=== PATIENT | female | born 1955 | race Hispanic/Latino ===

== ENCOUNTER 2016-12-28 22:10 | Emergency (ER) | payer MEDICARE, MEDICAID ==
[2016-12-28 22:11] VITALS: BMI 28.7
[2016-12-28 22:37] VITALS: TEMP 98.2
[2016-12-28 23:23] VITALS: RESP 16
--- NOTE | 2016-12-29 00:17 | ED PDOC ---
Arrival/HPI <Daily Elijah - Last Filed: 12/29/16 01:34> - General Historian: Patient - History of Present Illness Time/Duration: 4-6 hours Symptom Onset: Sudden Symptom Course: Worsening Quality: Aching Severity Level: 7 Activities at Onset: Light Context: Walking <Dari Smith - Last Filed: 12/29/16 01:54> - General Chief Complaint: Trauma Time Seen by Provider: 12/28/16 23:16 - History of Present Illness Narrative History of Present Illness (Text): 12/28/16 23:56 This is a 61Y F with PMH HTN, SLE, scleroderma, PUD, CKD and CAD who came to ED for L leg swelling secondary to a fall. She reports that this evening she was out at a jainism outing. She was getting out of a van and stumbled and hit her L anterior gomes. She did not hit her head or lose consciousness. She noticed there was a bruise in the area. It started to get bigger in size and patient is on Effient. She is unable to bare weight from the pain. 12/29/16 01:21 (Dari Smith) Past Medical History - Provider Review Nursing Documentation Reviewed: Yes <NathalyElijah jansen DO - Last Filed: 12/29/16 01:34> - Provider Review Nursing Documentation Reviewed: Yes - Infectious Disease Hx of Infectious Diseases: None - Tetanus Immunization Tetanus Immunization: Unknown - Cardiac Hx Pacemaker: No - Pulmonary Hx Respiratory Disorders: Yes - Neurological Hx Paralysis: No - HEENT Hx HEENT Disorder: Yes (eyeglasses) - Renal Hx Kidney Stones: Yes - Endocrine/Metabolic Hx Hyperthyroidism: Yes Hx Hypothyroidism: Yes - Hematological/Oncological Hx Blood Transfusions: Yes (2013) Hx Blood Transfusion Reaction: No - Musculoskeletal/Rheumatological Hx Musculoskeletal Disorders: Yes (SCLERODERMA) - Gastrointestinal Hx Gastroesophageal Reflux: Yes - Psychiatric Hx Emotional Abuse: No Hx Physical Abuse: No Hx Substance Use: No - Past Surgical History Past Surgical History: No Previous - Surgical History Hx Cardiac Catheterization: Yes - Anesthesia Hx Anesthesia Reactions: No Hx Malignant Hyperthermia: No - Suicidal Assessment Feels Threatened In Home Enviroment: No <Dari Smith - Last Filed: 12/29/16 01:54> Family/Social History - Physician Review Nursing Documentation Reviewed: Yes Family/Social History: Hypertension Smoking Status: Never Smoked Hx Alcohol Use: Yes (ON OCCASION) Hx Substance Use: No Hx Substance Use Treatment: No <Dari Smith - Last Filed: 12/29/16 01:54> Allergies/Home Meds <Elijah Ambrosio DO - Last Filed: 12/29/16 01:34> <Dari Smith - Last Filed: 12/29/16 01:54> Allergies/Adverse Reactions: Allergies chicken derived Allergy (Severe, Verified 05/25/16 18:29) ANAPHYLAXIS Home Medications: Home Meds Medication Instructions Recorded Confirmed ALPRAZolam [Xanax] 0.25 mg PO PRN PRN 12/28/16 12/28/16 Aspirin [Ecotrin] 81 mg PO DAILY 12/28/16 12/28/16 Atorvastatin Calcium 40 mg PO DAILY 12/28/16 12/28/16 Dexlansoprazole [Dexilant] 60 mg PO DAILY 12/28/16 12/28/16 Doxepin HCl 10 mg PO HS 12/28/16 12/28/16 FLUoxetine [Prozac] 10 mg PO DAILY 12/28/16 12/28/16 Hydroxychloroquine Sulfate 200 mg PO BID 12/28/16 12/28/16 Levothyroxine [Synthroid] 137 mcg PO DAILY 12/28/16 12/28/16 Nitroglycerin [Nitroglycerin 0.2 mg TD DAILY 12/28/16 12/28/16 Transdermal System] Prasugrel [Effient] 10 mg PO DAILY 12/28/16 12/28/16 Tizanidine HCl [Zanaflex Capsule] 4 mg PO HS 12/28/16 12/28/16 Valsartan [Diovan] 80 mg PO DAILY 12/28/16 12/28/16 amLODIPine [Norvasc] 5 mg PO DAILY 12/28/16 12/28/16 hydroCHLOROthiazide [Hydrodiuril] 25 mg PO DAILY 12/28/16 12/28/16 traMADol [Ultram] 50 mg PO TID 12/28/16 12/28/16 Review of Systems - Physician Review All systems were reviewed & negative as marked: Yes <Elijah Ambrosio DO - Last Filed: 12/29/16 01:34> - Physician Review All systems were reviewed & negative as marked: Yes - Review of Systems Constitutional: Normal. absent: Fevers Respiratory: Normal. absent: SOB, Cough Cardiovascular: Normal. absent: Chest Pain, Palpitations, Edema Gastrointestinal: Normal. absent: Abdominal Pain, Diarrhea, Nausea, Vomiting Musculoskeletal: Other (pain in L leg ) Skin: Normal Neurological: Normal. absent: Dizziness, Focal Weakness <Dari Smith - Last Filed: 12/29/16 01:54> Physical Exam Blood Pressure: Hypertensive <Daily MEADElijah - Last Filed: 12/29/16 01:34> Vital Signs Reviewed: Yes Temperature: Afebrile Blood Pressure: Hypertensive Pulse: Regular Respiratory Rate: Normal Appearance: Positive for: Well-Appearing, Non-Toxic, Comfortable Pain Distress: None Mental Status: Positive for: Alert and Oriented X 3 - Systems Exam Head: Present: Atraumatic, Normocephalic Pupils: Present: PERRL Extroacular Muscles: Present: EOMI Mouth: Present: Moist Mucous Membranes Neck: Present: Normal Range of Motion Respiratory/Chest: Present: Clear to Auscultation, Good Air Exchange. No: Respiratory Distress, Accessory Muscle Use Cardiovascular: Present: Regular Rate and Rhythm, Normal S1, S2. No: Murmurs Abdomen: Present: Normal Bowel Sounds. No: Tenderness, Distention, Peritoneal Signs Back: Present: Normal Inspection Upper Extremity: Present: Normal Inspection. No: Cyanosis, Edema Lower Extremity: Present: Swelling (in L anterior tibia with bruising ). No: Edema Neurological: Present: GCS=15, CN II-XII Intact, Speech Normal Skin: Present: Warm, Dry, Normal Color. No: Rashes Psychiatric: Present: Alert, Oriented x 3, Normal Insight, Normal Concentration <Dari Smith - Last Filed: 12/29/16 01:54> Vital Signs Temp Pulse Resp BP Pulse Ox 12/29/16 01:51 76 16 172/80 H 99 12/29/16 00:30 73 16 162/80 H 100 12/29/16 00:05 66 185/90 H 12/28/16 23:20 68 16 191/90 H 100 12/28/16 22:32 98.2 F 74 19 192/90 H 98 Medical Decision Making <Daily MEADElijah - Last Filed: 12/29/16 01:34> Re-evaluation Time: 01:10 Reassessment Condition: Unchanged - RAD Interpretation Software Engineering Associate Manager: ED Physician <Dari Smith - Last Filed: 12/29/16 01:54> ED Course and Treatment: 12/29/16 01:35 Patient seen and evaluated with resident. Agree with HPI, clinical findings, plan and treatment. Patient is a 61 year old female who presents to the emergency department complaining of swelling to left leg s/p mechanical fall in the evening. X-ray Left tib/fib ordered, which is negative for any acute fracture. Patient is stable for discharge. Advised to present to emergency department for new/worsening symptoms and follow up with PMD within few days. (Elijah Ambrosio DO) 12/29/16 00:24 Impression: This is a 61Y F with PMH HTN, SLE, scleroderma, PUD, CKD and CAD who came to ED for L leg swelling secondary to mechanical fall. Patient noticed increased swelling and bruising in the area. She is also on Effient and is unable to bare weight on leg. Patient also noted to be hypertensive with SBP of 190. Differential Diagnosis: -- Hematoma versus fracture Plan: -- XR of L tibia/fibula -- Hydralazine IVP once -- Reassess and disposition Prior Visits: Notes and results from previous visits were reviewed. Progress Note: XR of L tibia/fibula showed soft tissue swelling. Negative for fracture. Patient able to bare weight. Pulses intact. Discharge Instructions: Re-evaluation. Patient feels better. Discussed results and plan with patient who expresses understanding. All questions answered and there is agreement with the plan to discharge home with instructions. Patient stable for discharge. Return if symptoms persist or worsen. ( Dari Smith) - RAD Interpretation Narrative RAD Interpretations (Text): 12/29/16 01:22 L knee XR showed soft tissue swelling. No fractures seen. (Dari Smith) Radiology Orders: 12/28/16 23:24 TIBIA FIBULA LEFT [RAD] Stat - Medication Orders Current Medication Orders: Discontinued Medications Hydralazine HCl (Apresoline) 10 mg IVP STAT STA Stop: 12/28/16 23:44 Last Admin: 12/29/16 00:05 Dose: 10 mg - Scribe Statement The provider has reviewed the documentation as recorded by the Scribe <Elijah Ambrosio DO - Last Filed: 12/29/16 01:34> <Dari Smith - Last Filed: 12/29/16 01:54> - Scribe Statement Jennifer Sahu Provider Scribe Attestation: All medical record entries made by the Scribe were at my direction and personally dictated by me. I have reviewed the chart and agree that the record accurately reflects my personal performance of the history, physical exam, medical decision making, and the department course for this patient. I have also personally directed, reviewed, and agree with the discharge instructions and disposition. (Elijah Ambrosio DO) Disposition/Present on Arrival <Elijah Ambrosio DO - Last Filed: 12/29/16 01:34> - Present on Arrival Any Indicators Present on Arrival: No History of DVT/PE: No History of Uncontrolled Diabetes: No Urinary Catheter: No History of Decub. Ulcer: No History Surgical Site Infection Following: None - Disposition Have Diagnosis and Disposition been Completed?: Yes Disposition Time: 01:15 Patient Plan: Discharge <Dari Smith - Last Filed: 12/29/16 01:54> - Disposition Diagnosis: Hematoma of leg Disposition: HOME/ ROUTINE Patient Problems: Current Active Problems Problem Status Onset Hematoma of leg Acute Condition: FAIR Discharge Instructions (ExitCare): Hematoma (ED) Print Language: HAITIAN Additional Instructions: Geovany Neto, thank you for letting us take care of you today. Your provider was Dr. Smith. You were treated for L tibia hematoma. The emergency medical care you received today was directed at your acute symptoms. If you were prescribed any medication, please fill it and take as directed. It may take several days for your symptoms to resolve. Return to the Emergency Department if your symptoms worsen, do not improve, or if you have any other problems. Please contact your doctor or call one of the physicians/clinics you have been referred to that are listed on the Patient Visit Information form that is included in your discharge packet. Bring any paperwork you were given at discharge with you along with any medications you are taking to your follow up visit. Our treatment cannot replace ongoing medical care by a primary care provider (PCP) outside of the emergency department. Thank you for allowing the [facility] hospital team to be part of your care today. If you had an X-Ray or CT scan: A Radiologist will review the ED reading if any change in treatment is needed we will contact you. Follow up with Dr. Hayward in AM. Prescriptions: Acetaminophen [Tylenol Extra Strength] 500 mg PO Q6H PRN #20 tablet PRN Reason: Pain, Moderate (4-7) Referrals: Donnell Hayward MD [Primary Care Provider] - Follow up with primary
[2016-12-29 01:51] VITALS: BP 172/80; PULSE 76; O2SAT 99
--- NOTE | 2016-12-29 09:20 | RAD ---
PROCEDURE: Radiographs of the left tibia and fibula. HISTORY: L hematoma s/p trip COMPARISON: None available. TECHNIQUE: Frontal and lateral views obtained. FINDINGS: BONES: No fracture or destructive lesion. JOINT SPACES: Unremarkable. OTHER FINDINGS: None. IMPRESSION: Unremarkable radiographs of the left tibia and fibula.
== END 2016-12-29 02:01 | disposition home or self-care (01) ==
LOC: ED 22:10
DX: S80.12XA Contusion of left lower leg, initial encounter (principal); W01.0XXA Fall on same level from slipping, tripping and stumbling without subsequent striking against object, initial encounter; Y92.89 Other specified places as the place of occurrence of the external cause
CPT/HCPCS: 73590; 96374; 99285; J0360

== ENCOUNTER 2017-01-05 10:41 | Day surgery (SDC) | payer MEDICARE, MEDICAID ==
[2017-01-02 13:28] VITALS: BMI 26.4
[2017-01-05] MEDS ORDERED: Etomidate 20 mg/10ml Inj IV ONE ×2 (12:59)
[2017-01-05] MEDS ORDERED: Lactated Ringer's 1,000 ML IV SCH (13:17)
[2017-01-05 13:48] VITALS: RESP 17
[2017-01-05 13:58] VITALS: TEMP 97.7
[2017-01-05 14:16] VITALS: BP 140/64; PULSE 60; O2SAT 99
== END 2017-01-05 14:53 | disposition home or self-care (01) ==
LOC: ENDO 10:41
PROVIDERS: ATTEND Internal Medicine Gastroenterology
DX: K22.70 Barrett's esophagus without dysplasia (principal); K44.9 Diaphragmatic hernia without obstruction or gangrene; R13.10 Dysphagia, unspecified; I25.10 Atherosclerotic heart disease of native coronary artery without angina pectoris; Z98.61 Coronary angioplasty status
CPT/HCPCS: 43235; J3010; J7040; J7120

== ENCOUNTER 2017-03-15 15:06 | Inpatient (IN) | payer MEDICARE, MEDICAID ==
[2017-03-15 15:38] VITALS: BMI 26.8
--- NOTE | 2017-03-15 15:42 | ED PDOC ---
Arrival/HPI - General Chief Complaint: Shortness Of Breath Time Seen by Provider: 03/15/17 15:24 Historian: Patient, Spouse - History of Present Illness Time/Duration: 1 week Symptom Onset: Gradual Symptom Course: Worsening Severity Level: Moderate Associated Symptoms (Text): 03/15/17 15:39 Patient complains of approximately one week history of shortness of breath, especially dyspnea on exertion. She had a syncopal episode several days ago. She denies any chest pain. No cough congestion or URI. No fever. No abdominal pain nausea or vomiting. She was seen by her PMD earlier today and directed to the emergency department. She has had several cardiac catheterizations last one was 05/25/2016 with an LAD stent. Past Medical History - Infectious Disease Hx of Infectious Diseases: None - Tetanus Immunization Tetanus Immunization: Unknown - Cardiac Hx Pacemaker: No - Pulmonary Hx Respiratory Disorders: Yes - Neurological Hx Paralysis: No - HEENT Hx HEENT Disorder: Yes (eyeglasses) - Renal Hx Kidney Stones: Yes - Endocrine/Metabolic Hx Hyperthyroidism: Yes Hx Hypothyroidism: Yes - Hematological/Oncological Hx Blood Transfusions: Yes (2013) Hx Blood Transfusion Reaction: No - Musculoskeletal/Rheumatological Hx Musculoskeletal Disorders: Yes (SCLERODERMA - LUPUS) - Gastrointestinal Hx Gastroesophageal Reflux: Yes - Psychiatric Hx Emotional Abuse: No Hx Physical Abuse: No Hx Substance Use: No - Past Surgical History Past Surgical History: No Previous - Surgical History Hx Cardiac Catheterization: Yes - Anesthesia Hx Anesthesia Reactions: No Hx Malignant Hyperthermia: No - Suicidal Assessment Feels Threatened In Home Enviroment: No Family/Social History - Physician Review Nursing Documentation Reviewed: Yes Family/Social History: Unknown Family HX Smoking Status: Never Smoked Hx Alcohol Use: Yes (ON OCCASION) Hx Substance Use: No Hx Substance Use Treatment: No Allergies/Home Meds Allergies/Adverse Reactions: Allergies chicken derived Allergy (Severe, Verified 01/02/17 13:28) ANAPHYLAXIS Home Medications: Home Meds Medication Instructions Recorded Confirmed Alprazolam [Xanax] 0.25 mg PO PRN PRN 03/15/17 03/15/17 Aspirin [Adult Low Dose Aspirin EC] 81 mg PO DAILY 03/15/17 03/15/17 Atorvastatin Calcium 40 mg PO DAILY 03/15/17 03/15/17 Dexlansoprazole [Dexilant] 60 mg PO DAILY 03/15/17 03/15/17 Doxepin HCl 10 mg PO HS 03/15/17 03/15/17 FLUoxetine [Fluoxetine HCl] 20 mg PO DAILY 03/15/17 03/15/17 Hydroxychloroquine Sulfate 400 mg PO DAILY 03/15/17 03/15/17 Levothyroxine [Synthroid] 137 mcg PO DAILY 03/15/17 03/15/17 Nitroglycerin [Nitroglycerin 0.2 mg TD DAILY 03/15/17 03/15/17 Transdermal System] Prasugrel [Effient] 10 mg PO DAILY 03/15/17 03/15/17 Tizanidine HCl 4 mg PO HS 03/15/17 03/15/17 Valsartan [Diovan] 80 mg PO DAILY 03/15/17 03/15/17 amLODIPine [Norvasc] 5 mg PO DAILY 03/15/17 03/15/17 hydroCHLOROthiazide [Hydrodiuril] 25 mg PO DAILY 03/15/17 03/15/17 traMADol [Ultram] 50 mg PO TID 03/15/17 03/15/17 Review of Systems - Physician Review All systems were reviewed & negative as marked: Yes - Review of Systems Constitutional: Fatigue. absent: Fevers Respiratory: SOB. absent: Cough, Sputum, Wheezing Cardiovascular: Syncope. absent: Chest Pain, Palpitations, Edema Gastrointestinal: Normal. absent: Abdominal Pain, Nausea, Vomiting Genitourinary Female: absent: Dysuria, Frequency Neurological: absent: Headache, Dizziness, Focal Weakness Physical Exam Vital Signs Temp Pulse Resp BP Pulse Ox 03/15/17 17:34 78 18 167/77 H 100 03/15/17 16:39 75 18 185/85 H 100 03/15/17 15:15 98.0 F 61 18 214/81 H 100 Temperature: Afebrile Blood Pressure: Hypertensive Pulse: Regular Respiratory Rate: Normal Appearance: Positive for: Well-Appearing, Non-Toxic, Comfortable Pain Distress: None Mental Status: Positive for: Alert and Oriented X 3 - Systems Exam Head: Present: Atraumatic, Normocephalic Pupils: Present: PERRL Extroacular Muscles: Present: EOMI Conjunctiva: Present: Normal Mouth: Present: Moist Mucous Membranes Pharnyx: No: ERYTHEMA, EXUDATE, TONSILS ENLARGED Neck: Present: Normal Range of Motion Respiratory/Chest: Present: Clear to Auscultation, Good Air Exchange, Decreased Breath Sounds. No: Respiratory Distress, Accessory Muscle Use, Tender to Palpation Cardiovascular: Present: Regular Rate and Rhythm, Normal S1, S2. No: Murmurs Abdomen: Present: Normal Bowel Sounds. No: Tenderness, Distention, Peritoneal Signs, Rebound, Guarding Rectal: Present: Occult Blood, Normal Rectal Tone. No: Rectal Tenderness, Gross Blood, Melena, Hemorrhoids, Fissures, Nodule/Mass/Lesions Upper Extremity: Present: Normal Inspection. No: Cyanosis, Edema Lower Extremity: Present: Normal Inspection. No: Edema Neurological: Present: GCS=15, CN II-XII Intact, Speech Normal, Motor Func Grossly Intact Skin: Present: Warm, Dry, Normal Color. No: Rashes Psychiatric: Present: Alert, Oriented x 3, Normal Insight, Normal Concentration Medical Decision Making ED Course and Treatment: 03/15/17 15:41 EKG shows normal sinus rhythm rate approximately [address] or T-wave changes 03/15/17 17:25 Rectal exam performed by me, chaperoned by EMT Becky, which showed brown stool, guaiac positive. Report Date : 03/15/2017 16:36:45 Procedure: Chest xray Dictator : Lawrence aBhena MD IMPRESSION: No active disease. - Lab Interpretations Lab Results: 03/15/17 16:00 03/15/17 16:00 Lab Results 03/15/17 16:00: Sodium 143, Potassium 3.4 L, Chloride 106, Carbon Dioxide 23, Anion Gap 17, BUN 18, Creatinine 1.2, Est GFR ( Amer) 55, Est GFR (Non- Af Amer) 46, Random Glucose 95, Calcium 9.1, Total Bilirubin 0.4, AST 21, ALT 20 , Alkaline Phosphatase 55, Lactate Dehydrogenase 488, Total Creatine Kinase 64, Troponin I < 0.01, NT-Pro-B Natriuret Pep 2500 H, Total Protein 7.3, Albumin 4.3 , Globulin 3.1, Albumin/Globulin Ratio 1.4 03/15/17 16:00: Urine Color Straw, Urine Appearance Clear, Urine pH 6.5, Ur Specific Morrill <= 1.005, Urine Protein Negative, Urine Glucose (UA) Negative, Urine Ketones Negative, Urine Blood Negative, Urine Nitrate Negative, Urine Bilirubin Negative, Urine Urobilinogen 0.2, Ur Leukocyte Esterase Negative 03/15/17 16:00: PT 11.1, INR 1.03, APTT 23.2 L, D-Dimer, Quantitative 0.59 H 03/15/17 16:00: WBC 4.5, RBC 2.82 L, Hgb 7.0 L D, Hct 23.7 L, MCV 84.0, MCH 24.8 L, MCHC 29.5 L, RDW 16.2 H, Plt Count 209, MPV 10.0, Gran % 56.3, Lymph % ( Auto) 29.2, Marshall % (Auto) 12.2 H, Eos % (Auto) 1.6, Baso % (Auto) 0.7, Gran # 2.53, Lymph # 1.3, Marshall # 0.6, Eos # 0.1, Baso # 0.03 - RAD Interpretation Radiology Orders: 03/15/17 15:38 CHEST PORTABLE [RAD] Stat - Medication Orders Current Medication Orders: Discontinued Medications Nitroglycerin (Nitro-Bid 2% Oint) 1 ea TOP STAT STA Stop: 03/15/17 15:52 Last Admin: 03/15/17 16:15 Dose: 1 ea Pantoprazole Sodium (Protonix Inj) 40 mg IVP ONCE STA Stop: 03/15/17 17:25 Last Admin: 03/15/17 17:43 Dose: 40 mg Disposition/Present on Arrival - Present on Arrival Any Indicators Present on Arrival: No History of DVT/PE: No History of Uncontrolled Diabetes: No Urinary Catheter: No History of Decub. Ulcer: No History Surgical Site Infection Following: None - Disposition Have Diagnosis and Disposition been Completed?: Yes Diagnosis: Dyspnea, Anemia, Gastrointestinal hemorrhage, CAD (coronary artery disease) Disposition: HOSPITALIZED Disposition Time: 17:45 Patient Plan: Observation, Telemetry Condition: FAIR Referrals: Donnell Hayward MD [Primary Care Provider] - Follow up with primary
[2017-03-15] MEDS ORDERED: Nitroglycerin 2% Ointment Foilpak UD TOP STA (15:51)
[2017-03-15 16:11] LABS: PH,URINE 6.5 (4.7-8.0); URINE APPEARANCE CLEAR (CLEAR); URINE BILIRUBIN NEGATIVE (NEGATIVE); URINE BLOOD NEGATIVE (NEGATIVE); URINE COLOR STRAW (YELLOW); URINE GLUCOSE (UA) NEGATIVE (NEGATIVE); URINE LEUKOCYTE ESTERASE NEGATIVE Leu/uL (NEGATIVE); URINE NITRATE NEGATIVE (NEGATIVE); URINE PROTEIN NEGATIVE mg/dL (<30 mg/dL); URINE UROBILINOGEN 0.2 E.U./dL (<1 E.U./dL)
[2017-03-15 16:30] LABS: ALB/GLOB RATIO 1.4 (1.1-1.8); ALBUMIN 4.3 g/dL (3.0-4.8); ALT/SGPT 20 U/L (7-56); AST/SGOT 21 U/L (15-39); BLOOD UREA NITROGEN 18 mg/dL (7-21); CALCIUM 9.1 mg/dL (8.4-10.5); GFR AFRICAN-AMERICAN 55; GFR NON-AFRICAN AMERICAN 46
[2017-03-15 16:32] LABS: BASO # 0.03 K/mm3 (0.0-2.0); BASO % 0.7 % (0.0-3.0); EOS # 0.1 (0.0-0.7); EOS % 1.6 % (1.5-5.0); GRAN # 2.53 (1.4-6.5); GRAN % 56.3 % (50.0-68.0); LYMPH # 1.3 (1.2-3.4); LYMPH % 29.2 % (22.0-35.0); MEAN CORPUSCULAR HEMOGLOBIN 24.8 pg (25.0-35.0); MEAN CORPUSCULAR HGB CONC 29.5 g/dl (31.0-37.0); MONO # 0.6 (0.1-0.6); MONO % 12.2 % (1.0-6.0); PLATELET COUNT 209 10^3/uL (120.0-450.0); RBC 2.82 10^6/uL (3.5-6.1); RED CELL DISTRIBUTION WIDTH 16.2 % (11.5-14.5); WHITE BLOOD COUNT 4.5 10^3/ul (4.5-11.0)
--- NOTE | 2017-03-15 16:38 | RAD ---
HISTORY: sob COMPARISON: 05/26/2015 FINDINGS: LUNGS: No active pulmonary disease. PLEURA: No significant pleural effusion identified, no pneumothorax apparent. CARDIOVASCULAR: Mild cardiomegaly OSSEOUS STRUCTURES: No significant abnormalities. VISUALIZED UPPER ABDOMEN: Normal. OTHER FINDINGS: None. IMPRESSION: No active disease.
[2017-03-15 16:41] LABS: B-TYPE NATRIURETIC PEPTIDE 2500 pg/mL (0-450); INR 1.03 (0.93-1.08); PARTIAL THROMBOPLASTIN TIME 23.2 Seconds (23.7-30.8); PROTHROMBIN TIME 11.1 Seconds (9.9-11.8)
[2017-03-15 16:42] LABS: D DIMER 0.59 mg/L FEU (0-0.50)
[2017-03-15 16:47] LABS: TROPONIN I < 0.01 ng/mL
[2017-03-15 21:31] LABS: IRON 19 ug/dL (45-180); TOTAL IRON BINDING CAPACITY 389 ug/dL (265-497)
--- NOTE | 2017-03-15 21:35 | CP.PCM.HP ---
History of Present Illness - History of Present Illness History of Present Illness: CC: Shortness of Breath on exertion/Malignant Hypertension HPI: Mrs. Duque is a 62 year old female with a past medical history of HTN, SLE , Scleroderma, Phan's Esophagus, CKD, CAD, and NSTEMI, who presented to the ED after being having had a blood pressure of 180/110 in the office of her PMD and being told she needed to be seen immediately. Patient reports that she has had intermittent elevated blood pressure for two weeks, headaches and also blurry vision for one week. She tried 0.1mg of clonidine at home both Sunday evening and with no drop in her pressures. Patient also reports that she has had increasing shortness of breath with exertion. She was walking to the bank and reported near syncope after walking two blocks. At this time, she decided to go to her PMD's office to be seen. She states that she has, at times, been short of breath on exertion before but never to this degree and never after walking that short of a distance. She reports that her blood pressure has been under control at home prior to the last few weeks. Patient denies fever, chills, syncope, hair loss, neck pain, joint pain chest pain, palpitations, pleurisy, cough, nausea, vomiting, hematemesis, hematochezia, dark tarry stools, bright red blood per rectum, constipation, diarrhea or any weakness. She does endorse dysphagia and numbness/ tingling of her fingers. PMH: HTN, SLE, Scleroderma, Phan's Esophagus, CKD, CAD, and NSTEMI PSH: 7 stents placed in her heart, most recently in May Family History: Father -CVA Social History: Denies tobacco, alcohol or illicit drug use Allergies: chicken derived Home Medications: As per OCT PMD: Dr. Hayward Present on Admission - Present on Admission Any Indicators Present on Admission: No Review of Systems - Review of Systems Review of Systems: As per HPI Past Patient History - Infectious Disease Hx of Infectious Diseases: None - Tetanus Immunizations Tetanus Immunization: Unknown - Past Social History Smoking Status: Never Smoked - CARDIAC Hx Pacemaker: No - PULMONARY Hx Respiratory Disorders: Yes - NEUROLOGICAL Hx Paralysis: No - HEENT Hx HEENT Problems: Yes (eyeglasses) - RENAL Hx Kidney Stones: Yes - ENDOCRINE/METABOLIC Hx Hyperthyroidism: Yes Hx Hypothyroidism: Yes - HEMATOLOGICAL/ONCOLOGICAL Hx Blood Transfusions: Yes (2013) Hx Blood Transfusion Reaction: No - MUSCULOSKELETAL/RHEUMATOLOGICAL Hx Musculoskeletal Disorders: Yes (SCLERODERMA - LUPUS) - GASTROINTESTINAL Hx Gastroesophageal Reflux: Yes - PSYCHIATRIC Hx Emotional Abuse: No Hx Physical Abuse: No Hx Substance Use: No - SURGICAL HISTORY Hx Cardiac Catheterization: Yes - ANESTHESIA Hx Anesthesia Reactions: No Hx Malignant Hyperthermia: No Meds Allergies/Adverse Reactions: Allergies Allergy/AdvReac Type Severity Reaction Status Date / Time chicken derived Allergy Severe ANAPHYLAXIS Verified 01/02/17 13:28 Physical Exam - Constitutional Appears: No Acute Distress - Head Exam Head Exam: NORMAL INSPECTION, NORMOCEPHALIC - Eye Exam Eye Exam: EOMI, Normal appearance. absent: Periorbital swelling, Scleral icterus Pupil Exam: NORMAL ACCOMODATION, PERRL. absent: Fixed, Irregular, Unequal - ENT Exam ENT Exam: Mucous Membranes Moist, Normal Exam - Neck Exam Neck exam: Positive for: Full Rom. Negative for: Thyromegaly Additional comments: tight skin/stricture on bilateral neck - Respiratory Exam Respiratory Exam: Clear to Auscultation Bilateral, NORMAL BREATHING PATTERN. absent: Rales, Rhonchi, Wheezes, Respiratory Distress - Cardiovascular Exam Cardiovascular Exam: REGULAR RHYTHM, RRR, +S1, +S2. absent: Tachycardia, Systolic Murmur - GI/Abdominal Exam GI & Abdominal Exam: Normal Bowel Sounds, Soft. absent: Distended, Firm, Guarding, Organomegaly, Rebound, Tenderness - Rectal Exam Rectal Exam: absent: Black Stool, Bloody Stool, Fecal Impaction Additional comments: wart-like growth at the 6oclock position - Exam Exam: absent: Bladder Distension - Extremities Exam Extremities exam: Positive for: normal capillary refill, pedal pulses present. Negative for: calf tenderness, pedal edema Additional comments: pitting ulcerations on bilateral fingertips; fingers cold with pallor - Back Exam Back exam: absent: rash noted - Neurological Exam Neurological exam: Alert, Oriented x3 - Psychiatric Exam Psychiatric exam: Normal Affect, Normal Mood - Skin Skin Exam: Dry, Intact, Normal Color, Warm Results - Vital Signs Recent Vital Signs: Last Vital Signs Temp 98.0 F 03/15/17 15:15 Pulse 64 03/15/17 20:28 Resp 100 H 03/15/17 20:28 BP 149/72 03/15/17 20:28 Pulse Ox 16 L 03/15/17 20:28 - Labs Result Diagrams: 03/15/17 16:00 03/15/17 16:00 Assessment & Plan - Assessment and Plan (Free Text) Assessment: 62 year old female with a past medical history of HTN, SLE, Scleroderma, Phan 's Esophagus, CKD, CAD, and NSTEMI, who presented to the ED after being having had a blood pressure of 180/110 in the office of her PMD and being told she needed to be seen immediately. Found later to have guauic positive stool. Plan: 1. Malignant Hypertension -patient given clonidine 0.2mg and nitro in ED -Blood pressures have been WNL since admission to floors -cont home norvasc and HCTZ -telemetry monitoring 2. Symptomatic Anemia -SOB on exertion -H/H found to be 7.0/23 -patient given 2un of pRBC's -iron studies, folate, B12 and peripheral smear pending 3. Acute GI bleed -found to have positive guauic stool -recent endoscopy showed barretts esophagus with no ulcers; reports most recent endoscopy 2-3 years ago and was normal -GI consulted, Jennifer; will follow recommendations -will consider stopping effient if H/H continues to decline 4. Elevated D-Dimer -bilateral LE duplex -V/Q scan -impaired renal function so CT angio not indicated 5. History of SLE -cont home hydroxychloroquine 6. GI/DVT Prophylaxis -Protonix/scd's Patient seen and case discussed with attending, Dr. Mckinnon. - Date & Time Date: 03/15/17 Time: 09:35 Decision To Admit - Pt Status Changed To: Hospital Disposition Of: Observation - . Bed Request Type: Telemetry
[2017-03-15] MEDS ORDERED: TIZANIDINE HCL 4 MG PO SCH (22:00)
--- NOTE | 2017-03-15 23:39 | CT ---
EXAM: CT Abdomen and Pelvis Without Intravenous Contrast CLINICAL HISTORY: 62 years old, female; Screening exam; Other: Stool guiac positive TECHNIQUE: Axial computed tomography images of the abdomen and pelvis without intravenous contrast. This CT exam was performed using one or more of the following dose reduction techniques: automated exposure control, adjustment of the mA and/or kV according to patient size, and/or use of iterative reconstruction technique. Coronal and sagittal reformatted images were created and reviewed. COMPARISON: CT - ABD PELVIS W/O PO OR IV CONT 12/07/2016 9:46:55 AM FINDINGS: Partial visualization of minimal pericardial effusion. Mosaic attenuation/evidence of air trapping at the lung bases. The unenhanced liver, spleen, pancreas and adrenal glands demonstrate no acute abnormalities. Status post cholecystectomy. No obstructing renal calculus or hydronephrosis. Please note evaluation for underlying visceral lesions/abnormalities limited without intravenous contrast. Atherosclerosis. Small fat containing umbilical hernia. Evaluation of the bowel limited without enteric contrast. Small hiatal hernia. The small and large bowel as visualized demonstrate no evidence of obstruction or clear focus of inflammation. Limited evaluation of the unenhanced pelvic viscera. No ascites. No free air. Age-appropriate osseous structures. Sclerotic focus right sacrum, likely bone island. IMPRESSION: No definitive acute CT finding to correspond to reported history. Please see additional details/findings as above. Some of the above findings may warrant followup evaluation. Correlate clinically. Followup as warranted.
[2017-03-16] MEDS: DOXEPIN HCL 10 MG PO SCH ×2 (00:22→22:52)
[2017-03-16 07:07] LABS: BASO # 0.02 K/mm3 (0.0-2.0); BASO % 0.5 % (0.0-3.0); EOS # 0.1 (0.0-0.7); EOS % 2.4 % (1.5-5.0); GRAN # 2.31 (1.4-6.5); GRAN % 55.9 % (50.0-68.0); LYMPH # 1.1 (1.2-3.4); LYMPH % 25.7 % (22.0-35.0); MEAN CELL VOLUME 84.2 fL (80.0-105.0); MEAN CORPUSCULAR HEMOGLOBIN 26.3 pg (25.0-35.0); MEAN CORPUSCULAR HGB CONC 31.3 g/dl (31.0-37.0); MEAN PLATELET VOLUME 9.8 fl (7.0-11.0); MONO # 0.6 (0.1-0.6); MONO % 15.5 % (1.0-6.0); PLATELET COUNT 175 10^3/uL (120.0-450.0); RBC 3.42 10^6/uL (3.5-6.1); RED CELL DISTRIBUTION WIDTH 15.2 % (11.5-14.5); WHITE BLOOD COUNT 4.1 10^3/ul (4.5-11.0)
[2017-03-16 07:23] LABS: ALB/GLOB RATIO 1.5 (1.1-1.8); CALCIUM 9.2 mg/dL (8.4-10.5)
[2017-03-16] MEDS: Pantoprazole 40 mg EC Tab PO SCH (07:56)
[2017-03-16] MEDS: Levothyroxine 112 MCG TAB PO SCH (07:56)
[2017-03-16] MEDS: Levothyroxine 25 MCG TAB PO SCH (07:56)
--- NOTE | 2017-03-16 09:05 | CARD ---
APPROVED REPORT EKG Measurement Heart [id number] <Conclusion> Normal sinus rhythm Q in 3 Prolonged QT
[2017-03-16] MEDS ORDERED: Non Formulary Medication (Dexlansoprazole [Dexilant] 60 MG) PO SCH (10:00)
[2017-03-16] MEDS ORDERED: Non Formulary Medication (Valsartan [Diovan] 80 MG) PO SCH (10:00)
--- NOTE | 2017-03-16 12:44 | NM ---
COMPARISON: March 15, 2017. TECHNIQUE: 33.0 mCi technetium 99-m DTPA aerosol. 3.0 mCI technetium 99-m MAA administered intravenously. FINDINGS: VENTILATION COMPONENT: Heterogeneous ventilation, moderate in degree PERFUSION COMPONENT: Matched defects in the right upper lobe. Otherwise unremarkable perfusion. IMPRESSION: Low probability ventilation perfusion scan for pulmonary embolism.
[2017-03-16 12:48] LABS: FERRITIN 6.5 ng/mL
[2017-03-16 13:18] LABS: FOLATE 11.9 ng/mL
--- NOTE | 2017-03-16 13:35 | CP.PCM.CON ---
<Opal Juan - Last Filed: 03/16/17 13:33> History of Present Illness - History of Present Illness History of Present Illness: seen and examined at the bedside earlier today. The chart was reviewed. Request for consultation is for anemia and GI bleed. HPI: This is a 62-year-old female with a past medical history of scleroderma, SLE, hypertension, Phan's esophagus, CAD status post multiple stents and on Effient was sent to the emergency room by her PCP for elevated blood pressure complaints of headache and blurry vision for 1 week. She also was complaining of increasing shortness of breath on exertion. Patient states that she try taking her clonidine Adderall on Sunday evening on morning but with no improvement. She also reported that she was recently at her [id number] in [place] helping out cleaning mite infestation and exposed to rodent feces , patient thought that may have contributed to her shortness of breath. She denies any nausea, vomiting, any change in bowel habits. Does not notice any melena or bright red blood per rectum. No fever or chills. On evaluation she was found to have a hemoglobin of 7.0, she she is status post 2 units of packed RBC but was also found to have positive guaiac. Her last dose of FEN was yesterday in the morning. On admission she had a CT scan of abdomen and pelvis with no contrast, patient states that she is not a candidate for IV oral contrast secondary to her renal failure and scleroderma. On the CAT scan it showed a small fat-containing hernia, and evaluation of the bowel is limited without enteric contrast. There is also sclerotic focus on the right sacrum. This morning she does report improvement of her respiratory status. Her last noted endoscopy wasDecember 2016 found to have long segment Phan's esophagus, hiatal hernia and dilated the esophagus. Past medical history: SLE, hypertension, scleroderma, Phan's esophagus, chronic kidney disease, CAD, and an AST SD Surgical history: 7 cardiac stents, most recentOctober, esophageal stent in 2006 , neck surgery in 2002, and lap cholecystectomy. Last colonoscopy was at least 3-5 years ago per patient. Social history: Denies tobacco, EtOH, or substance abuse Allergies: Chicken Meds: Reviewed as per MAR Family history: Father: CVA Review of systems systems reviewed with positive finding see HPI Past Patient History - Infectious Disease Hx of Infectious Diseases: None - Tetanus Immunizations Tetanus Immunization: Unknown - Past Social History Smoking Status: Never Smoked - CARDIAC Hx Pacemaker: No - PULMONARY Hx Respiratory Disorders: Yes - NEUROLOGICAL Hx Paralysis: No - HEENT Hx HEENT Problems: Yes (eyeglasses) - RENAL Hx Kidney Stones: Yes - ENDOCRINE/METABOLIC Hx Hyperthyroidism: Yes Hx Hypothyroidism: Yes - HEMATOLOGICAL/ONCOLOGICAL Hx Blood Transfusions: Yes (2013) Hx Blood Transfusion Reaction: No - INTEGUMENTARY Hx Dermatological Problems: No - MUSCULOSKELETAL/RHEUMATOLOGICAL Hx Musculoskeletal Disorders: Yes (SCLERODERMA - LUPUS) - GASTROINTESTINAL Hx Gastroesophageal Reflux: Yes - GENITOURINARY/GYNECOLOGICAL Other/Comment: c-sections, breast self examination - PSYCHIATRIC Hx Emotional Abuse: No Hx Physical Abuse: No Hx Substance Use: No - SURGICAL HISTORY Hx Cardiac Catheterization: Yes - ANESTHESIA Hx Anesthesia Reactions: No Hx Malignant Hyperthermia: No Meds Allergies/Adverse Reactions: Allergies Allergy/AdvReac Type Severity Reaction Status Date / Time chicken derived Allergy Severe ANAPHYLAXIS Verified 01/02/17 13:28 - Medications Medications: Current Medications Amlodipine Besylate (Norvasc) 5 mg PO DAILY [facility] Last Admin: 03/16/17 10:07 Dose: 5 mg Atorvastatin Calcium (Lipitor) 40 mg PO DAILY [facility] Last Admin: 03/16/17 10:07 Dose: 40 mg Fluoxetine HCl (Prozac) 20 mg PO DAILY [facility] Last Admin: 03/16/17 10:07 Dose: 20 mg Hydrochlorothiazide (Hydrodiuril) 25 mg PO DAILY [facility] Last Admin: 03/16/17 10:07 Dose: 25 mg Hydroxychloroquine Sulfate (Plaquenil) 400 mg PO DAILY [facility] Last Admin: 03/16/17 10:08 Dose: 400 mg Levothyroxine Sodium (Synthroid) 112 mcg PO ACB [facility] Last Admin: 03/16/17 07:56 Dose: 112 mcg Levothyroxine Sodium (Synthroid) 25 mcg PO ACB [facility] Last Admin: 03/16/17 07:56 Dose: 25 mcg Losartan Potassium (Cozaar) 50 mg PO DAILY [facility] Last Admin: 03/16/17 10:08 Dose: 50 mg Non-Formulary Medication (Doxepin Hcl [Doxepin Hcl]) 10 mg PO HS [facility] Last Admin: 03/16/17 00:22 Dose: Not Given Pantoprazole Sodium (Protonix Ec Tab) 40 mg PO ACB [facility] Last Admin: 03/16/17 07:56 Dose: 40 mg Prasugrel (Effient) 10 mg PO DAILY [facility] Last Admin: 03/16/17 10:07 Dose: 10 mg Tizanidine HCl (Zanaflex) 4 mg PO HS [facility] Last Admin: 03/16/17 00:13 Dose: Not Given Tramadol HCl (Ultram) 50 mg PO TID [facility] Last Admin: 03/16/17 10:48 Dose: Not Given Physical Exam - Constitutional Appears: No Acute Distress - Head Exam Head Exam: NORMAL INSPECTION - Eye Exam Eye Exam: Normal appearance. absent: Scleral icterus - ENT Exam ENT Exam: Mucous Membranes Moist - Neck Exam Neck exam: Positive for: Normal Inspection - Respiratory Exam Respiratory Exam: NORMAL BREATHING PATTERN. absent: Respiratory Distress - Cardiovascular Exam Cardiovascular Exam: +S1, +S2 - GI/Abdominal Exam GI & Abdominal Exam: Normal Bowel Sounds, Soft. absent: Distended, Guarding, Rebound, Tenderness - Extremities Exam Extremities exam: Positive for: pedal edema, pedal pulses present. Negative for : calf tenderness - Neurological Exam Neurological exam: Alert, Oriented x3 - Skin Skin Exam: Dry, Warm Results - Vital Signs Recent Vital Signs: Last Vital Signs Temp 97.5 F L 03/16/17 06:49 Pulse 68 03/16/17 10:08 Resp 20 03/16/17 06:49 BP 160/76 H 03/16/17 10:08 Pulse Ox 96 03/16/17 06:25 - Labs Result Diagrams: 03/16/17 06:15 03/16/17 06:15 Assessment & Plan - Assessment and Plan (Free Text) Assessment: Assessment: Anemia, status post blood transfusion Positive guaiac Phan's esophagus Coronary artery disease status post multiple stents on Effient Scleroderma SLE Hypertension Chronic kidney disease plan: Plan: Monitor H&H and for overt GI bleed Continue GI prophylaxis On Effient On Plaquenil diet as tolerated May benefit from a push enteroscopy and colonoscopy when optimal, will continue to follow closely. Thank you for this consult for allowing us to participate in your patient's care , we'll make further recommendations based on clinical course. Seen and discussed with Dr. Rodriguez. <Michael Rodriguez V - Last Filed: 03/16/17 23:40> Meds - Medications Medications: Current Medications Amlodipine Besylate (Norvasc) 5 mg PO DAILY [facility] Last Admin: 03/16/17 10:07 Dose: 5 mg Atorvastatin Calcium (Lipitor) 40 mg PO DAILY [facility] Last Admin: 03/16/17 10:07 Dose: 40 mg Fluoxetine HCl (Prozac) 20 mg PO DAILY [facility] Last Admin: 03/16/17 10:07 Dose: 20 mg Hydrochlorothiazide (Hydrodiuril) 25 mg PO DAILY [facility] Last Admin: 03/16/17 10:07 Dose: 25 mg Hydroxychloroquine Sulfate (Plaquenil) 400 mg PO DAILY [facility] Last Admin: 03/16/17 10:08 Dose: 400 mg Levothyroxine Sodium (Synthroid) 112 mcg PO ACB [facility] Last Admin: 03/16/17 07:56 Dose: 112 mcg Levothyroxine Sodium (Synthroid) 25 mcg PO ACB [facility] Last Admin: 03/16/17 07:56 Dose: 25 mcg Losartan Potassium (Cozaar) 50 mg PO DAILY [facility] Last Admin: 03/16/17 10:08 Dose: 50 mg Non-Formulary Medication (Doxepin Hcl [Doxepin Hcl]) [address] [facility] Last Admin: 03/16/17 22:52 Dose: Not Given Pantoprazole Sodium (Protonix Ec Tab) 40 mg PO ACB [facility] Last Admin: 03/16/17 07:56 Dose: 40 mg Prasugrel (Effient) 10 mg PO DAILY [facility] Last Admin: 03/16/17 10:07 Dose: 10 mg Tizanidine HCl (Zanaflex) 4 mg PO HS [facility] Last Admin: 03/16/17 22:52 Dose: Not Given Tramadol HCl (Ultram) 50 mg PO TID [facility] Last Admin: 03/16/17 17:21 Dose: Not Given Results - Vital Signs Recent Vital Signs: Last Vital Signs Temp 98.6 F 03/16/17 17:07 Pulse 64 03/16/17 22:00 Resp 20 03/16/17 17:07 BP 119/82 03/16/17 17:07 Pulse Ox 96 03/16/17 06:25 - Labs Result Diagrams: 03/16/17 06:15 03/16/17 06:15 Attending/Attestation - Attestation I have personally seen and examined this patient.: Yes I have fully participated in the care of the patient.: Yes I have reviewed all pertinent clinical information: Yes Notes (Text): p
--- NOTE | 2017-03-16 14:03 | US ---
HISTORY: Leg pain and swelling. Evaluate for DVT PHYSICIAN(S): Reese King MD. TECHNIQUE: Duplex sonography and color-flow Doppler with graded compression were used to evaluate the deep venous systems of both lower extremities. FINDINGS: The visualized deep venous systems of both lower extremities are sonographically normal and compressible. Normal wave forms and augmentation are seen. There is no sonographic evidence for deep venous thrombosis in the visualized segments of both lower extremities. IMPRESSION: No sonographic evidence for deep venous thrombosis in the visualized segments of both lower extremities.
--- NOTE | 2017-03-16 20:30 | CP.PCM.PN ---
Subjective - Date & Time of Evaluation Date of Evaluation: 03/16/17 Time of Evaluation: 08:35 - Subjective Subjective: Pt s/e bedside. Pt states she feels much better than she did in the office. Pt was given two units of blood. No longer fatigued. 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 Raises concern for possible infectious etiologies. Of note, all three cell lines on labs are either low or low-normal - further workup has been done. Objective - Vital Signs/Intake and Output Vital Signs (last 24 hours): Temp Pulse Resp BP Pulse Ox 98.6 F 81 20 119/82 96 03/16/17 17:07 03/16/17 17:49 03/16/17 17:07 03/16/17 17:07 03/16/17 06:25 - Medications Medications: Current Medications Amlodipine Besylate (Norvasc) 5 mg PO DAILY [facility] Last Admin: 03/16/17 10:07 Dose: 5 mg Atorvastatin Calcium (Lipitor) 40 mg PO DAILY [facility] Last Admin: 03/16/17 10:07 Dose: 40 mg Fluoxetine HCl (Prozac) 20 mg PO DAILY [facility] Last Admin: 03/16/17 10:07 Dose: 20 mg Hydrochlorothiazide (Hydrodiuril) 25 mg PO DAILY [facility] Last Admin: 03/16/17 10:07 Dose: 25 mg Hydroxychloroquine Sulfate (Plaquenil) 400 mg PO DAILY [facility] Last Admin: 03/16/17 10:08 Dose: 400 mg Levothyroxine Sodium (Synthroid) 112 mcg PO ACB [facility] Last Admin: 03/16/17 07:56 Dose: 112 mcg Levothyroxine Sodium (Synthroid) 25 mcg PO ACB [facility] Last Admin: 03/16/17 07:56 Dose: 25 mcg Losartan Potassium (Cozaar) 50 mg PO DAILY [facility] Last Admin: 03/16/17 10:08 Dose: 50 mg Non-Formulary Medication (Doxepin Hcl [Doxepin Hcl]) 10 mg PO HS [facility] Last Admin: 03/16/17 00:22 Dose: Not Given Pantoprazole Sodium (Protonix Ec Tab) 40 mg PO ACB [facility] Last Admin: 03/16/17 07:56 Dose: 40 mg Prasugrel (Effient) 10 mg PO DAILY [facility] Last Admin: 03/16/17 10:07 Dose: 10 mg Tizanidine HCl (Zanaflex) 4 mg PO HS [facility] Last Admin: 03/16/17 00:13 Dose: Not Given Tramadol HCl (Ultram) 50 mg PO TID [facility] Last Admin: 03/16/17 17:21 Dose: Not Given - Labs Labs: PT 11.1 Seconds (9.9-11.8) 03/15/17 16:00 INR 1.03 (0.93-1.08) 03/15/17 16:00 APTT 23.2 Seconds (23.7-30.8) L 03/15/17 16:00 - Additional Findings Additional findings: Phys Exam: VS as below Constitutional: a&o x 4, nad Head and Neck: neck supple, no jvd, trachea midline, carotid midline, no cervical/head mass Eyes: herrera, nonicteric sclera, eom intact ENT: auditory acuity grossly intact, throat not congested, no nasal deformity Cardio: +pansystolic murmur; rrr, no r/g, no carotid bruit, nml s1, s2 Pulm: no accessory muscle use, equal nml breath sounds bilaterally, ctab Abd: s/nt/nd, nbs x 4 q, no palpable masses Derm: no rashes, no ulcers, no lesions Extr: +Slight edema b/l; White lesions at finger tips. no cyanosis, no calf tenderness, no varicosities Neuro: cn II-XII grossly intact, ue and le 5/5 muscle strength bilaterally, no los ue, le bilaterally and core Assessment and Plan - Assessment and Plan (Free Text) Assessment: Assessment: 62 year old female with a past medical history of HTN, SLE, Scleroderma, Phan 's Esophagus, CKD, CAD, and NSTEMI, who presented to the ED after being having had a blood pressure of 180/110 in the office of her PMD and being told she needed to be seen immediately. Found later to have guauic positive stool. Plan: Plan: 1. Malignant Hypertension -patient given clonidine 0.2mg and nitro in ED -Blood pressures have been WNL since admission to floors -cont home norvasc and HCTZ -telemetry monitoring 2. Symptomatic Anemia History: -SOB on exertion -H/H found to be 7.0/23 -patient given 2un of pRBC's Current: -iron studies, folate, B12 and peripheral smear pending 3. Acute GI bleed History: -found to have positive guauic stool -recent endoscopy showed barretts esophagus with no ulcers; reports most recent endoscopy 2-3 years ago and was normal Current: -GI consulted, Jennifer: Push enteroscopy and colonoscopy when tolerated -will consider stopping effient if H/H continues to decline 4. Elevated D-Dimer History: -impaired renal function so CT angio not indicated Current: -bilateral LE duplex: negative for DVT -V/Q scan: low p(x) V/Q for PE 5. History of SLE -cont home hydroxychloroquine 6. GI/DVT Prophylaxis -Protonix/scd's Raymond Amanda D.O., PGY-1 Patient seen and case discussed with attending, Dr. Mckinnon.
[2017-03-17 07:35] LABS: BASO # 0.01 K/mm3 (0.0-2.0); BASO % 0.2 % (0.0-3.0); EOS # 0.1 (0.0-0.7); EOS % 1.8 % (1.5-5.0); GRAN # 3.22 (1.4-6.5); GRAN % 62.8 % (50.0-68.0); LYMPH # 1.1 (1.2-3.4); LYMPH % 21.2 % (22.0-35.0); MEAN CELL VOLUME 82.6 fL (80.0-105.0); MEAN CORPUSCULAR HGB CONC 31.4 g/dl (31.0-37.0); MEAN PLATELET VOLUME 9.9 fl (7.0-11.0); MONO # 0.7 (0.1-0.6); PLATELET COUNT 183 10^3/uL (120.0-450.0); RBC 3.85 10^6/uL (3.5-6.1); RED CELL DISTRIBUTION WIDTH 15.5 % (11.5-14.5); WHITE BLOOD COUNT 5.1 10^3/ul (4.5-11.0)
[2017-03-17 07:51] LABS: ALB/GLOB RATIO 1.3 (1.1-1.8); ALBUMIN 4.1 g/dL (3.0-4.8)
[2017-03-17] MEDS: Pantoprazole 40 mg EC Tab PO SCH (08:22)
[2017-03-17] MEDS: Levothyroxine 25 MCG TAB PO SCH (08:22)
[2017-03-17] MEDS: Levothyroxine 112 MCG TAB PO SCH (08:23)
[2017-03-17] MEDS ORDERED: Potassium Chloride 20 mEq ER Tab PO STA (08:57)
--- NOTE | 2017-03-17 09:50 | CP.PCM.PN ---
Subjective - Date & Time of Evaluation Date of Evaluation: 03/17/17 Time of Evaluation: 09:41 - Subjective Subjective: Medicine Progress Note Patient seen and examined at bedside. There were no acute overnight events. Today she reports having a headache that is mild. She denies CP, SOB, n/v/d, numbness, tingling, fever, chills, dysuria or hematuria. Objective - Vital Signs/Intake and Output Vital Signs (last 24 hours): Temp Pulse Resp BP Pulse Ox 99 F 58 L 20 139/79 96 03/17/17 06:00 03/17/17 06:00 03/17/17 06:00 03/17/17 06:00 03/17/17 06:00 Intake and Output: 03/17/17 03/17/17 06:59 18:59 Intake Total 420 Output Total 72307 Balance -[id number] - Medications Medications: Current Medications Acetaminophen (Tylenol 325mg Tab) 650 mg PO Q6H PRN PRN Reason: Headache Amlodipine Besylate (Norvasc) 5 mg PO DAILY [facility] Last Admin: 03/16/17 10:07 Dose: 5 mg Atorvastatin Calcium (Lipitor) 40 mg PO DAILY [facility] Last Admin: 03/16/17 10:07 Dose: 40 mg Fluoxetine HCl (Prozac) 20 mg PO DAILY [facility] Last Admin: 03/16/17 10:07 Dose: 20 mg Hydrochlorothiazide (Hydrodiuril) 25 mg PO DAILY [facility] Last Admin: 03/16/17 10:07 Dose: 25 mg Hydroxychloroquine Sulfate (Plaquenil) 400 mg PO DAILY [facility] Last Admin: 03/16/17 10:08 Dose: 400 mg Levothyroxine Sodium (Synthroid) 112 mcg PO ACB [facility] Last Admin: 03/17/17 08:23 Dose: 112 mcg Levothyroxine Sodium (Synthroid) 25 mcg PO ACB [facility] Last Admin: 03/17/17 08:22 Dose: 25 mcg Losartan Potassium (Cozaar) 50 mg PO DAILY [facility] Last Admin: 03/16/17 10:08 Dose: 50 mg Non-Formulary Medication (Doxepin Hcl [Doxepin Hcl]) 10 mg PO HS [facility] Last Admin: 03/16/17 22:52 Dose: Not Given Pantoprazole Sodium (Protonix Ec Tab) 40 mg PO ACB [facility] Last Admin: 03/17/17 08:22 Dose: 40 mg Prasugrel (Effient) 10 mg PO DAILY [facility] Last Admin: 03/16/17 10:07 Dose: 10 mg Tizanidine HCl (Zanaflex) 4 mg PO HS [facility] Last Admin: 03/16/17 22:52 Dose: Not Given Tramadol HCl (Ultram) 50 mg PO TID [facility] Last Admin: 03/16/17 17:21 Dose: Not Given - Labs Labs: 03/17/17 07:18 03/17/17 07:18 PT 11.1 Seconds (9.9-11.8) 03/15/17 16:00 INR 1.03 (0.93-1.08) 03/15/17 16:00 APTT 23.2 Seconds (23.7-30.8) L 03/15/17 16:00 - Constitutional Appears: No Acute Distress - Head Exam Head Exam: ATRAUMATIC, NORMAL INSPECTION, NORMOCEPHALIC - Eye Exam Eye Exam: EOMI, Normal appearance, PERRL Pupil Exam: NORMAL ACCOMODATION, PERRL - ENT Exam ENT Exam: Mucous Membranes Moist - Neck Exam Neck Exam: Full ROM - Respiratory Exam Respiratory Exam: Clear to Ausculation Bilateral, NORMAL BREATHING PATTERN. absent: Rales, Rhonchi, Wheezes - Cardiovascular Exam Cardiovascular Exam: REGULAR RHYTHM, +S1, +S2. absent: Gallop, Rubs, Murmur - GI/Abdominal Exam GI & Abdominal Exam: Soft, Normal Bowel Sounds. absent: Rigid, Tenderness, Mass , Rebound - Extremities Exam Extremities Exam: Full ROM, Normal Inspection. absent: Calf Tenderness, Pedal Edema - Neurological Exam Neurological Exam: Alert, Awake, CN II-XII Intact, Oriented x3 - Psychiatric Exam Psychiatric exam: Normal Affect, Normal Mood - Skin Skin Exam: Dry, Intact, Normal Color, Warm Assessment and Plan - Assessment and Plan (Free Text) Assessment: This is a 62Y F with PMH HTN, SLE, Scleroderma, CKD, CAD, NSTEMI, and Phan' s esophagus who was admitted for hypertensive emergency and anemia with positive guaic in stool. She was transfused 2U PRBC yesterday. Today she is found to have DEANA. Plan: 1. Anemia - secondary to GI bleed - Stool Guaic + - s/p 2U PRBC- Hgb stable at this time - GI consulted- recs appreciated - EGD on December 2016 showed barretts esophagus without ulcerations - As per GI, pt will need outpatient colonoscopy and EGD in a few weeks - Iron studies showed: Iron: Low, TIBC: Normal, Ferritin: Low - Vitamin B12 normal, Folate: Normal - Will view peripheral smear - Continue Effient and ASA - Heme consulted 2. DEANA - possibly secondary to fluid overload s/p transfusion - Will obtain FeNa and urine studies 3. Hypertensive urgency - resolved - BP stable at this time - Continue Cozaar, Norvasc and HCTZ 4. Elevated D-Dimer - V/Q scan negative for PE - Venous doppler negative for DVT - Continue to monitor for SOB 5. HLD - Continue Lipitor 6. Hypothyroidism - Continue Synthroid 7. Hx of SLE - Continue Plaquenil - Continue Tramadol and Zanaflex for pain 8. Hx of depression - Continue Prozac and Doxepin GI ppx: Protonix DVT ppx: SCDs- patient also ambulating Dispo: Patient will be discharged home once medically cleared and follow up with Dr. Mckinnon (PMD), Dr. Johnson (Nephro) Case seen, discussed and reviewed with attending Makenzie Smith PGY2
[2017-03-17 12:41] LABS: CREATININE,RANDOM URINE 72 mg/dL
--- NOTE | 2017-03-17 12:53 | CP.PCM.CON ---
History of Present Illness - History of Present Illness History of Present Illness: 62 year old female with PMH of HTN, Systemic Lupus Erythematosus, Scleroderma, Phan's esophagus, chronic renal failure, CAD was brought in to initially for hypertensive urgency and is being treated for this medically. She was also found to have anemia with positive stool for guaiac. The patient is concerned that recently she was cleaning a relative's home and encountered rat feces during the clean-up. The patient states that she was wearing doubles gloves and a mask while cleaning. She denies headache or dizziness, no fever or chills, no nausea or vomiting, no chest pain , no SOB, no blurring of vision, no hematuria, no dysuria, no vaginal bleeding, no yellowing of skin or eyes. She also denies melena or hematochezia. Infectious diseases consult is requested to further evaluate and manage. Review of Systems - Review of Systems All systems: reviewed and no additional remarkable complaints except (as per HPI ) Past Patient History - Infectious Disease Hx of Infectious Diseases: None - Tetanus Immunizations Tetanus Immunization: Unknown - Past Social History Smoking Status: Never Smoked - CARDIAC Hx Pacemaker: No - PULMONARY Hx Respiratory Disorders: Yes - NEUROLOGICAL Hx Paralysis: No - HEENT Hx HEENT Problems: Yes (eyeglasses) - RENAL Hx Kidney Stones: Yes - ENDOCRINE/METABOLIC Hx Hyperthyroidism: Yes Hx Hypothyroidism: Yes - HEMATOLOGICAL/ONCOLOGICAL Hx Blood Transfusions: Yes (2013) Hx Blood Transfusion Reaction: No - INTEGUMENTARY Hx Dermatological Problems: No - MUSCULOSKELETAL/RHEUMATOLOGICAL Hx Musculoskeletal Disorders: Yes (SCLERODERMA - LUPUS) - GASTROINTESTINAL Hx Gastroesophageal Reflux: Yes - GENITOURINARY/GYNECOLOGICAL Other/Comment: c-sections, breast self examination - PSYCHIATRIC Hx Emotional Abuse: No Hx Physical Abuse: No Hx Substance Use: No - SURGICAL HISTORY Hx Cardiac Catheterization: Yes - ANESTHESIA Hx Anesthesia Reactions: No Hx Malignant Hyperthermia: No Meds Allergies/Adverse Reactions: Allergies Allergy/AdvReac Type Severity Reaction Status Date / Time chicken derived Allergy Severe ANAPHYLAXIS Verified 01/02/17 13:28 - Medications Medications: Current Medications Amlodipine Besylate (Norvasc) 5 mg PO DAILY [facility] Last Admin: 03/16/17 10:07 Dose: 5 mg Atorvastatin Calcium (Lipitor) 40 mg PO DAILY [facility] Last Admin: 03/16/17 10:07 Dose: 40 mg Fluoxetine HCl (Prozac) 20 mg PO DAILY [facility] Last Admin: 03/16/17 10:07 Dose: 20 mg Hydrochlorothiazide (Hydrodiuril) 25 mg PO DAILY [facility] Last Admin: 03/16/17 10:07 Dose: 25 mg Hydroxychloroquine Sulfate (Plaquenil) 400 mg PO DAILY [facility] Last Admin: 03/16/17 10:08 Dose: 400 mg Levothyroxine Sodium (Synthroid) 112 mcg PO ACB [facility] Last Admin: 03/16/17 07:56 Dose: 112 mcg Levothyroxine Sodium (Synthroid) 25 mcg PO ACB [facility] Last Admin: 03/16/17 07:56 Dose: 25 mcg Losartan Potassium (Cozaar) 50 mg PO DAILY [facility] Last Admin: 03/16/17 10:08 Dose: 50 mg Non-Formulary Medication (Doxepin Hcl [Doxepin Hcl]) 10 mg PO [facility] Last Admin: 03/16/17 00:22 Dose: Not Given Pantoprazole Sodium (Protonix Ec Tab) 40 mg PO ACB [facility] Last Admin: 03/16/17 07:56 Dose: 40 mg Prasugrel (Effient) 10 mg PO DAILY [facility] Last Admin: 03/16/17 10:07 Dose: 10 mg Tizanidine HCl (Zanaflex) 4 mg PO [facility] Last Admin: 03/16/17 00:13 Dose: Not Given Tramadol HCl (Ultram) 50 mg PO TID [facility] Last Admin: 03/16/17 13:07 Dose: Not Given Physical Exam - Constitutional Appears: Non-toxic, No Acute Distress - Head Exam Head Exam: NORMAL INSPECTION - ENT Exam ENT Exam: Mucous Membranes Moist - Neck Exam Neck exam: Negative for: Meningismus - Respiratory Exam Respiratory Exam: Decreased Breath Sounds. absent: Rales - Cardiovascular Exam Cardiovascular Exam: +S1, +S2 - GI/Abdominal Exam GI & Abdominal Exam: Soft. absent: Tenderness Results - Vital Signs Recent Vital Signs: Last Vital Signs Temp 97.5 F L 03/16/17 06:49 Pulse 68 03/16/17 10:08 Resp 20 03/16/17 06:49 BP 160/76 H 03/16/17 10:08 Pulse Ox 96 03/16/17 06:25 - Labs Result Diagrams: 03/17/17 07:18 03/17/17 07:18 Assessment & Plan - Assessment and Plan (Free Text) Plan: Assessment Anemia with positive stool guaiac, consider GI bleeding as cause of anemia - no evidence of hemolytic anemia as cause and no evidence of sepsis currently (LDH normal, bilirubin normal, retic count normal, transaminases normal); also no evidence of infection related to exposure to rats or rat feces (no signs of hemoyltic anemia, no signs of hepatitis, no hyperbilirubinemia) HTN Systemic Lupus Erythematosus Scleroderma Phan's esophagus chronic renal failure CAD Plan Will monitor off antibiotics since she is at risk for nosocomial infections follow up GI recommendations, and may need Hematology evaluation for anemia if GI work up is negative
[2017-03-17] MEDS: DOXEPIN HCL 10 MG PO SCH (21:22)
[2017-03-18 07:51] LABS: ALB/GLOB RATIO 1.2 (1.1-1.8); ALBUMIN 3.8 g/dL (3.0-4.8); CALCIUM 9.1 mg/dL (8.4-10.5)
[2017-03-18 07:55] LABS: BASO # 0.01 K/mm3 (0.0-2.0); BASO % 0.2 % (0.0-3.0); EOS # 0.1 (0.0-0.7); EOS % 2.5 % (1.5-5.0); GRAN # 2.53 (1.4-6.5); GRAN % 49.7 % (50.0-68.0); LYMPH # 1.7 (1.2-3.4); LYMPH % 32.7 % (22.0-35.0); MEAN CELL VOLUME 83.1 fL (80.0-105.0); MEAN CORPUSCULAR HEMOGLOBIN 26.8 pg (25.0-35.0); MEAN CORPUSCULAR HGB CONC 32.3 g/dl (31.0-37.0); MEAN PLATELET VOLUME 9.8 fl (7.0-11.0); MONO # 0.8 (0.1-0.6); MONO % 14.9 % (1.0-6.0); PLATELET COUNT 162 10^3/uL (120.0-450.0); RBC 3.73 10^6/uL (3.5-6.1); RED CELL DISTRIBUTION WIDTH 15.4 % (11.5-14.5); WHITE BLOOD COUNT 5.1 10^3/ul (4.5-11.0)
--- NOTE | 2017-03-18 08:53 | CP.PCM.PN ---
Subjective - Date & Time of Evaluation Date of Evaluation: 03/18/17 Time of Evaluation: 08:43 - Subjective Subjective: Medicine Progress Note Patient seen and examined at bedside. As per nursing, there were no acute overnight events. Ms. Duque says she feels well today. She denies CP, SOB, n/v/ d, numbness/tingling, fever or chills, dysuria or hematuria. Objective - Vital Signs/Intake and Output Vital Signs (last 24 hours): Temp Pulse Resp BP Pulse Ox 97.9 F 60 18 123/70 96 03/18/17 05:53 03/18/17 05:53 03/18/17 05:53 03/18/17 05:53 03/18/17 05:53 Intake and Output: 03/18/17 03/18/17 06:59 18:59 Intake Total 0 Output Total 0 Balance 0 - Medications Medications: Current Medications Acetaminophen (Tylenol 325mg Tab) 650 mg PO Q6H PRN PRN Reason: Headache Last Admin: 03/17/17 14:48 Dose: 650 mg Amlodipine Besylate (Norvasc) 5 mg PO DAILY [facility] Last Admin: 03/17/17 10:11 Dose: 5 mg Aspirin (Aspirin Chewable) 81 mg PO DAILY [facility] Atorvastatin Calcium (Lipitor) 40 mg PO DAILY [facility] Last Admin: 03/17/17 10:11 Dose: 40 mg Fluoxetine HCl (Prozac) 20 mg PO DAILY [facility] Last Admin: 03/17/17 10:11 Dose: 20 mg Hydrochlorothiazide (Hydrodiuril) 25 mg PO DAILY [facility] Last Admin: 03/17/17 10:11 Dose: 25 mg Hydroxychloroquine Sulfate (Plaquenil) 400 mg PO DAILY [facility] Last Admin: 03/17/17 10:19 Dose: 400 mg Levothyroxine Sodium (Synthroid) 112 mcg PO ACB [facility] Last Admin: 03/17/17 08:23 Dose: 112 mcg Levothyroxine Sodium (Synthroid) 25 mcg PO ACB [facility] Last Admin: 03/17/17 08:22 Dose: 25 mcg Losartan Potassium (Cozaar) 50 mg PO DAILY [facility] Last Admin: 03/17/17 10:11 Dose: 50 mg Non-Formulary Medication (Doxepin Hcl [Doxepin Hcl]) 10 mg PO HS [facility] Last Admin: 03/17/17 21:22 Dose: Not Given Pantoprazole Sodium (Protonix Ec Tab) 40 mg PO ACB [facility] Last Admin: 03/17/17 08:22 Dose: 40 mg Prasugrel (Effient) 10 mg PO DAILY [facility] Last Admin: 03/17/17 10:11 Dose: 10 mg Tizanidine HCl (Zanaflex) 4 mg PO HS [facility] Last Admin: 03/17/17 21:22 Dose: 4 mg Tramadol HCl (Ultram) 50 mg PO TID [facility] Last Admin: 03/17/17 17:41 Dose: 50 mg - Labs Labs: 03/18/17 07:34 03/18/17 07:34 PT 11.1 Seconds (9.9-11.8) 03/15/17 16:00 INR 1.03 (0.93-1.08) 03/15/17 16:00 APTT 23.2 Seconds (23.7-30.8) L 03/15/17 16:00 - Constitutional Appears: No Acute Distress - Head Exam Head Exam: ATRAUMATIC, NORMAL INSPECTION, NORMOCEPHALIC - Eye Exam Eye Exam: Normal appearance Pupil Exam: NORMAL ACCOMODATION - ENT Exam ENT Exam: Mucous Membranes Moist - Respiratory Exam Respiratory Exam: Clear to Ausculation Bilateral, NORMAL BREATHING PATTERN. absent: Rales, Wheezes, Stridor - Cardiovascular Exam Cardiovascular Exam: REGULAR RHYTHM, +S1, +S2. absent: Gallop, Rubs, Murmur - GI/Abdominal Exam GI & Abdominal Exam: Soft, Normal Bowel Sounds. absent: Rigid, Tenderness, Mass , Rebound - Extremities Exam Extremities Exam: Normal Inspection. absent: Calf Tenderness, Pedal Edema - Neurological Exam Neurological Exam: Alert, Awake, CN II-XII Intact, Oriented x3 - Psychiatric Exam Psychiatric exam: Normal Affect, Normal Mood - Skin Skin Exam: Dry, Normal Color, Warm Assessment and Plan - Assessment and Plan (Free Text) Assessment: This is a 62Y F with PMH HTN, SLE, Scleroderma, CKD, CAD, NSTEMI, and Phan' s esophagus who was admitted for hypertensive emergency and anemia with positive guaic in stool. Anemia is now stable, but patient now has DEANA. Plan: 1. Anemia- stable - secondary to GI bleed - s/p 2U PRBC - EGD on December 2016 showed barretts esophagus without ulcerations - As per GI, pt will need outpatient colonoscopy and EGD in a few weeks - Pt receives iron infusion as outpatient with Dr. Catalan - Continue Effient and ASA - Heme consulted 2. DEANA - possibly secondary to fluid overload s/p transfusion - Cr: 1.7 (increased from 1.6) - FeNa: 0.5%- Pre-renal etiology - Nephro consulted - Will start NS@75 3. Hypertensive urgency - resolved - BP stable at this time - Continue Cozaar, Norvasc and HCTZ 4. HLD - Continue Lipitor 5. Hypothyroidism - Continue Synthroid 6. Hx of SLE - Continue Plaquenil, Tramadol and Zanaflex for pain 7. Hx of depression - Prozac and Doxepin GI ppx: Protonix DVT ppx: SCDs Dispo: D/C home once medically cleared and follow up with Dr. Mckinnon (PMD), Dr. Johnson (Nephro) Case seen, discussed and reviewed with attending Makenzie Smith PGY2
[2017-03-18] MEDS: Pantoprazole 40 mg EC Tab PO SCH (08:57)
[2017-03-18] MEDS: Levothyroxine 112 MCG TAB PO SCH (08:57)
[2017-03-18] MEDS: Levothyroxine 25 MCG TAB PO SCH (08:57)
[2017-03-18] MEDS ORDERED: Apap-Butalbital-Caffeine 325-50-40mg Tab PO PRN (10:31)
--- NOTE | 2017-03-18 12:21 | CP.PCM.CON ---
Past Patient History - Infectious Disease Hx of Infectious Diseases: None - Tetanus Immunizations Tetanus Immunization: Unknown - Past Social History Smoking Status: Never Smoked - CARDIAC Hx Pacemaker: No - PULMONARY Hx Respiratory Disorders: Yes - NEUROLOGICAL Hx Paralysis: No - HEENT Hx HEENT Problems: Yes (eyeglasses) - RENAL Hx Kidney Stones: Yes - ENDOCRINE/METABOLIC Hx Hyperthyroidism: Yes Hx Hypothyroidism: Yes - HEMATOLOGICAL/ONCOLOGICAL Hx Blood Transfusions: Yes (2013) Hx Blood Transfusion Reaction: No - INTEGUMENTARY Hx Dermatological Problems: No - MUSCULOSKELETAL/RHEUMATOLOGICAL Hx Musculoskeletal Disorders: Yes (SCLERODERMA - LUPUS) - GASTROINTESTINAL Hx Gastroesophageal Reflux: Yes - GENITOURINARY/GYNECOLOGICAL Other/Comment: c-sections, breast self examination - PSYCHIATRIC Hx Emotional Abuse: No Hx Physical Abuse: No Hx Substance Use: No - SURGICAL HISTORY Hx Cardiac Catheterization: Yes - ANESTHESIA Hx Anesthesia Reactions: No Hx Malignant Hyperthermia: No Meds Allergies/Adverse Reactions: Allergies Allergy/AdvReac Type Severity Reaction Status Date / Time chicken derived Allergy Severe ANAPHYLAXIS Verified 01/02/17 13:28 - Medications Medications: Current Medications Acetaminophen (Tylenol 325mg Tab) 650 mg PO Q6H PRN PRN Reason: Headache Last Admin: 03/18/17 08:57 Dose: 650 mg Acetaminophen/Butalbital/Caffeine (Fioricet) 1 tab PO Q4H PRN PRN Reason: Headache Amlodipine Besylate (Norvasc) 5 mg PO DAILY [facility] Last Admin: 03/18/17 10:21 Dose: 5 mg Aspirin (Aspirin Chewable) 81 mg PO DAILY [facility] Last Admin: 03/18/17 10:22 Dose: 81 mg Atorvastatin Calcium (Lipitor) 40 mg PO DAILY [facility] Last Admin: 03/18/17 10:21 Dose: 40 mg Fluoxetine HCl (Prozac) 20 mg PO DAILY [facility] Last Admin: 03/18/17 10:21 Dose: 20 mg Hydrochlorothiazide (Hydrodiuril) 25 mg PO DAILY [facility] Last Admin: 03/18/17 10:22 Dose: 25 mg Hydroxychloroquine Sulfate (Plaquenil) 400 mg PO DAILY [facility] Last Admin: 03/18/17 10:22 Dose: 400 mg Sodium Chloride (Sodium Chloride 0.9%) 1,000 mls @ 75 mls/hr IV .[id number] [facility] Levothyroxine Sodium (Synthroid) 112 mcg PO ACB [facility] Last Admin: 03/18/17 08:57 Dose: 112 mcg Levothyroxine Sodium (Synthroid) 25 mcg PO ACB [facility] Last Admin: 03/18/17 08:57 Dose: 25 mcg Losartan Potassium (Cozaar) 50 mg PO DAILY [facility] Last Admin: 03/18/17 10:22 Dose: 50 mg Non-Formulary Medication (Doxepin Hcl [Doxepin Hcl]) 10 mg PO HS [facility] Last Admin: 03/17/17 21:22 Dose: Not Given Pantoprazole Sodium (Protonix Ec Tab) 40 mg PO ACB [facility] Last Admin: 03/18/17 08:57 Dose: 40 mg Prasugrel (Effient) 10 mg PO DAILY [facility] Last Admin: 03/18/17 10:21 Dose: 10 mg Tizanidine HCl (Zanaflex) 4 mg PO HS [facility] Last Admin: 03/17/17 21:22 Dose: 4 mg Tramadol HCl (Ultram) 50 mg PO TID [facility] Last Admin: 03/18/17 11:50 Dose: 50 mg Results - Vital Signs Recent Vital Signs: Last Vital Signs Temp 98.1 F 03/18/17 11:42 Pulse 61 03/18/17 11:42 Resp 20 03/18/17 11:42 BP 150/84 03/18/17 11:42 Pulse Ox 96 03/18/17 05:53 - Labs Result Diagrams: 03/18/17 07:34 03/18/17 07:34 Labs: Laboratory Results - last 24 hr 03/17/17 03/17/17 03/18/17 11:59 11:59 07:34 WBC 5.1 RBC 3.73 Hgb 10.0 L Hct 31.0 L MCV 83.1 MCH 26.8 MCHC 32.3 RDW 15.4 H Plt Count 162 MPV 9.8 Gran % 49.7 L Lymph % (Auto) 32.7 [place] % (Auto) 14.9 H Eos % (Auto) 2.5 Baso % (Auto) 0.2 Gran # 2.53 Lymph # 1.7 [place] # 0.8 H Eos # 0.1 Baso # 0.01 Sodium Potassium Chloride Carbon Dioxide Anion Gap BUN Creatinine Est GFR ( Amer) Est GFR (Non-Af Amer) Random Glucose Calcium Total Bilirubin AST ALT Alkaline Phosphatase Total Protein Albumin Globulin Albumin/Globulin Ratio Ur Random Creatinine 72 Ur Random Sodium 31 Ur Random Urea Nitrogn 355 03/18/17 07:34 WBC RBC Hgb Hct MCV MCH MCHC RDW Plt Count MPV Gran % Lymph % (Auto) [place] % (Auto) Eos % (Auto) Baso % (Auto) Gran # Lymph # [place] # Eos # Baso # Sodium 133 Potassium 3.8 Chloride 93 L Carbon Dioxide 29 Anion Gap 15 BUN 27 H Creatinine 1.7 H Est GFR ( Amer) 37 Est GFR (Non-Af Amer) 31 Random Glucose 83 Calcium 9.1 Total Bilirubin 0.5 AST 22 ALT 23 Alkaline Phosphatase 60 Total Protein 6.9 Albumin 3.8 Globulin 3.1 Albumin/Globulin Ratio 1.2 Ur Random Creatinine Ur Random Sodium Ur Random Urea Nitrogn Assessment & Plan - Assessment and Plan (Free Text) Plan: htn/guillaume/ckd/scleroderma guillaume sec to rapid bp reduction leading to relative hypotension recommend maintaining higher bp around 140-150 SBP and slowly bring it down check renal usg, urinalysis, random urine protein/creatinine
[2017-03-18] MEDS: Sodium Chloride 0.9% 1,000 ML IV SCH (13:39)
--- NOTE | 2017-03-18 17:13 | CP.PCM.CON ---
History of Present Illness - History of Present Illness History of Present Illness: Hematology Consult Referred by Dr. Hayward for anemia HPI- Ms Duque is known to Dr. Catalan from outpatient. She is 62 y/o F with h/o HTN, SLE, Scleroderma, Phan's Esophagus, CKD, CAD, and NSTEMI, who presented to the ED with uncontrolled hypertension. She follows Dr. Catalan for iron def anemia, possible monoclonal gammopathy which is being monitored and is stable without any treatment. She also gets treatment with Reclast for osteoporosis, last dose was on 01/31/16. Her Hb was 7 on admission and she received 2 units PRBC after which Hb went up to 10. Stool guaiac was reported positive and she is planned for outpatient endoscopic work up. She otherwise feels better now, denies chest pain or shortness of breath. Denies bleeding. PMH: HTN, SLE, Scleroderma, Phan's Esophagus, CKD, CAD, and NSTEMI PSH: 7 stents placed in her heart, most recently in May Family History: Father -CVA Social History: Denies tobacco, alcohol or illicit drug use Allergies: chicken derived Review of Systems - Review of Systems All systems: reviewed and no additional remarkable complaints except Review of Systems: as in HPI Past Patient History - Infectious Disease Hx of Infectious Diseases: None - Tetanus Immunizations Tetanus Immunization: Unknown - Past Social History Smoking Status: Never Smoked - CARDIAC Hx Pacemaker: No - PULMONARY Hx Respiratory Disorders: Yes - NEUROLOGICAL Hx Paralysis: No - HEENT Hx HEENT Problems: Yes (eyeglasses) - RENAL Hx Kidney Stones: Yes - ENDOCRINE/METABOLIC Hx Hyperthyroidism: Yes Hx Hypothyroidism: Yes - HEMATOLOGICAL/ONCOLOGICAL Hx Blood Transfusions: Yes (2013) Hx Blood Transfusion Reaction: No - INTEGUMENTARY Hx Dermatological Problems: No - MUSCULOSKELETAL/RHEUMATOLOGICAL Hx Musculoskeletal Disorders: Yes (SCLERODERMA - LUPUS) - GASTROINTESTINAL Hx Gastroesophageal Reflux: Yes - GENITOURINARY/GYNECOLOGICAL Other/Comment: c-sections, breast self examination - PSYCHIATRIC Hx Emotional Abuse: No Hx Physical Abuse: No Hx Substance Use: No - SURGICAL HISTORY Hx Cardiac Catheterization: Yes - ANESTHESIA Hx Anesthesia Reactions: No Hx Malignant Hyperthermia: No Meds Allergies/Adverse Reactions: Allergies Allergy/AdvReac Type Severity Reaction Status Date / Time chicken derived Allergy Severe ANAPHYLAXIS Verified 01/02/17 13:28 - Medications Medications: Current Medications Acetaminophen (Tylenol 325mg Tab) 650 mg PO Q6H PRN PRN Reason: Headache Last Admin: 03/18/17 08:57 Dose: 650 mg Acetaminophen/Butalbital/Caffeine (Fioricet) 1 tab PO Q4H PRN PRN Reason: Headache Amlodipine Besylate (Norvasc) 5 mg PO DAILY [facility] Last Admin: 03/18/17 10:21 Dose: 5 mg Aspirin (Aspirin Chewable) 81 mg PO DAILY [facility] Last Admin: 03/18/17 10:22 Dose: 81 mg Atorvastatin Calcium (Lipitor) 40 mg PO DAILY [facility] Last Admin: 03/18/17 10:21 Dose: 40 mg Fluoxetine HCl (Prozac) 20 mg PO DAILY [facility] Last Admin: 03/18/17 10:21 Dose: 20 mg Hydrochlorothiazide (Hydrodiuril) 25 mg PO DAILY [facility] Last Admin: 03/18/17 10:22 Dose: 25 mg Hydroxychloroquine Sulfate (Plaquenil) 400 mg PO DAILY [facility] Last Admin: 03/18/17 10:22 Dose: 400 mg Sodium Chloride (Sodium Chloride 0.9%) 1,000 mls @ 75 mls/hr IV .[id number] [facility] Last Admin: 03/18/17 13:39 Dose: 75 mls/hr Iron Sucrose 100 mg/ Sodium (Chloride) 105 mls @ 210 mls/hr IVPB DAILY [facility] Stop: 03/22/17 14:46 Last Admin: 03/18/17 15:49 Dose: 210 mls/hr Levothyroxine Sodium (Synthroid) 112 mcg PO ACB [facility] Last Admin: 03/18/17 08:57 Dose: 112 mcg Levothyroxine Sodium (Synthroid) 25 mcg PO ACB [facility] Last Admin: 03/18/17 08:57 Dose: 25 mcg Losartan Potassium (Cozaar) 50 mg PO DAILY [facility] Last Admin: 03/18/17 10:22 Dose: 50 mg Non-Formulary Medication (Doxepin Hcl [Doxepin Hcl]) 10 mg PO HS [facility] Last Admin: 03/17/17 21:22 Dose: Not Given Pantoprazole Sodium (Protonix Ec Tab) 40 mg PO ACB [facility] Last Admin: 03/18/17 08:57 Dose: 40 mg Prasugrel (Effient) 10 mg PO DAILY [facility] Last Admin: 08/06/17 10:21 Dose: 10 mg Tizanidine HCl (Zanaflex) 4 mg PO HS [facility] Last Admin: 03/17/17 21:22 Dose: 4 mg Tramadol HCl (Ultram) 50 mg PO TID [facility] Last Admin: 03/18/17 17:03 Dose: 50 mg Physical Exam - Head Exam Head Exam: ATRAUMATIC, NORMAL INSPECTION - Eye Exam Eye Exam: EOMI, PERRL - ENT Exam ENT Exam: Mucous Membranes Moist - Neck Exam Neck exam: Negative for: Lymphadenopathy - Respiratory Exam Respiratory Exam: Clear to Auscultation Bilateral - Cardiovascular Exam Cardiovascular Exam: REGULAR RHYTHM - GI/Abdominal Exam GI & Abdominal Exam: Normal Bowel Sounds, Soft. absent: Tenderness - Extremities Exam Extremities exam: Negative for: pedal edema - Neurological Exam Neurological exam: Alert, Oriented x3 Results - Vital Signs Recent Vital Signs: Last Vital Signs Temp 98.3 F 03/18/17 16:55 Pulse 61 03/18/17 16:55 Resp 20 03/18/17 16:55 BP 142/78 03/18/17 16:55 Pulse Ox 98 03/18/17 16:55 - Labs Result Diagrams: 03/18/17 07:34 03/18/17 07:34 Labs: Laboratory Results - last 24 hr 03/18/17 03/18/17 07:34 07:34 WBC 5.1 RBC 3.73 Hgb 10.0 L Hct 31.0 L MCV 83.1 MCH 26.8 MCHC 32.3 RDW 15.4 H Plt Count 162 MPV 9.8 Gran % 49.7 L Lymph % (Auto) 32.7 Dickey % (Auto) 14.9 H Eos % (Auto) 2.5 Baso % (Auto) 0.2 Gran # 2.53 Lymph # 1.7 Dickey # 0.8 H Eos # 0.1 Baso # 0.01 Sodium 133 Potassium 3.8 Chloride 93 L Carbon Dioxide 29 Anion Gap 15 BUN 27 H Creatinine 1.7 H Est GFR ( Amer) 37 Est GFR (Non-Af Amer) 31 Random Glucose 83 Calcium 9.1 Total Bilirubin 0.5 AST 22 ALT 23 Alkaline Phosphatase 60 Total Protein 6.9 Albumin 3.8 Globulin 3.1 Albumin/Globulin Ratio 1.2 Assessment & Plan - Assessment and Plan (Free Text) Assessment: Iron def anemia due to GI bleed ?Monoclonal Gammopathy Anemia of chronic renal disease Will start her on IV Venofer while in hospital and she can continue that as outpatient. F/U with GI for endoscopic work up.Monitor for persistent bleeding. Review of last blood work from office did now show any evidence of monoclonal protein. Will continue to monitor. Other blood counts stable. F/U with Dr. Catalan after discharge Thank you for the consult Sergey Bass MD - Date & Time Date: 03/18/17 Time: 15:13
[2017-03-18] MEDS: DOXEPIN HCL 10 MG PO SCH (21:41)
[2017-03-19] MEDS: Sodium Chloride 0.9% 1,000 ML IV SCH ×2 (00:43→13:57)
[2017-03-19 04:59] LABS: ALB/GLOB RATIO 1.3 (1.1-1.8); ALBUMIN 3.5 g/dL (3.0-4.8); CALCIUM 8.8 mg/dL (8.4-10.5)
[2017-03-19 05:07] LABS: BASO # 0.02 K/mm3 (0.0-2.0); BASO % 0.6 % (0.0-3.0); EOS # 0.1 (0.0-0.7); EOS % 2.7 % (1.5-5.0); GRAN % 50.9 % (50.0-68.0); HEMOGLOBIN 9.2 gm/dL (12.0-16.0); LYMPH # 1.1 (1.2-3.4); LYMPH % 32.9 % (22.0-35.0); MEAN CELL VOLUME 83.8 fL (80.0-105.0); MEAN CORPUSCULAR HEMOGLOBIN 26.6 pg (25.0-35.0); MEAN CORPUSCULAR HGB CONC 31.7 g/dl (31.0-37.0); MEAN PLATELET VOLUME 9.7 fl (7.0-11.0); MONO # 0.4 (0.1-0.6); MONO % 12.9 % (1.0-6.0); PLATELET COUNT 157 10^3/uL (120.0-450.0); RBC 3.46 10^6/uL (3.5-6.1); RED CELL DISTRIBUTION WIDTH 15.7 % (11.5-14.5); WHITE BLOOD COUNT 3.3 10^3/ul (4.5-11.0)
[2017-03-19] MEDS: Levothyroxine 25 MCG TAB PO SCH (08:00)
[2017-03-19] MEDS: Levothyroxine 112 MCG TAB PO SCH (08:00)
[2017-03-19] MEDS: Pantoprazole 40 mg EC Tab PO SCH (08:00)
--- NOTE | 2017-03-19 13:22 | CP.PCM.CON ---
History of Present Illness - History of Present Illness History of Present Illness: Initial Nephrology Consultation: Assessment: Stable Acute Kidney Injury (N17.9) likely due to hemodyanmic changes as evident by BP high initially and now well controlled Hypertensive Chronic Kidney Disease (I12.9) Chronic Kidney Disease (N18.9) Stage 3 without proteinuria (R80.9) likely due to Hx of IgA nephropathy Iron def Anemia (D64.9), HTN (I12.9) hx of CAD, scleroderma, SLE Plan No acute need for renal replacement therapy at this time. normal UA hence doubt lupus nephritic as the cause. with relatively stable renal function and well controlled BP at this time, less likely sclerodermal renal crisis as the cause of her DEANA. hence favors hemodyanmic injury as the primary physiology Hypertension control with meds as ordered. Patient on ARB. will d/c diuretics at this time due to DEANA. continue with IVF while being planned for endoscopic eval of her iron def anemia. agree with IV iron by georgie. Monitor Input/Output, daily weights and renal function with basic metabolic panel Repeat urine analysis, spot protein/creatinine and albumin/creatinine ratio Dose meds/antibiotics for reduced GFR. Avoid fleets enema/magnesium based laxatives. Avoid nephrotoxins/NSAIDs/ iodinated contrast (unless needed emergently) Glycemic control Further work up/management as per primary team Thanks for allowing me to participate in care of your patient. Will follow patient with you. Please call if any Qs Dr Tyler Moreira Office: [phone] Chief Complaint; high BP Reason for consult: DEANA and HTN HPI: Pt is a 62 y/o F with hx of SLE, scleroderma, CAD, chronic dysphagia, greene esophagus, hypertension and biopsy proven IgA nephropathy in 2012 and CKD stage 3 with baseline cr 1.3-1.4 mg/dL, also Anemia, MGUS (f/up by heme) presented with complaints of uncontrolled severe HTN and also anemia. seen by GI and heme. getting IV iron and planned for endoscopic eval in view of FOB + renal consult for DEANA. cr 1.6-1.7 now. Denies chest pain, palpitation, shortness of breath, leg swelling Denies blood or bubbles in urine Denies OTC/herbal meds or NSAIDs No recent iodinated contrast exposure. ROS: Constitutional Symptoms: Denies fever. No chills. No Recent Weight Changes Eyes: denies change in vision, denies watery eyes, denies double vision Ears/Nose/Mouth/Throat: Denies Abnormal Taste. No Bad breath no Bad Taste. has chronic difficulty in swallowing. Cardiovascular: No chest pain. There is no shortness of breath. No palpitations. Pulmonary: No shortness of breath no cough. Gastrointestinal: denies abdominal pain No nausea. No vomiting. Denies change in bowel habits. Denies Bleeding Genitourinary: No Change in force of strain when urinating. No increase in urinary frequency. No pain while urinating. Denies blood in urine. Neurological: Denies headaches. No dizziness. Denies loss of balance. Denies weakness, denies tingling/numbness Dermatological: No Rash or Bruising or ulcers. Psychiatric: Denies Anxiety. No depression. Denies hallucinations. Rheumatological: No joint pain. Denies Joint swelling Endocrine: Denies tiredness/Fatigue denies Heat/Cold Intolerance. All other negative Physical Examination: General Appearance: Comfortable, in no acute respiratory distress, co-operative . Vitals reviewed and noted as below Head; Atraumatic, normocephalic ENT: no ulcers no thrush. Tongue is midline. Oropharynx: no rash or ulcers. EYES: Pupils are equal, round and reactive to light accommodation. Eye muscles and extraocular movement intact. Sclera is anicteric. Neck; supple no lymphadenopathy, no thyromegaly or bruit Lungs: Normal respiratory rate/effort. Breath sounds bilateral equal and clear Heart: Normal rate. s1s2 normal. No rub or gallop. Extremities: no edema. No varicose veins. minimal puffiness around ankle but no pitting edema. Neurological: Patient is alert, awake and oriented to person, place and time. No focal deficit. Strength bilateral appropriate and equal Skin: Warm and dry. Normal turgor. No rash. Palpitation: Normal elasticity for age Abdomen: Abdomen is soft. Bowel sounds +. There is no abdominal tenderness, no guarding/rigidity no organomegaly Psych: normal insight and normal affect/mood MSK: no joint tenderness or swelling. Digits and nails normal, no deformity : kidney or bladder not palpable Labs/imaging/EKG reviewed. Past medical history, past surgical history, family history, social history, allergy reviewed and noted as below Family hx: no hx of CKD. Rest non-contributory Work up: kidney BX 2013: IgA nephropathy [id number] UA: no blood or protein TSAT 4% Ferritin 6 Imaging: unremarkable for kidneys Past Patient History - Infectious Disease Hx of Infectious Diseases: None - Tetanus Immunizations Tetanus Immunization: Unknown - Past Social History Smoking Status: Never Smoked - CARDIAC Hx Pacemaker: No - PULMONARY Hx Respiratory Disorders: Yes - NEUROLOGICAL Hx Paralysis: No - HEENT Hx HEENT Problems: Yes (eyeglasses) - RENAL Hx Kidney Stones: Yes - ENDOCRINE/METABOLIC Hx Hyperthyroidism: Yes Hx Hypothyroidism: Yes - HEMATOLOGICAL/ONCOLOGICAL Hx Blood Transfusions: Yes (2013) Hx Blood Transfusion Reaction: No - INTEGUMENTARY Hx Dermatological Problems: No - MUSCULOSKELETAL/RHEUMATOLOGICAL Hx Musculoskeletal Disorders: Yes (SCLERODERMA - LUPUS) - GASTROINTESTINAL Hx Gastroesophageal Reflux: Yes - GENITOURINARY/GYNECOLOGICAL Other/Comment: c-sections, breast self examination - PSYCHIATRIC Hx Emotional Abuse: No Hx Physical Abuse: No Hx Substance Use: No - SURGICAL HISTORY Hx Cardiac Catheterization: Yes - ANESTHESIA Hx Anesthesia Reactions: No Hx Malignant Hyperthermia: No Meds Allergies/Adverse Reactions: Allergies Allergy/AdvReac Type Severity Reaction Status Date / Time chicken derived Allergy Severe ANAPHYLAXIS Verified 01/02/17 13:28 - Medications Medications: Current Medications Acetaminophen (Tylenol 325mg Tab) 650 mg PO Q6H PRN PRN Reason: Headache Last Admin: 03/18/17 08:57 Dose: 650 mg Acetaminophen/Butalbital/Caffeine (Fioricet) 1 tab PO Q4H PRN PRN Reason: Headache Amlodipine Besylate (Norvasc) 5 mg PO DAILY [facility] Last Admin: 03/19/17 09:09 Dose: 5 mg Aspirin (Aspirin Chewable) 81 mg PO DAILY [facility] Last Admin: 03/19/17 09:09 Dose: 81 mg Atorvastatin Calcium (Lipitor) 40 mg PO DAILY [facility] Last Admin: 03/19/17 09:06 Dose: 40 mg Fluoxetine HCl (Prozac) 20 mg PO DAILY [facility] Last Admin: 03/19/17 09:09 Dose: 20 mg Hydroxychloroquine Sulfate (Plaquenil) 400 mg PO DAILY [facility] Last Admin: 03/19/17 09:07 Dose: 400 mg Sodium Chloride (Sodium Chloride 0.9%) 1,000 mls @ 75 mls/hr IV .[id number] [facility] Last Admin: 03/19/17 00:43 Dose: 75 mls/hr Iron Sucrose 100 mg/ Sodium (Chloride) 105 mls @ 210 mls/hr IVPB DAILY [facility] Stop: 03/22/17 14:46 Last Admin: 03/19/17 09:09 Dose: 210 mls/hr Levothyroxine Sodium (Synthroid) 112 mcg PO ACB [facility] Last Admin: 03/19/17 08:00 Dose: 112 mcg Levothyroxine Sodium (Synthroid) 25 mcg PO ACB [facility] Last Admin: 03/19/17 08:00 Dose: 25 mcg Losartan Potassium (Cozaar) 50 mg PO DAILY [facility] Last Admin: 03/19/17 09:10 Dose: 50 mg Non-Formulary Medication (Doxepin Hcl [Doxepin Hcl]) 10 mg PO HS [facility] Last Admin: 03/18/17 21:41 Dose: Not Given Pantoprazole Sodium (Protonix Ec Tab) 40 mg PO ACB [facility] Last Admin: 03/19/17 08:00 Dose: 40 mg Prasugrel (Effient) 10 mg PO DAILY [facility] Last Admin: 03/19/17 09:07 Dose: 10 mg Tizanidine HCl (Zanaflex) 4 mg PO HS [facility] Last Admin: 03/18/17 21:42 Dose: 4 mg Tramadol HCl (Ultram) 50 mg PO TID [facility] Last Admin: 03/19/17 09:09 Dose: 50 mg Results - Vital Signs Recent Vital Signs: Last Vital Signs Temp 98 F 03/19/17 12:00 Pulse 67 03/19/17 12:00 Resp 20 03/19/17 12:00 BP 128/80 03/19/17 12:00 Pulse Ox 97 03/19/17 12:00 - Labs Result Diagrams: 03/19/17 04:15 03/19/17 04:15 Labs: Laboratory Results - last 24 hr 03/19/17 03/19/17 03/19/17 04:15 04:15 11:55 WBC 3.3 L D RBC 3.46 L Hgb 9.2 L Hct 29.0 L MCV 83.8 MCH 26.6 MCHC 31.7 RDW 15.7 H Plt Count 157 MPV 9.7 Gran % 50.9 Lymph % (Auto) 32.9 Hemphill % (Auto) 12.9 H Eos % (Auto) 2.7 Baso % (Auto) 0.6 Gran # 1.70 Lymph # 1.1 L Hemphill # 0.4 Eos # 0.1 Baso # 0.02 Sodium 135 Potassium 4.4 Chloride 99 Carbon Dioxide 28 Anion Gap 12 BUN 28 H Creatinine 1.6 H Est GFR ( Amer) 40 Est GFR (Non-Af Amer) 33 Random Glucose 84 Calcium 8.8 Total Bilirubin 0.4 AST 32 ALT 26 Alkaline Phosphatase 55 Total Protein 6.3 Albumin 3.5 Globulin 2.7 Albumin/Globulin Ratio 1.3 Ur Random Sodium 46
--- NOTE | 2017-03-19 18:01 | CP.PCM.PN ---
Subjective - Date & Time of Evaluation Date of Evaluation: 03/19/17 Time of Evaluation: 07:40 - Subjective Subjective: Pt s/e bedside. NO new complaints. Pt states that she will be getting her colonoscopy tomorrow. She feels much better than she did on admission. No further complaints. Objective - Vital Signs/Intake and Output Vital Signs (last 24 hours): Temp Pulse Resp BP Pulse Ox 98 F 68 20 128/80 97 03/19/17 12:00 03/19/17 14:00 03/19/17 12:00 03/19/17 12:00 03/19/17 12:00 Intake and Output: 03/19/17 03/19/17 06:59 18:59 Intake Total 2660 840 Output Total 2 Balance 2658 840 - Medications Medications: Current Medications Acetaminophen (Tylenol 325mg Tab) 650 mg PO Q6H PRN PRN Reason: Headache Last Admin: 03/18/17 08:57 Dose: 650 mg Acetaminophen/Butalbital/Caffeine (Fioricet) 1 tab PO Q4H PRN PRN Reason: Headache Amlodipine Besylate (Norvasc) 5 mg PO DAILY [facility] Last Admin: 03/19/17 09:09 Dose: 5 mg Aspirin (Aspirin Chewable) 81 mg PO DAILY [facility] Last Admin: 03/19/17 09:09 Dose: 81 mg Atorvastatin Calcium (Lipitor) 40 mg PO DAILY [facility] Last Admin: 03/19/17 09:06 Dose: 40 mg Fluoxetine HCl (Prozac) 20 mg PO DAILY [facility] Last Admin: 03/19/17 09:09 Dose: 20 mg Hydroxychloroquine Sulfate (Plaquenil) 400 mg PO DAILY [facility] Last Admin: 03/19/17 09:07 Dose: 400 mg Sodium Chloride (Sodium Chloride 0.9%) 1,000 mls @ 75 mls/hr IV .[id number] [facility] Last Admin: 03/19/17 13:57 Dose: 75 mls/hr Iron Sucrose 100 mg/ Sodium (Chloride) 105 mls @ 210 mls/hr IVPB DAILY [facility] Stop: 03/22/17 14:46 Last Admin: 03/19/17 09:09 Dose: 210 mls/hr Levothyroxine Sodium (Synthroid) 112 mcg PO ACB [facility] Last Admin: 03/19/17 08:00 Dose: 112 mcg Levothyroxine Sodium (Synthroid) 25 mcg PO ACB [facility] Last Admin: 03/19/17 08:00 Dose: 25 mcg Losartan Potassium (Cozaar) 50 mg PO DAILY [facility] Last Admin: 03/19/17 09:10 Dose: 50 mg Non-Formulary Medication (Doxepin Hcl [Doxepin Hcl]) 10 mg PO HS [facility] Last Admin: 03/18/17 21:41 Dose: Not Given Pantoprazole Sodium (Protonix Ec Tab) 40 mg PO ACB [facility] Last Admin: 03/19/17 08:00 Dose: 40 mg Prasugrel (Effient) 10 mg PO DAILY [facility] Last Admin: 03/19/17 09:07 Dose: 10 mg Tizanidine HCl (Zanaflex) 4 mg PO HS [facility] Last Admin: 03/18/17 21:42 Dose: 4 mg Tramadol HCl (Ultram) 50 mg PO TID [facility] Last Admin: 03/19/17 17:34 Dose: Not Given - Labs Labs: 03/19/17 04:15 03/19/17 04:15 PT 11.1 Seconds (9.9-11.8) 03/15/17 16:00 INR 1.03 (0.93-1.08) 03/15/17 16:00 APTT 23.2 Seconds (23.7-30.8) L 03/15/17 16:00 - Head Exam Head Exam: ATRAUMATIC, NORMAL INSPECTION, NORMOCEPHALIC - Eye Exam Eye Exam: EOMI, Normal appearance, PERRL Pupil Exam: NORMAL ACCOMODATION, PERRL - ENT Exam ENT Exam: Mucous Membranes Moist, Normal Exam - Neck Exam Neck Exam: Normal Inspection - Respiratory Exam Respiratory Exam: Clear to Ausculation Bilateral, NORMAL BREATHING PATTERN - Cardiovascular Exam Cardiovascular Exam: REGULAR RHYTHM, +S1, +S2 - GI/Abdominal Exam GI & Abdominal Exam: Soft, Normal Bowel Sounds - Extremities Exam Extremities Exam: Full ROM, Normal Capillary Refill, Normal Inspection - Back Exam Back Exam: NORMAL INSPECTION - Neurological Exam Neurological Exam: Alert, Awake, CN II-XII Intact, Normal Gait, Oriented x3 - Psychiatric Exam Psychiatric exam: Normal Affect, Normal Mood - Skin Skin Exam: Normal Color Assessment and Plan - Assessment and Plan (Free Text) Assessment: 1. Anemia- stable - likely 2/2 GI Bleed - s/p 2U PRBC - EGD on December 2016 showed barretts esophagus without ulcerations - Pt receives iron infusion as outpatient with Dr. Catalan - Continue Effient and ASA - Heme consulted - As per GI, pt scheduled for inpatient colonoscopy tomorrow 2. DEANA likely 2/2 hemodynamic changes per Nephro - Cr: 1.7 (increased from 1.6) - FeNa: 0.5%- Pre-renal etiology - Nephro consulted: repeat UA, spot protein/cr and albumin/cr ratio obtain good glycemic control - NS@75 3. Hypertensive urgency - resolved - BP stable at this time - Continue Cozaar, Norvasc and HCTZ 4. HLD - Continue Lipitor 5. Hypothyroidism - Continue Synthroid 6. Hx of SLE - Continue Plaquenil, Tramadol and Zanaflex for pain 7. Hx of depression - Prozac and Doxepin GI ppx: Protonix DVT ppx: SCDs Dispo: D/C home once medically cleared and follow up with Dr. Mckinnon (PMD), Dr. Johnson (Nephro) Case seen, discussed and reviewed with attending
--- NOTE | 2017-03-19 19:18 | CON ---
DATE: 03/19/2017 HISTORY OF PRESENT ILLNESS: The patient is a 62-year-old woman who presents with progressive shortness of breath. No chest pain noted. She was found to have a hemoglobin of seven. The patient is not aware of dark stools; however, she was found to have dark stools in the emergency room. PAST MEDICAL HISTORY: Includes PTCA and stent of an LAD with a drug-eluting stent in 05/2016. She has a chronically occluded RCA. In addition, the patient suffers from hypercholesterolemia as well as hypertension. Her past medical history is also notable for lupus erythematosus. SOCIAL HISTORY: Denies smoking. REVIEW OF SYSTEMS: 14-point review of systems was reviewed in detail. After her transfusions, the patient is asymptomatic. PHYSICAL EXAMINATION: VITAL SIGNS: Blood pressure is 128/80, the heart rate is in the 60s, normal sinus rhythm. NECK: Negative JVD. LUNGS: Without rales. HEART: S1, S2. EXTREMITIES: Without edema. LABORATORY: Creatinine is 1.60, the hemoglobin has gone from 7 up to 9.2 today. IMPRESSION: 1. Marked anemia. 2. Need to rule out gastrointestinal bleed. 3. Stable angina. 4. History of percutaneous transluminal coronary angioplasty and stent of a left anterior descending. 5. Chronically occluded right coronary artery. 6. Lupus erythematosus. 7. Mild renal insufficiency. 8. Hypercholesterolemia. PLAN: Given these findings, the patient's cardiac status is stable. She needs to undergo GI workup to rule out source of blood loss from the GI tract as soon as possible so that we can place her back on her Effient for her drug-eluting stent. Reese Morgan MD
[2017-03-20] MEDS: DOXEPIN HCL 10 MG PO SCH ×2 (05:12→22:00)
[2017-03-20] MEDS: Levothyroxine 112 MCG TAB PO SCH ×2 (07:38→14:28)
[2017-03-20] MEDS: Levothyroxine 25 MCG TAB PO SCH ×2 (07:38→14:30)
[2017-03-20 08:28] LABS: BASO # 0.02 K/mm3 (0.0-2.0); BASO % 0.6 % (0.0-3.0); EOS # 0.1 (0.0-0.7); EOS % 3.1 % (1.5-5.0); GRAN # 2.14 (1.4-6.5); GRAN % 60.9 % (50.0-68.0); HEMOGLOBIN 9.5 g/dL (12.0-16.0); LYMPH # 0.8 (1.2-3.4); LYMPH % 23.4 % (22.0-35.0); MEAN CELL VOLUME 85.4 fl (80.0-105.0); MEAN CORPUSCULAR HEMOGLOBIN 26.2 pg (25.0-35.0); MEAN CORPUSCULAR HGB CONC 30.6 g/dl (31.0-37.0); MEAN PLATELET VOLUME 10.2 fl (7.0-11.0); MONO # 0.4 (0.1-0.6); PLATELET COUNT 154 10^3/uL (120.0-450.0); RBC 3.63 10^6/uL (3.5-6.1); RED CELL DISTRIBUTION WIDTH 15.9 % (11.5-14.5); WHITE BLOOD COUNT 3.5 10^3/ul (4.5-11.0)
[2017-03-20 08:47] LABS: ALB/GLOB RATIO 1.4 (1.1-1.8); ALBUMIN 3.9 g/dL (3.0-4.8); CALCIUM 9.2 mg/dL (8.4-10.5); MAGNESIUM 2.1 mg/dL (1.7-2.2)
[2017-03-20] MEDS: Pantoprazole 40 mg EC Tab PO SCH ×2 (09:18→14:31)
--- NOTE | 2017-03-20 11:35 | CP.PCM.PN ---
Subjective - Date & Time of Evaluation Date of Evaluation: 03/20/17 Time of Evaluation: 11:33 - Subjective Subjective: Follow up Nephrology Consultation: Assessment: Stable Acute Kidney Injury (N17.9) likely due to hemodyanmic changes as evident by BP high initially and now well controlled: resolved Hypertensive Chronic Kidney Disease (I12.9) Chronic Kidney Disease (N18.9) Stage 3 without proteinuria (R80.9) likely due to Hx of IgA nephropathy Iron def Anemia (D64.9), HTN (I12.9) hx of CAD, scleroderma, SLE Plan normal UA hence doubt lupus nephritic as the cause. with relatively stable renal function and well controlled BP at this time, less likely sclerodermal renal crisis as the cause of her DEANA. hence favors hemodyanmic injury as the primary physiology Hypertension control with meds as ordered. Patient on ARB. will d/c diuretics at this time due to DEANA. continue with IVF while being planned for endoscopic eval of her iron def anemia. agree with IV iron by georgie. Monitor Input/Output, daily weights and renal function with basic metabolic panel Repeat urine analysis, spot protein/creatinine and albumin/creatinine ratio Dose meds/antibiotics for reduced GFR. Avoid fleets enema/magnesium based laxatives. Avoid nephrotoxins/NSAIDs/ iodinated contrast (unless needed emergently) Glycemic control Further work up/management as per primary team Thanks for allowing me to participate in care of your patient. Will follow patient with you. Please call if any Qs Dr Tyler Moreira Office: [phone] Chief Complaint; high BP Reason for consult: DEANA and HTN HPI: Pt is a 62 y/o F with hx of SLE, scleroderma, CAD, chronic dysphagia, greene esophagus, hypertension and biopsy proven IgA nephropathy in 2012 and CKD stage 3 with baseline cr 1.3-1.4 mg/dL, also Anemia, MGUS (f/up by heme) presented with complaints of uncontrolled severe HTN and also anemia. seen by GI and heme. getting IV iron and planned for endoscopic eval in view of FOB + renal consult for DEANA. cr 1.6-1.7 now. Subjective: Denies chest pain, palpitation, shortness of breath, leg swelling ROS: Constitutional Symptoms: Denies fever. No chills. No Recent Weight Changes Eyes: denies change in vision, denies watery eyes, denies double vision Ears/Nose/Mouth/Throat: Denies Abnormal Taste. No Bad breath no Bad Taste. has chronic difficulty in swallowing. Cardiovascular: No chest pain. There is no shortness of breath. No palpitations. Pulmonary: No shortness of breath no cough. Gastrointestinal: denies abdominal pain No nausea. No vomiting. Denies change in bowel habits. Denies Bleeding Genitourinary: No Change in force of strain when urinating. No increase in urinary frequency. No pain while urinating. Denies blood in urine. Neurological: Denies headaches. No dizziness. Denies loss of balance. Denies weakness, denies tingling/numbness Dermatological: No Rash or Bruising or ulcers. Psychiatric: Denies Anxiety. No depression. Denies hallucinations. Rheumatological: No joint pain. Denies Joint swelling Endocrine: Denies tiredness/Fatigue denies Heat/Cold Intolerance. All other negative Physical Examination: General Appearance: Comfortable, in no acute respiratory distress, co-operative . Vitals reviewed and noted as below Head; Atraumatic, normocephalic ENT: no ulcers no thrush. Tongue is midline. Oropharynx: no rash or ulcers. EYES: Pupils are equal, round and reactive to light accommodation. Eye muscles and extraocular movement intact. Sclera is anicteric. Neck; supple no lymphadenopathy, no thyromegaly or bruit Lungs: Normal respiratory rate/effort. Breath sounds bilateral equal and clear Heart: Normal rate. s1s2 normal. No rub or gallop. Extremities: no edema. No varicose veins. minimal puffiness around ankle but no pitting edema. Neurological: Patient is alert, awake and oriented to person, place and time. No focal deficit. Strength bilateral appropriate and equal Skin: Warm and dry. Normal turgor. No rash. Palpitation: Normal elasticity for age Abdomen: Abdomen is soft. Bowel sounds +. There is no abdominal tenderness, no guarding/rigidity no organomegaly Psych: normal insight and normal affect/mood MSK: no joint tenderness or swelling. Digits and nails normal, no deformity : kidney or bladder not palpable Labs/imaging/EKG reviewed. Past medical history, past surgical history, family history, social history, allergy reviewed and noted as below Family hx: no hx of CKD. Rest non-contributory Work up: kidney BX 2013: IgA nephropathy [id number] UA: no blood or protein TSAT 4% Ferritin 6 Imaging: unremarkable for kidneys Objective - Vital Signs/Intake and Output Vital Signs (last 24 hours): Temp Pulse Resp BP Pulse Ox 97.9 F 90 18 148/82 98 03/20/17 00:01 03/20/17 09:00 03/20/17 09:00 03/20/17 09:00 03/20/17 09:00 Intake and Output: 03/20/17 03/20/17 06:59 18:59 Intake Total 700 900 Balance 700 900 - Medications Medications: Current Medications Acetaminophen (Tylenol 325mg Tab) 650 mg PO Q6H PRN PRN Reason: Headache Last Admin: 03/18/17 08:57 Dose: 650 mg Acetaminophen/Butalbital/Caffeine (Fioricet) 1 tab PO Q4H PRN PRN Reason: Headache Amlodipine Besylate (Norvasc) 5 mg PO DAILY [facility] Last Admin: 03/19/17 09:09 Dose: 5 mg Aspirin (Aspirin Chewable) 81 mg PO DAILY [facility] Last Admin: 03/19/17 09:09 Dose: 81 mg Atorvastatin Calcium (Lipitor) 40 mg PO DAILY [facility] Last Admin: 03/19/17 09:06 Dose: 40 mg Fluoxetine HCl (Prozac) 20 mg PO DAILY [facility] Last Admin: 03/19/17 09:09 Dose: 20 mg Hydroxychloroquine Sulfate (Plaquenil) 400 mg PO DAILY [facility] Last Admin: 03/19/17 09:07 Dose: 400 mg Sodium Chloride (Sodium Chloride 0.9%) 1,000 mls @ 75 mls/hr IV .[id number] [facility] Last Admin: 03/19/17 13:57 Dose: 75 mls/hr Iron Sucrose 100 mg/ Sodium (Chloride) 105 mls @ 210 mls/hr IVPB DAILY [facility] Stop: 03/22/17 14:46 Last Admin: 03/20/17 10:29 Dose: 210 mls/hr Levothyroxine Sodium (Synthroid) 112 mcg PO ACB [facility] Last Admin: 03/20/17 07:38 Dose: Not Given Levothyroxine Sodium (Synthroid) 25 mcg PO ACB [facility] Last Admin: 03/20/17 07:38 Dose: Not Given Losartan Potassium (Cozaar) 50 mg PO DAILY [facility] Last Admin: 03/19/17 09:10 Dose: 50 mg Non-Formulary Medication (Doxepin Hcl [Doxepin Hcl]) 10 mg PO HS [facility] Last Admin: 03/20/17 05:12 Dose: Not Given Pantoprazole Sodium (Protonix Ec Tab) 40 mg PO ACB [facility] Last Admin: 03/20/17 09:18 Dose: Not Given Prasugrel (Effient) 10 mg PO DAILY [facility] Last Admin: 03/19/17 09:07 Dose: 10 mg Tizanidine HCl (Zanaflex) 4 mg PO HS [facility] Last Admin: 03/19/17 21:51 Dose: 4 mg Tramadol HCl (Ultram) 50 mg PO TID [facility] Last Admin: 03/19/17 17:34 Dose: Not Given - Labs Labs: 03/20/17 06:30 03/20/17 06:30 PT 11.1 Seconds (9.9-11.8) 03/15/17 16:00 INR 1.03 (0.93-1.08) 03/15/17 16:00 APTT 23.2 Seconds (23.7-30.8) L 03/15/17 16:00
--- NOTE | 2017-03-20 13:43 | CP.PCM.PN ---
Subjective - Date & Time of Evaluation Date of Evaluation: 03/20/17 Time of Evaluation: 07:15 - Subjective Subjective: Pt s/e bedside. No new complaints. Spoke to GI and Cardio - Plavix will not be held, so GI will be doing a DIAGNOSTIC colonoscopy tomorrow. She feels much better than she did on admission. Objective - Vital Signs/Intake and Output Vital Signs (last 24 hours): Temp Pulse Resp BP Pulse Ox 97.9 F 90 18 148/82 98 03/20/17 00:01 03/20/17 09:00 03/20/17 09:00 03/20/17 09:00 03/20/17 09:00 Intake and Output: 03/20/17 03/20/17 06:59 18:59 Intake Total 700 900 Balance 700 900 - Medications Medications: Current Medications Acetaminophen (Tylenol 325mg Tab) 650 mg PO Q6H PRN PRN Reason: Headache Last Admin: 03/18/17 08:57 Dose: 650 mg Acetaminophen/Butalbital/Caffeine (Fioricet) 1 tab PO Q4H PRN PRN Reason: Headache Amlodipine Besylate (Norvasc) 5 mg PO DAILY [facility] Last Admin: 03/19/17 09:09 Dose: 5 mg Aspirin (Aspirin Chewable) 81 mg PO DAILY [facility] Last Admin: 03/19/17 09:09 Dose: 81 mg Atorvastatin Calcium (Lipitor) 40 mg PO DAILY [facility] Last Admin: 03/19/17 09:06 Dose: 40 mg Fluoxetine HCl (Prozac) 20 mg PO DAILY [facility] Last Admin: 03/19/17 09:09 Dose: 20 mg Hydroxychloroquine Sulfate (Plaquenil) 400 mg PO DAILY [facility] Last Admin: 03/19/17 09:07 Dose: 400 mg Sodium Chloride (Sodium Chloride 0.9%) 1,000 mls @ 75 mls/hr IV .[id number] [facility] Last Admin: 03/19/17 13:57 Dose: 75 mls/hr Iron Sucrose 100 mg/ Sodium (Chloride) 105 mls @ 210 mls/hr IVPB DAILY [facility] Stop: 03/22/17 14:46 Last Admin: 03/20/17 10:29 Dose: 210 mls/hr Levothyroxine Sodium (Synthroid) 112 mcg PO ACB [facility] Last Admin: 03/20/17 07:38 Dose: Not Given Levothyroxine Sodium (Synthroid) 25 mcg PO ACB [facility] Last Admin: 03/20/17 07:38 Dose: Not Given Losartan Potassium (Cozaar) 50 mg PO DAILY [facility] Last Admin: 03/19/17 09:10 Dose: 50 mg Non-Formulary Medication (Doxepin Hcl [Doxepin Hcl]) 10 mg PO HS [facility] Last Admin: 03/20/17 05:12 Dose: Not Given Pantoprazole Sodium (Protonix Ec Tab) 40 mg PO ACB [facility] Last Admin: 03/20/17 09:18 Dose: Not Given Polyethylene Glycol/Electrolytes (Golytely) 4,000 ml PO ONCE ONE Stop: 03/20/17 15:01 Prasugrel (Effient) 10 mg PO DAILY [facility] Last Admin: 03/19/17 09:07 Dose: 10 mg Tizanidine HCl (Zanaflex) 4 mg PO HS [facility] Last Admin: 03/19/17 21:51 Dose: 4 mg Tramadol HCl (Ultram) 50 mg PO TID [facility] Last Admin: 03/19/17 17:34 Dose: Not Given - Labs Labs: 03/20/17 06:30 03/20/17 06:30 PT 11.1 Seconds (9.9-11.8) 03/15/17 16:00 INR 1.03 (0.93-1.08) 03/15/17 16:00 APTT 23.2 Seconds (23.7-30.8) L 03/15/17 16:00 - Additional Findings Additional findings: Phys Exam: VS as above Constitutional: a&o x 4, nad Head and Neck: neck supple, no jvd, trachea midline, carotid midline, no cervical/head mass Eyes: herrera, nonicteric sclera, eom intact ENT: auditory acuity grossly intact, throat not congested, no nasal deformity Cardio: rrr, no m/r/g, no carotid bruit, nml s1, s2 Pulm: +decreased breath sounds on right; on oxygen; no accessory muscle use, ctab Abd: s/nt/nd, nbs x 4 q, no palpable masses Derm: no rashes, no ulcers, no lesions Extr: no edema, no cyanosis, no calf tenderness, no lesions, no varicosities Neuro: cn II-XII grossly intact, ue and le 5/5 muscle strength bilaterally, no los ue, le bilaterally and core Assessment and Plan - Assessment and Plan (Free Text) Plan: 1. Anemia- stable - likely 2/2 GI Bleed - s/p 2U PRBC - EGD on December 2016 showed barretts esophagus without ulcerations - Pt receives iron infusion as outpatient with Dr. Catalan - Continue Effient and ASA - Heme consulted - As per GI, pt scheduled for inpatient colonoscopy tomorrow. - Liquid diet today - Golytely at 3 PM today - NPO after breakfast except medications tomorrow 2. DEANA likely 2/2 hemodynamic changes per Nephro - resolved - Cr: 1.3 - FeNa: 0.5%- Pre-renal etiology - Nephro consulted: repeat UA, spot protein/cr and albumin/cr ratio - pending obtain good glycemic control - NS@75 3. Hypertensive urgency - resolved - BP stable at this time - Continue Cozaar, Norvasc and HCTZ 4. HLD - Continue Lipitor 5. Hypothyroidism - Continue Synthroid 6. Hx of SLE - Continue Plaquenil, Tramadol and Zanaflex for pain 7. Hx of depression - Prozac and Doxepin GI ppx: Protonix DVT ppx: SCDs Dispo: D/C home once medically cleared and follow up with Dr. Mckinnon (PMD), Dr. Johnson (Nephro) Case seen, discussed and reviewed with attending
--- NOTE | 2017-03-20 13:49 | PN ---
DATE: 03/20/2017 SUBJECTIVE: The patient is asymptomatic. PHYSICAL EXAMINATION: VITAL SIGNS: Blood pressure is 148/82, heart rates in the 80s, normal sinus rhythm. NECK: Negative JVD. LUNGS: Without rales. HEART: With S1 and S2. EXTREMITIES: Without edema. LABORATORY DATA: Hemoglobin in stable at 9.5. Chemistries unremarkable. IMPRESSION: 1. Marked anemia. 2. History of drug-eluting stents for critical coronary artery disease. 3. Critical coronary artery disease. 4. Probable gastrointestinal bleed in the past. PLAN: Given the findings, the patient's cardiac status is stable. She should have colonoscopy and an invasive GI workup while on Effient. If biopsy is necessary, may need to be done at a separate sitting once we stop the Effient. We will not stop the Effient now because of the risk of stent thrombosis. Reese Morgan MD
[2017-03-20] MEDS ORDERED: Peg-Electrolyte Oral Soln 4L (Golytely) PO ONE (15:00)
[2017-03-20] MEDS: Sodium Chloride 0.9% 1,000 ML IV SCH ×2 (18:18→18:20)
[2017-03-21 05:22] LABS: BASO # 0.02 K/mm3 (0.0-2.0); BASO % 0.5 % (0.0-3.0); EOS # 0.1 (0.0-0.7); EOS % 1.7 % (1.5-5.0); GRAN # 2.61 (1.4-6.5); GRAN % 63.7 % (50.0-68.0); HEMOGLOBIN 9.2 g/dL (12.0-16.0); LYMPH % 23.4 % (22.0-35.0); MEAN CELL VOLUME 85.6 fl (80.0-105.0); MEAN CORPUSCULAR HEMOGLOBIN 26.1 pg (25.0-35.0); MEAN CORPUSCULAR HGB CONC 30.5 g/dl (31.0-37.0); MEAN PLATELET VOLUME 10.3 fl (7.0-11.0); MONO # 0.4 (0.1-0.6); MONO % 10.7 % (1.0-6.0); PLATELET COUNT 158 10^3/uL (120.0-450.0); RBC 3.53 10^6/uL (3.5-6.1); RED CELL DISTRIBUTION WIDTH 16.2 % (11.5-14.5); WHITE BLOOD COUNT 4.1 10^3/ul (4.5-11.0)
[2017-03-21 05:52] LABS: ALB/GLOB RATIO 1.4 (1.1-1.8); ALBUMIN 3.6 g/dL (3.0-4.8); ALT/SGPT 22 U/L (7-56); AST/SGOT 25 U/L (15-39); BLOOD UREA NITROGEN 12 mg/dL (7-21); CALCIUM 9.1 mg/dL (8.4-10.5); GFR AFRICAN-AMERICAN > 60; GFR NON-AFRICAN AMERICAN 51
[2017-03-21] MEDS: Sodium Chloride 0.9% 1,000 ML IV SCH (06:50)
[2017-03-21] MEDS: Levothyroxine 112 MCG TAB PO SCH (08:14)
[2017-03-21] MEDS: Pantoprazole 40 mg EC Tab PO SCH (08:14)
[2017-03-21] MEDS: Levothyroxine 25 MCG TAB PO SCH (08:15)
[2017-03-21 08:23] LABS: MAGNESIUM 1.9 mg/dL (1.7-2.2)
--- NOTE | 2017-03-21 08:50 | PN ---
CARDIOLOGY FOLLOWUP DATE: 03/21/2017 SUBJECTIVE: The patient is comfortable. No shortness of breath. OBJECTIVE: VITAL SIGNS: Blood pressure 114/64, heart rate in the 70s. NECK: Negative JVD. LUNGS: Without rales. HEART: S1, S2. EXTREMITIES: Without edema. LABORATORY DATA: Hemoglobin is 9.2. Electrolytes are stable. Review of the telemetry strip reveals likely nonsustained supraventricular tachycardia, 5 beats. No evidence of V tach. IMPRESSION: 1. Anemia. 2. Transient supraventricular tachycardia 3. Stable angina. 4. Coronary artery disease. 5. History of percutaneous transluminal coronary angioplasty and stent. 6. Hypercholesterolemia. PLAN: Given these findings, there is no contraindications for her planned colonoscopy today. Reese Morgan MD
--- NOTE | 2017-03-21 12:04 | CP.PCM.PN ---
Subjective - Date & Time of Evaluation Date of Evaluation: 03/21/17 Time of Evaluation: 12:02 - Subjective Subjective: Follow up Nephrology Consultation: Assessment: Stable Acute Kidney Injury (N17.9) likely due to hemodyanmic changes as evident by BP high initially and now well controlled: resolved Hypertensive Chronic Kidney Disease (I12.9) Chronic Kidney Disease (N18.9) Stage 3 without proteinuria (R80.9) likely due to Hx of IgA nephropathy Iron def Anemia (D64.9), HTN (I12.9) hx of CAD, scleroderma, SLE Plan normal UA hence doubt lupus nephritic as the cause. with relatively stable renal function and well controlled BP at this time, less likely sclerodermal renal crisis as the cause of her DEANA. hence favors hemodyanmic injury as the primary physiology Hypertension control with meds as ordered. Patient on ARB. Increased norvasc to 10 mg. ,may increase ARB dose as well if needed for HTN control. d/c IVF GI eval of her iron def anemia. agree with IV iron by heme. Dose meds/antibiotics for improved GFR. Avoid fleets enema/magnesium based laxatives. Avoid nephrotoxins/NSAIDs/ iodinated contrast (unless needed emergently) Glycemic control Further work up/management as per primary team Thanks for allowing me to participate in care of your patient. Will follow patient with you. Please call if any Qs. f/up in office 1 week post d/c Dr Tyler Moreira Office: [phone] Chief Complaint; none today Reason for consult: DEANA and HTN HPI: Pt is a 62 y/o F with hx of SLE, scleroderma, CAD, chronic dysphagia, greene esophagus, hypertension and biopsy proven IgA nephropathy in 2012 and CKD stage 3 with baseline cr 1.3-1.4 mg/dL, also Anemia, MGUS (f/up by heme) presented with complaints of uncontrolled severe HTN and also anemia. seen by GI and heme. getting IV iron and planned for endoscopic eval in view of FOB + renal consult for DEANA. cr 1.6-1.7 now. Subjective: Denies chest pain, palpitation, shortness of breath, leg swelling. plan for colonoscopy today ROS: Constitutional Symptoms: Denies fever. No chills. No Recent Weight Changes Eyes: denies change in vision, denies watery eyes, denies double vision Ears/Nose/Mouth/Throat: Denies Abnormal Taste. No Bad breath no Bad Taste. has chronic difficulty in swallowing. Cardiovascular: No chest pain. There is no shortness of breath. No palpitations. Pulmonary: No shortness of breath no cough. Gastrointestinal: denies abdominal pain No nausea. No vomiting. Denies change in bowel habits. Denies Bleeding Genitourinary: No Change in force of strain when urinating. No increase in urinary frequency. No pain while urinating. Denies blood in urine. Neurological: Denies headaches. No dizziness. Denies loss of balance. Denies weakness, denies tingling/numbness Dermatological: No Rash or Bruising or ulcers. Psychiatric: Denies Anxiety. No depression. Denies hallucinations. Rheumatological: No joint pain. Denies Joint swelling Endocrine: Denies tiredness/Fatigue denies Heat/Cold Intolerance. All other negative Physical Examination: General Appearance: Comfortable, in no acute respiratory distress, co-operative . Vitals reviewed and noted as below Head; Atraumatic, normocephalic ENT: no ulcers no thrush. Tongue is midline. Oropharynx: no rash or ulcers. EYES: Pupils are equal, round and reactive to light accommodation. Eye muscles and extraocular movement intact. Sclera is anicteric. Neck; supple no lymphadenopathy, no thyromegaly or bruit Lungs: Normal respiratory rate/effort. Breath sounds bilateral equal and clear Heart: Normal rate. s1s2 normal. No rub or gallop. Extremities: no edema. No varicose veins. minimal puffiness around ankle but no pitting edema. Neurological: Patient is alert, awake and oriented to person, place and time. No focal deficit. Strength bilateral appropriate and equal Skin: Warm and dry. Normal turgor. No rash. Palpitation: Normal elasticity for age Abdomen: Abdomen is soft. Bowel sounds +. There is no abdominal tenderness, no guarding/rigidity no organomegaly Psych: normal insight and normal affect/mood MSK: no joint tenderness or swelling. Digits and nails normal, no deformity : kidney or bladder not palpable Labs/imaging/EKG reviewed. Past medical history, past surgical history, family history, social history, allergy reviewed and noted as below Family hx: no hx of CKD. Rest non-contributory Work up: kidney BX 2013: IgA nephropathy [id number] UA: no blood or protein TSAT 4% Ferritin 6 Imaging: unremarkable for kidneys Objective - Vital Signs/Intake and Output Vital Signs (last 24 hours): Temp Pulse Resp BP Pulse Ox 97.8 F 68 20 157/88 H 97 03/21/17 06:00 03/21/17 10:00 03/21/17 06:00 03/21/17 10:00 03/21/17 06:00 Intake and Output: 03/21/17 03/21/17 06:59 18:59 Intake Total 1020 Balance 1020 - Medications Medications: Current Medications Acetaminophen (Tylenol 325mg Tab) 650 mg PO Q6H PRN PRN Reason: Headache Last Admin: 03/18/17 08:57 Dose: 650 mg Acetaminophen/Butalbital/Caffeine (Fioricet) 1 tab PO Q4H PRN PRN Reason: Headache Amlodipine Besylate (Norvasc) 10 mg PO DAILY [facility] Aspirin (Aspirin Chewable) 81 mg PO DAILY [facility] Last Admin: 03/21/17 09:58 Dose: Not Given Atorvastatin Calcium (Lipitor) 40 mg PO DAILY [facility] Last Admin: 03/21/17 10:00 Dose: 40 mg Fluoxetine HCl (Prozac) 20 mg PO DAILY [facility] Last Admin: 03/21/17 10:00 Dose: 20 mg Hydroxychloroquine Sulfate (Plaquenil) 400 mg PO DAILY [facility] Last Admin: 03/20/17 14:39 Dose: 400 mg Iron Sucrose 100 mg/ Sodium (Chloride) 105 mls @ 210 mls/hr IVPB DAILY [facility] Stop: 03/22/17 14:46 Last Admin: 03/21/17 10:12 Dose: 210 mls/hr Levothyroxine Sodium (Synthroid) 112 mcg PO ACB [facility] Last Admin: 03/21/17 08:14 Dose: 112 mcg Levothyroxine Sodium (Synthroid) 25 mcg PO ACB [facility] Last Admin: 03/21/17 08:15 Dose: 25 mcg Losartan Potassium (Cozaar) 50 mg PO DAILY [facility] Last Admin: 03/21/17 09:59 Dose: 50 mg Non-Formulary Medication (Doxepin Hcl [Doxepin Hcl]) 10 mg PO HS [facility] Last Admin: 03/20/17 22:00 Dose: Not Given Pantoprazole Sodium (Protonix Ec Tab) 40 mg PO ACB [facility] Last Admin: 03/21/17 08:14 Dose: 40 mg Prasugrel (Effient) 10 mg PO DAILY [facility] Last Admin: 03/21/17 10:00 Dose: 10 mg Tizanidine HCl (Zanaflex) 4 mg PO HS [facility] Last Admin: 03/20/17 21:13 Dose: Not Given Tramadol HCl (Ultram) 50 mg PO TID [facility] Last Admin: 03/21/17 10:00 Dose: Not Given - Labs Labs: 03/21/17 04:46 03/21/17 04:46 PT 11.1 Seconds (9.9-11.8) 03/15/17 16:00 INR 1.03 (0.93-1.08) 03/15/17 16:00 APTT 23.2 Seconds (23.7-30.8) L 03/15/17 16:00
[2017-03-21] MEDS ORDERED: Propofol 10 mg/ml Inj (20 ML) ONE (14:54)
[2017-03-21] MEDS ORDERED: Lidocaine 1% Inj (20ml) ONE (14:54)
[2017-03-21] MEDS ORDERED: Midazolam 2 MG/2 ML VIAL ONE (14:54)
[2017-03-21] MEDS ORDERED: Sodium Chloride 0.9% 1,000 ML IV SCH (15:30)
[2017-03-21 15:44] VITALS: O2SAT 97
--- NOTE | 2017-03-21 16:08 | CP.PCM.DIS ---
Provider - Provider Date of Admission: 03/16/17 12:07 Attending physician: Donnell Hayward MD Primary care physician: Donnell Hayward MD Time Spent in preparation of Discharge (in minutes): 45 Hospital Course - Lab Results Lab Results: Micro Results 03/16/17 12:45 Blood Blood Culture - Final NO GROWTH AFTER 5 DAYS 03/16/17 12:45 Blood Gram Stain - Final TEST NOT PERFORMED Most Recent Lab Values WBC 4.1 10^3/ul (4.5-11.0) L 03/21/17 04:46 RBC 3.53 10^6/uL (3.5-6.1) 03/21/17 04:46 Hgb 9.2 g/dL (12.0-16.0) L 03/21/17 04:46 Hct 30.2 % (36.0-48.0) L 03/21/17 04:46 MCV 85.6 fl (80.0-105.0) 03/21/17 04:46 MCH 26.1 pg (25.0-35.0) 03/21/17 04:46 MCHC 30.5 g/dl (31.0-37.0) L 03/21/17 04:46 RDW 16.2 % (11.5-14.5) H 03/21/17 04:46 Plt Count 158 10^3/uL (120.0-450.0) 03/21/17 04:46 MPV 10.3 fl (7.0-11.0) 03/21/17 04:46 Gran % 63.7 % (50.0-68.0) 03/21/17 04:46 Lymph % (Auto) 23.4 % (22.0-35.0) 03/21/17 04:46 [place] % (Auto) 10.7 % (1.0-6.0) H 03/21/17 04:46 Eos % (Auto) 1.7 % (1.5-5.0) 03/21/17 04:46 Baso % (Auto) 0.5 % (0.0-3.0) 03/21/17 04:46 Gran # 2.61 (1.4-6.5) 03/21/17 04:46 Lymph # 1.0 (1.2-3.4) L 03/21/17 04:46 [place] # 0.4 (0.1-0.6) 03/21/17 04:46 Eos # 0.1 (0.0-0.7) 03/21/17 04:46 Baso # 0.02 K/mm3 (0.0-2.0) 03/21/17 04:46 Retic Count 1.14 % (0.5-1.5) 03/15/17 16:55 PT 11.1 Seconds (9.9-11.8) 03/15/17 16:00 INR 1.03 (0.93-1.08) 03/15/17 16:00 APTT 23.2 Seconds (23.7-30.8) L 03/15/17 16:00 D-Dimer, Quantitative 0.59 mg/L FEU (0-0.50) H 03/15/17 16:00 Sodium 140 mmol/L (132-148) 03/21/17 04:46 Potassium 4.0 mmol/L (3.6-5.0) 03/21/17 04:46 Chloride 103 mmol/L (95-110) 03/21/17 04:46 Carbon Dioxide 27 mmol/L (21-33) 03/21/17 04:46 Anion Gap 14 (10-20) 03/21/17 04:46 BUN 12 mg/dL (7-21) 03/21/17 04:46 Creatinine 1.1 mg/dL (0.5-1.4) 03/21/17 04:46 Est GFR ( Amer) > 60 03/21/17 04:46 Est GFR (Non-Af Amer) 51 03/21/17 04:46 Random Glucose 77 mg/dL (70-110) 03/21/17 04:46 Calcium 9.1 mg/dL (8.4-10.5) 03/21/17 04:46 Phosphorus 3.2 mg/dL (2.5-4.5) 03/20/17 06:30 Magnesium 1.9 mg/dL (1.7-2.2) 03/21/17 04:46 Iron 19 ug/dL (45-180) L 03/15/17 16:55 TIBC 389 ug/dL (265-497) 03/15/17 16:55 Ferritin 6.5 ng/mL 03/15/17 16:55 Total Bilirubin 0.3 mg/dL (0.2-1.3) 03/21/17 04:46 AST 25 U/L (15-39) 03/21/17 04:46 ALT 22 U/L (7-56) 03/21/17 04:46 Alkaline Phosphatase 77 U/L (38-133) 03/21/17 04:46 Lactate Dehydrogenase 488 U/L (333-699) 03/15/17 16:00 Total Creatine Kinase 64 U/L (35-230) 03/15/17 16:00 Troponin I < 0.01 ng/mL 03/15/17 16:00 NT-Pro-B Natriuret Pep 2500 pg/mL (0-450) H 03/15/17 16:00 Total Protein 6.2 g/dL (5.8-8.3) 03/21/17 04:46 Albumin 3.6 g/dL (3.0-4.8) 03/21/17 04:46 Globulin 2.6 gm/dL 03/21/17 04:46 Albumin/Globulin Ratio 1.4 (1.1-1.8) 03/21/17 04:46 Vitamin B12 317 pg/mL (239-931) 03/15/17 16:55 Folate 11.9 ng/mL 03/15/17 16:55 Urine Color Straw (YELLOW) 03/15/17 16:00 Urine Appearance Clear (CLEAR) 03/15/17 16:00 Urine pH 6.5 (4.7-8.0) 03/15/17 16:00 Ur Specific [place] <= 1.005 (1.005-1.035) 03/15/17 16:00 Urine Protein Negative mg/dL (<30 mg/dL) 03/15/17 16:00 Urine Glucose (UA) Negative mg/dL (NEGATIVE) 03/15/17 16:00 Urine Ketones Negative mg/dL (NEGATIVE) 03/15/17 16:00 Urine Blood Negative (NEGATIVE) 03/15/17 16:00 Urine Nitrate Negative (NEGATIVE) 03/15/17 16:00 Urine Bilirubin Negative (NEGATIVE) 03/15/17 16:00 Urine Urobilinogen 0.2 E.U./dL (<1 E.U./dL) 03/15/17 16:00 Ur Leukocyte Esterase Negative Myla/uL (NEGATIVE) 03/15/17 16:00 Ur Random Creatinine 72 mg/dL 03/17/17 11:59 U Random Total Protein See note mg/g creat (21-161) 03/19/17 11:55 Ur Random Sodium 46 meq/L 03/19/17 11:55 Ur Random Urea Nitrogn 355 mg/dL 03/17/17 11:59 Blood Type O NEGATIVE 03/15/17 21:25 Antibody Screen Negative 03/15/17 21:25 Crossmatch See Detail 03/15/17 21:25 BBK History Checked Patient has bt 03/15/17 21:25 Discharge Exam - Head Exam Head Exam: ATRAUMATIC, NORMAL INSPECTION, NORMOCEPHALIC Discharge Plan - Discharge Medications Prescriptions: Iron Sucrose [Venofer] 100 mg IVPB DAILY 10 Days - Follow Up Plan Condition: FAIR Disposition: HOME/ ROUTINE Additional Instructions: 1. Please follow up with your rounding and backing machine operator (Dr. Benton) within ONE week regarding your anemia 2. Please follow up with your cable former (Dr. Rodriguez) within ONE WEEK regarding your anemia 3. Please return to the ED if your symptoms worsen Referrals: Donnell Hayward MD [Primary Care Provider] -
[2017-03-21 16:52] VITALS: BP 153/80; PULSE 66; RESP 18; TEMP 97.4
== END 2017-03-21 17:42 | disposition home or self-care (01) | DRG 377 ==
LOC: ED 15:06 → ERH 17:43 → 2RSO 20:47 → OBSVTOIN 03-16 12:07
PROVIDERS: ADMIT Internal Medicine; ATTEND Internal Medicine
PROC: 30233N1 Transfusion of Nonautologous Red Blood Cells into Peripheral Vein, Percutaneous Approach (ICD-10-PCS; 2017-03-15)
PROC: 0DJD8ZZ Inspection of Lower Intestinal Tract, Via Natural or Artificial Opening Endoscopic (ICD-10-PCS; principal; 2017-03-21 14:00)
DX: K92.2 Gastrointestinal hemorrhage, unspecified (principal); D50.0 Iron deficiency anemia secondary to blood loss (chronic); K56.2 Volvulus; K63.3 Ulcer of intestine; M32.9 Systemic lupus erythematosus, unspecified; N17.9 Acute kidney failure, unspecified; N18.3 Chronic kidney disease, stage 3 (moderate); N02.8 Recurrent and persistent hematuria with other morphologic changes; I47.1 Supraventricular tachycardia; I16.1 Hypertensive emergency; M34.9 Systemic sclerosis, unspecified; K22.70 Barrett's esophagus without dysplasia; I25.118 Atherosclerotic heart disease of native coronary artery with other forms of angina pectoris; I12.9 Hypertensive chronic kidney disease with stage 1 through stage 4 chronic kidney disease, or unspecified chronic kidney disease; M81.0 Age-related osteoporosis without current pathological fracture; D63.1 Anemia in chronic kidney disease; E78.00 Pure hypercholesterolemia, unspecified; E03.9 Hypothyroidism, unspecified; E78.5 Hyperlipidemia, unspecified; F32.9 Major depressive disorder, single episode, unspecified; K21.9 Gastro-esophageal reflux disease without esophagitis; K44.9 Diaphragmatic hernia without obstruction or gangrene; R13.10 Dysphagia, unspecified; K57.30 Diverticulosis of large intestine without perforation or abscess without bleeding; K64.8 Other hemorrhoids; I25.2 Old myocardial infarction; Z95.5 Presence of coronary angioplasty implant and graft; Z79.82 Long term (current) use of aspirin

== ENCOUNTER 2017-03-31 13:52 | Observation (INO) | payer MEDICARE, MEDICAID ==
[2017-03-31 13:59] VITALS: BMI 25.4
[2017-03-31] MEDS ORDERED: Sodium Chloride 0.9% 1,000 ML IV STA (14:12)
--- NOTE | 2017-03-31 14:28 | ED PDOC ---
Arrival/HPI - History of Present Illness Time/Duration: < week Symptom Onset: Gradual Symptom Course: Worsening Quality: Pressure <Marsha Hidalgo - Last Filed: 03/31/17 15:27> <Srinath Valencia - Last Filed: 04/06/17 08:45> - General Time Seen by Provider: 03/31/17 13:53 - History of Present Illness Narrative History of Present Illness (Text): 03/31/17 14:21 62 year old female with past medical history of HTN, HLD, CAD s/p 6 stents presents for vomiting, dyspnea on exertion and fatigue. Patient states that she developed fatigue about 2 days ago. She then went for grocery shopping and became very short of breath. yesterday, pt was feeling nauseous but tried to eat a small meal. She ended up vomiting the food and some dark product as well. Patient denie shaving any F/C, D/C. Today patient developed epigastric pain that feels like a pressure sensation. Patient was discharged from hospital about 1 week prior after being seen of similar symptoms. Patient had colonoscopy performed at that time which showed erosions, divertisulosis and internal hemarrhoids. Biopsy is pending. (Marsha Hidalgo) Past Medical History - Provider Review Nursing Documentation Reviewed: Yes - Travel History Have you recently traveled outside [place] w/in the past 3 mons?: No - Infectious Disease Hx of Infectious Diseases: None - Tetanus Immunization Tetanus Immunization: Unknown - Reproductive Menopause: Yes - Cardiac Hx Hypertension: Yes Hx Pacemaker: No - Pulmonary Hx Respiratory Disorders: Yes - Neurological Hx Paralysis: No - HEENT Hx HEENT Disorder: Yes (eyeglasses) - Renal Hx Kidney Stones: Yes - Endocrine/Metabolic Hx Hyperthyroidism: Yes Hx Hypothyroidism: Yes - Hematological/Oncological Hx Blood Transfusions: Yes (2013) Hx Blood Transfusion Reaction: No - Integumentary Hx Dermatological Disorder: No - Musculoskeletal/Rheumatological Hx Musculoskeletal Disorders: Yes (SCLERODERMA - LUPUS) - Gastrointestinal Hx Gastroesophageal Reflux: Yes - Genitourinary/Gynecological Other/Comment: c-sections, breast self examination - Psychiatric Hx Emotional Abuse: No Hx Physical Abuse: No Hx Substance Use: No - Past Surgical History Past Surgical History: No Previous - Surgical History Hx Cardiac Catheterization: Yes - Anesthesia Hx Anesthesia Reactions: No Hx Malignant Hyperthermia: No - Suicidal Assessment Feels Threatened In Home Enviroment: No <Marsha Hidalgo - Last Filed: 03/31/17 15:27> Family/Social History - Physician Review Nursing Documentation Reviewed: Yes Family/Social History: Unknown Family HX Smoking Status: Never Smoked Hx Alcohol Use: Yes Hx Substance Use: No Hx Substance Use Treatment: No <Marsha Hidalgo - Last Filed: 03/31/17 15:27> Allergies/Home Meds <Marsha Hidalgo - Last Filed: 03/31/17 15:27> <Srinath Valencia - Last Filed: 04/06/17 08:45> Allergies/Adverse Reactions: Allergies chicken derived Allergy (Severe, Verified 04/03/17 13:31) ANAPHYLAXIS Home Medications: Home Meds Medication Instructions Recorded Confirmed Atorvastatin Calcium 40 mg PO DAILY 03/15/17 04/03/17 Levothyroxine [Synthroid] 150 mcg PO DAILY 03/15/17 04/03/17 Prasugrel [Effient] 10 mg PO DAILY 03/15/17 04/03/17 Valsartan [Diovan] 160 mg PO DAILY 03/15/17 04/03/17 Metoprolol Tartrate [Lopressor] 25 mg PO BID 04/03/17 04/03/17 Review of Systems - Review of Systems Constitutional: Normal. absent: Fatigue, Fevers Eyes: Normal. absent: Vision Changes, Photophobia ENT: absent: Normal, Hearing Changes, Sore Throat, Rhinorrhea Respiratory: SOB. absent: Cough, Sputum Cardiovascular: absent: Chest Pain, Calf Pain Gastrointestinal: Abdominal Pain, Nausea, Vomiting. absent: Constipation, Diarrhea Genitourinary Female: Dysuria. absent: Frequency Musculoskeletal: Normal. absent: Arthralgias, Back Pain Skin: Normal. absent: Rash, Pruritis, Skin Lesions Neurological: Normal. absent: Headache, Dizziness Endocrine: Normal. absent: Diaphoresis, Polyuria Hemo/Lymphatic: Normal. absent: Adenopathy Psychiatric: Normal. absent: Anxiety, Depression <Marsha Hidalgo - Last Filed: 03/31/17 15:27> Physical Exam Vital Signs Reviewed: Yes Temperature: Afebrile Blood Pressure: Hypertensive Pulse: Regular Respiratory Rate: Normal Appearance: Positive for: Well-Appearing, Non-Toxic, Comfortable Pain Distress: Mild Mental Status: Positive for: Alert and Oriented X 3 - Systems Exam Head: Present: Atraumatic, Normocephalic Pupils: Present: PERRL Mouth: Present: Moist Mucous Membranes Respiratory/Chest: Present: Clear to Auscultation, Good Air Exchange. No: Respiratory Distress, Accessory Muscle Use, Wheezes, Rales, Rhonchi Cardiovascular: Present: Regular Rate and Rhythm, Normal S1, S2. No: Murmurs, Rub, Gallop, Muffled Abdomen: Present: Tenderness (epigastric), Normal Bowel Sounds. No: Distention , Peritoneal Signs, Rebound, Guarding Lower Extremity: Present: Normal Inspection, NORMAL PULSES. No: Edema, CALF TENDERNESS Neurological: Present: GCS=15 Skin: Present: Warm, Dry, Normal Color. No: Rashes Psychiatric: Present: Alert, Oriented x 3, Normal Insight, Normal Concentration <Marsha Hidalgo - Last Filed: 03/31/17 15:27> Medical Decision Making - Lab Interpretations I have reviewed the lab results: Yes Interpretation: All labs normal - RAD Interpretation Coating Machine Operator: ED Physician - EKG Interpretation Interpreted by ED Physician: Yes Type: 12 lead EKG <Marsha Hidalgo - Last Filed: 03/31/17 15:27> <Srinath Valencia - Last Filed: 04/06/17 08:45> ED Course and Treatment: 03/31/17 14:59 62 year old female presents for dyspnea on exertion, N/V and epigastric abd pain Will check CBC, CMP, lipase, EKG, cardiac enzymes, CXR Patient will be given NS 1 L bolus and clonidine 1 mg PO and zofran 03/31/17 15:27 Blood pressure improved after clonidine (Marsha Hidalgo) 03/31/17 16:38 Patient Seen With Resident: In agreement with resident note which contains more details about the patient. Patient was seen and evaluated with resident. Came up with plan and treatment together. Patient initially denied chest pain but on re-exam developed chest pain in ED. EKG unremarkable. First card isos unremarkable. She has no active hematemesis noted in ED. Labs reviewed. CV stable. Will admit for cardiac monitoring given significant past cardiac history. (Srinath Valencia) - Lab Interpretations Narrative Lab Interpretation (Text): 03/31/17 15:01 Hgb is 11.5 Troponin is .01 (Marsha Hidalgo) Lab Results: 03/31/17 14:18 03/31/17 14:18 Lab Results 03/31/17 14:18: Sodium 141, Potassium 3.8, Chloride 101, Carbon Dioxide 25, Anion Gap 19, BUN 15, Creatinine 1.2, Est GFR ( Amer) 55, Est GFR (Non- Af Amer) 46, Random Glucose 103, Calcium 9.9, Total Bilirubin 0.3, AST 24, ALT 28, Alkaline Phosphatase 109, Lactate Dehydrogenase 403, Total Creatine Kinase 38, Troponin I < 0.01, Total Protein 7.9, Albumin 4.6, Globulin 3.3, Albumin/ Globulin Ratio 1.4, Lipase 80 03/31/17 14:18: WBC 6.0 D, RBC 4.22, Hgb 11.5 L D, Hct 35.9 L, MCV 85.1, MCH 27.3, MCHC 32.0, RDW 17.1 H, Plt Count 374, MPV 10.1 - RAD Interpretation Narrative RAD Interpretations (Text): 03/31/17 15:23 CXR normal (Karim,Marsha) Radiology Orders: 03/31/17 14:12 CHEST PORTABLE [RAD] Stat - EKG Interpretation EKG Interpretation (Text): 03/31/17 15:01 NSR HR of [address] changes normal axis normal interval (Karim,Marsha) - Medication Orders Current Medication Orders: Discontinued Medications Alprazolam (Xanax) 0.25 mg PO PRN PRN; Protocol PRN Reason: Anxiety Stop: 04/07/17 15:22 Alprazolam (Xanax) 0.25 mg PO DAILY PRN; Protocol PRN Reason: Anxiety Stop: 04/08/17 10:01 Amlodipine Besylate (Norvasc) 5 mg PO DAILY [facility] Last Admin: 04/01/17 10:14 Dose: 5 mg Aspirin (Ecotrin) 81 mg PO DAILY [facility] Last Admin: 04/01/17 09:03 Dose: 81 mg Atorvastatin Calcium (Lipitor) 40 mg PO DIN [facility] Last Admin: 03/31/17 17:57 Dose: 40 mg Clonidine HCl (Catapres) 0.1 mg PO STAT ST[facility] Stop: 03/31/17 14:36 Last Admin: 03/31/17 14:46 Dose: 0.1 mg Clonidine HCl (Catapres) 0.1 mg PO Q6H PRN PRN Reason: Systolic Blood Pressure Famotidine (Pepcid) 40 mg PO HS [facility] Last Admin: 03/31/17 22:11 Dose: 40 mg Fluoxetine HCl (Prozac) 20 mg PO DAILY [facility] Last Admin: 04/01/17 09:05 Dose: 20 mg Heparin Sodium (Porcine) (Heparin) 5,000 units SC Q12 [facility] PRN Reason: Protocol Last Admin: 04/01/17 09:04 Dose: 5,000 units Hydrochlorothiazide (Hydrodiuril) 25 mg PO DAILY [facility] Last Admin: 04/01/17 10:13 Dose: 25 mg Hydroxychloroquine Sulfate (Plaquenil) 400 mg PO DAILY [facility] Last Admin: 04/01/17 10:16 Dose: 400 mg Sodium Chloride (Sodium Chloride 0.9%) 1,000 mls @ 999 mls/hr IV .Q1H1M STA Stop: 03/31/17 15:12 Last Admin: 03/31/17 16:25 Dose: 999 mls/hr Sodium Chloride (Sodium Chloride 0.45%) 1,000 mls @ 40 mls/hr IV .Q24H [facility] Last Admin: 03/31/17 16:27 Dose: 40 mls/hr Sodium Chloride (Sodium Chloride 0.45%) 1,000 mls @ 100 mls/hr IV .Q10H [facility] Last Admin: 04/01/17 10:13 Dose: 100 mls/hr Levothyroxine Sodium (Synthroid) 112 mcg PO ACB [facility] Last Admin: 04/01/17 09:05 Dose: 112 mcg Levothyroxine Sodium (Synthroid) 25 mcg PO ACB [facility] Last Admin: 04/01/17 09:05 Dose: 25 mcg Losartan Potassium (Cozaar) 50 mg PO DAILY [facility] Nitroglycerin (Nitro-Dur 0.4 Mg/Hr Patch) 1 patch TD DAILY [facility] Last Admin: 04/01/17 09:04 Dose: 1 patch Ondansetron HCl (Zofran Inj) 4 mg IVP STAT [facility] Stop: 03/31/17 14:13 Last Admin: 03/31/17 14:32 Dose: 4 mg Ondansetron HCl (Zofran Inj) 4 mg IVP Q4H PRN PRN Reason: Nausea/Vomiting Prasugrel (Effient) 10 mg PO DAILY [facility] Last Admin: 04/01/17 09:04 Dose: 10 mg Tizanidine HCl (Zanaflex) 4 mg PO HS [facility] Last Admin: 03/31/17 22:11 Dose: 4 mg Tramadol HCl (Ultram) 50 mg PO TID PRN PRN Reason: Pain, moderate (4-7) <Marsha Hidalgo - Last Filed: 03/31/17 15:27> - PA / ESTATE TAX EXAMINER / Resident Statement MD/DO has reviewed & agrees with the documentation as recorded. MD/DO has examined the patient and agrees with the treatment plan. - Scribe Statement The provider has reviewed the documentation as recorded by the Scribe <Srinath Valencia - Last Filed: 04/06/17 08:45> - Scribe Statement Bobbi Cartwright Provider Scribe Attestation: All medical record entries made by the Scribe were at my direction and personally dictated by me. I have reviewed the chart and agree that the record accurately reflects my personal performance of the history, physical exam, medical decision making, and the department course for this patient. I have also personally directed, reviewed, and agree with the discharge instructions and disposition. (Srinath Valencia) Disposition/Present on Arrival - Present on Arrival Any Indicators Present on Arrival: No History of DVT/PE: No History of Uncontrolled Diabetes: No Urinary Catheter: No History of Decub. Ulcer: No History Surgical Site Infection Following: None - Disposition Have Diagnosis and Disposition been Completed?: Yes Disposition Time: 15:23 Patient Plan: Admission, Observation <Marsha Hidalgo - Last Filed: 03/31/17 15:27> <Srinath Valencia - Last Filed: 04/06/17 08:45> - Disposition Diagnosis: Vomiting, Epigastric pain Disposition: HOSPITALIZED Patient Problems: Current Active Problems Problem Status Onset Dizziness Acute Hypotension Acute Condition: STABLE
[2017-03-31 14:30] LABS: HEMATOCRIT 35.9 % (36.0-48.0); MEAN CELL VOLUME 85.1 fl (80.0-105.0); MEAN CORPUSCULAR HEMOGLOBIN 27.3 pg (25.0-35.0); MEAN PLATELET VOLUME 10.1 fl (7.0-11.0); RED CELL DISTRIBUTION WIDTH 17.1 % (11.5-14.5)
[2017-03-31 14:38] LABS: ALB/GLOB RATIO 1.4 (1.1-1.8); ALKALINE PHOSPHATASE 109 U/L (38-133); ALT/SGPT 28 U/L (7-56); AST/SGOT 24 U/L (15-39); BILIRUBIN,TOTAL 0.3 mg/dL (0.2-1.3); BLOOD UREA NITROGEN 15 mg/dL (7-21); CALCIUM 9.9 mg/dL (8.4-10.5); CARBON DIOXIDE 25 mmol/L (21-33); CHLORIDE 101 mmol/L (98-107); GFR AFRICAN-AMERICAN 55; GLUCOSE,RANDOM 103 mg/dL (70-110); LIPASE 80 U/L (23-300); POTASSIUM 3.8 mmol/L (3.6-5.0); SODIUM 141 mmol/L (132-148); TOTAL PROTEIN 7.9 g/dL (5.8-8.3)
[2017-03-31 14:50] LABS: TROPONIN I < 0.01 ng/mL
--- NOTE | 2017-03-31 15:19 | RAD ---
HISTORY: shorntess of breath COMPARISON: 03/15/2017 FINDINGS: LUNGS: No active pulmonary disease. PLEURA: No significant pleural effusion identified, no pneumothorax apparent. CARDIOVASCULAR: Normal. OSSEOUS STRUCTURES: No significant abnormalities. VISUALIZED UPPER ABDOMEN: Normal. OTHER FINDINGS: None. IMPRESSION: No active disease.
[2017-03-31 15:27] LABS: PH,URINE 7.5 (4.7-8.0); URINE BILIRUBIN NEGATIVE (NEGATIVE); URINE BLOOD NEGATIVE (NEGATIVE); URINE GLUCOSE (UA) NEGATIVE (NEGATIVE); URINE KETONE NEGATIVE (NEGATIVE); URINE LEUKOCYTE ESTERASE NEGATIVE Leu/uL (NEGATIVE); URINE PROTEIN TRACE mg/dL (<30 mg/dL); URINE UROBILINOGEN 0.2 E.U./dL (<1 E.U./dL)
[2017-03-31 15:29] LABS: URINE APPEARANCE CLEAR (CLEAR); URINE COLOR YELLOW (YELLOW)
[2017-03-31 15:47] LABS: URINE EPITHELIAL CELLS 0 - 2 /hpf (0-5); URINE RBC 0 - 2 /hpf (0-2); URINE WBC 0 - 2 /hpf (0-6)
--- NOTE | 2017-03-31 16:12 | CP.PCM.HP ---
<MitchcaseyGamaliel - Last Filed: 03/31/17 16:31> History of Present Illness - History of Present Illness History of Present Illness: cc: nausea/vomiting HPI: Patient is a 62yo female with past medical history of hypertension, SLE, scleroderma, Phan's esophagus, CKD, CAD s/p multiple stent placement and NSTEMI that presented [place] [facility] [place]/o nausea and vomiting for the past 3 days. Patient reports that she began experiencing epigastric abdominal pain 3 days prior to presentation which was associated with dyspnea on exertion, nausea and nonbilious, nonbloody vomiting. She stated that she had been walking around a supermarket when she began experiencing difficulty breathing and upon returning home had the episodes of vomiting. She reported that eventually her vomiting had appeared bilious in nature and her last episode was today at 8am. Patient stated that her symptoms were similar to her last admission during which she was evaluated by cardiology and gastroenterology and underwent a colonoscopy which revealed diverticulosis, internal hemorrhoids and multiple erosions ( refer to full report). On todays admission, CXR revealed no active disease and EKG showed normal sinus rhythm with no acute ST-T wave changes. She was admitted to telemetry for further workup. Denied chest pain, palpitations, fever , chills, cough, focal weakness, numbness, tingling, dysuria, frequency, urgency , recent travel, non-compliance with medications. 12point ROS as per HPI above, otherwise negative PMHx: HTN, SLE, Scleroderma, Phan's Esophagus, CKD, CAD, and NSTEMI PSHx: 7 coronary stents placed, most recently in May Family History: Father -CVA Social History: Denies tobacco, alcohol or illicit drug use Allergies: chicken derived Medications: reviewed and as per chart PMD: Dr. Hayward Present on Admission - Present on Admission Any Indicators Present on Admission: No Past Patient History - Infectious Disease Hx of Infectious Diseases: None - Tetanus Immunizations Tetanus Immunization: Unknown - Past Social History Smoking Status: Never Smoked - CARDIAC Hx Hypertension: Yes Hx Pacemaker: No - PULMONARY Hx Respiratory Disorders: Yes - NEUROLOGICAL Hx Paralysis: No - HEENT Hx HEENT Problems: Yes (eyeglasses) - RENAL Hx Kidney Stones: Yes - ENDOCRINE/METABOLIC Hx Hyperthyroidism: Yes Hx Hypothyroidism: Yes - HEMATOLOGICAL/ONCOLOGICAL Hx Blood Transfusions: Yes (2013) Hx Blood Transfusion Reaction: No - INTEGUMENTARY Hx Dermatological Problems: No - MUSCULOSKELETAL/RHEUMATOLOGICAL Hx Musculoskeletal Disorders: Yes (SCLERODERMA - LUPUS) - GASTROINTESTINAL Hx Gastroesophageal Reflux: Yes - GENITOURINARY/GYNECOLOGICAL Other/Comment: c-sections, breast self examination - PSYCHIATRIC Hx Emotional Abuse: No Hx Physical Abuse: No Hx Substance Use: No - SURGICAL HISTORY Hx Cardiac Catheterization: Yes - ANESTHESIA Hx Anesthesia Reactions: No Hx Malignant Hyperthermia: No Meds Allergies/Adverse Reactions: Allergies Allergy/AdvReac Type Severity Reaction Status Date / Time chicken derived Allergy Severe ANAPHYLAXIS Verified 03/31/17 13:59 Physical Exam - Constitutional Appears: Non-toxic, No Acute Distress - Head Exam Head Exam: ATRAUMATIC, NORMAL INSPECTION, NORMOCEPHALIC - Eye Exam Eye Exam: EOMI, PERRL - ENT Exam ENT Exam: Mucous Membranes Moist - Neck Exam Neck exam: Positive for: Normal Inspection. Negative for: Lymphadenopathy, Tenderness, Thyromegaly - Respiratory Exam Respiratory Exam: Clear to Auscultation Bilateral. absent: Rhonchi, Wheezes - Cardiovascular Exam Cardiovascular Exam: RRR, +S1, +S2. absent: Gallop, JVD, Rubs - GI/Abdominal Exam GI & Abdominal Exam: Soft, Tenderness (mild epigastric abdominal pain). absent : Distended, Firm, Rebound - Extremities Exam Extremities exam: Positive for: normal inspection. Negative for: pedal edema, tenderness - Neurological Exam Neurological exam: Alert, CN II-XII Intact, Oriented x3 - Psychiatric Exam Psychiatric exam: Normal Affect, Normal Mood - Skin Skin Exam: Dry, Intact, Normal Color, Warm Results - Vital Signs Recent Vital Signs: Last Vital Signs Temp 98.1 F 03/31/17 14:03 Pulse 66 03/31/17 15:25 Resp 18 03/31/17 15:25 BP 160/97 H 03/31/17 15:25 Pulse Ox 100 03/31/17 15:25 - Labs Result Diagrams: 03/31/17 14:18 03/31/17 14:18 Labs: Laboratory Results - last 24 hr 03/31/17 03/31/17 03/31/17 14:18 14:18 15:17 WBC 6.0 D RBC 4.22 Hgb 11.5 L D Hct 35.9 L MCV 85.1 MCH 27.3 MCHC 32.0 RDW 17.1 H Plt Count 374 MPV 10.1 Sodium 141 Potassium 3.8 Chloride 101 Carbon Dioxide 25 Anion Gap 19 BUN 15 Creatinine 1.2 Est GFR ( Amer) 55 Est GFR (Non-Af Amer) 46 Random Glucose 103 Calcium 9.9 Total Bilirubin 0.3 AST 24 ALT 28 Alkaline Phosphatase 109 Lactate Dehydrogenase 403 Total Creatine Kinase 38 Troponin I < 0.01 Total Protein 7.9 Albumin 4.6 Globulin 3.3 Albumin/Globulin Ratio 1.4 Lipase 80 Urine Color Yellow Urine Appearance Clear Urine pH 7.5 Ur Specific [place] 1.010 Urine Protein Trace H Urine Glucose (UA) Negative Urine Ketones Negative Urine Blood Negative Urine Nitrate Negative Urine Bilirubin Negative Urine Urobilinogen 0.2 Ur Leukocyte Esterase Negative Urine RBC 0 - 2 Urine WBC 0 - 2 Ur Epithelial Cells 0 - 2 Assessment & Plan - Assessment and Plan (Free Text) Assessment: 62yo female with history of HTN, SLE, Scleroderma, Phan's Esophagus, CKD, CAD , and NSTEMI presented to the ED c/o intractable nausea/vomiting as well as dyspnea on exertion Plan: 1. Intractable nausea/vomiting -No overt source of bleeding at this time; H/H within normal limits -Conservative management with zofran, pepcid and IVF hydration -NPO for now, will advance as tolerated -Reviewed recent colonoscopy report which revealed diverticulosis, internal hemorrhoids and multiple erosions (see full report) -Reviewed most recent endoscopy report which revealed barretts esophagus with no ulcers (see full report) -GI consulted - Dr. Rodriguez 2. Hypertensive urgency -Patient given clonidine 0.1mg PO stat dose in the ED upon which patient's blood pressure improved significantly -Continue with clonidine 0.1mg PO q6h PRN for SBP > 160 or DBP > 100; hold otherwise -Resumed home antihypertensive medications -telemetry monitoring -Echocardiogram pending -cardiology consulted - Dr. Morgan 3. CKD -BUN/Cr at baseline, will continue to monitor -Will avoid nephrotoxic medications and renally adjust medications as indicated 4. CAD -Multiple stents placed with most recent stenting in May 2016 with a stent placed in the LAD -Continue with effient as per cardiology recommendations -Continue with ASA, lipitor 5. History of SLE -cont home hydroxychloroquine 6. Hypothyroidism -Continue home synthyroid -TSH pending 7. GI/DVT Prophylaxis -Pepcid/heparin Patient seen and case discussed with attending, Dr. Fox - Date & Time Date: 03/31/17 Time: 16:16 <Carlos Fox - Last Filed: 03/31/17 17:04> Results - Vital Signs Recent Vital Signs: Last Vital Signs Temp 98.1 F 03/31/17 14:03 Pulse 66 03/31/17 15:25 Resp 18 03/31/17 15:25 BP 160/97 H 03/31/17 15:25 Pulse Ox 100 03/31/17 15:25 - Labs Result Diagrams: 03/31/17 14:18 03/31/17 14:18 Labs: Laboratory Results - last 24 hr 03/31/17 15:17 Urine Color Yellow Urine Appearance Clear Urine pH 7.5 Ur Specific [place] 1.010 Urine Protein Trace H Urine Glucose (UA) Negative Urine Ketones Negative Urine Blood Negative Urine Nitrate Negative Urine Bilirubin Negative Urine Urobilinogen 0.2 Ur Leukocyte Esterase Negative Urine RBC 0 - 2 Urine WBC 0 - 2 Ur Epithelial Cells 0 - 2 Assessment & Plan - Assessment and Plan (Free Text) Plan: discussed w/ resident er dr solano examed went over labs tests made npo iv fluids checking tpn cardio gi eval observation hopefully if ok d/c tomorrow
[2017-03-31] MEDS ORDERED: Sodium Chloride 0.45% 1,000 ML IV SCH (16:15)
[2017-03-31] MEDS ORDERED: Doxepin HCL 10 mg/mL ORAL SOLUTION PO SCH (22:00)
[2017-03-31] MEDS ORDERED: DOXEPIN HCL 10 MG PO SCH (22:00)
[2017-03-31] MEDS ORDERED: TIZANIDINE HCL 4 MG PO SCH (22:00)
[2017-03-31 23:21] VITALS: RESP 20
[2017-04-01 04:24] LABS: BASO # 0.02 K/mm3 (0.0-2.0); BASO % 0.4 % (0.0-3.0); EOS # 0.1 (0.0-0.7); EOS % 1.5 % (1.5-5.0); GRAN # 2.33 (1.4-6.5); GRAN % 49.5 % (50.0-68.0); HEMATOCRIT 31.7 % (36.0-48.0); LYMPH # 1.7 (1.2-3.4); LYMPH % 36.3 % (22.0-35.0); MEAN CELL VOLUME 87.6 fl (80.0-105.0); MEAN CORPUSCULAR HEMOGLOBIN 26.5 pg (25.0-35.0); MEAN CORPUSCULAR HGB CONC 30.3 g/dl (31.0-37.0); MEAN PLATELET VOLUME 9.7 fl (7.0-11.0); MONO # 0.6 (0.1-0.6); MONO % 12.3 % (1.0-6.0); RED CELL DISTRIBUTION WIDTH 17.5 % (11.5-14.5); WHITE BLOOD COUNT 4.7 10^3/ul (4.5-11.0)
[2017-04-01 04:39] LABS: ALB/GLOB RATIO 1.3 (1.1-1.8); BILIRUBIN,TOTAL 0.3 mg/dL (0.2-1.3); CALCIUM 9.2 mg/dL (8.4-10.5); MAGNESIUM 2.2 mg/dL (1.7-2.2); PHOSPHOROUS 4.1 mg/dL (2.5-4.5); POTASSIUM 4.3 mmol/L (3.6-5.0); TOTAL PROTEIN 6.4 g/dL (5.8-8.3)
[2017-04-01 04:48] LABS: IRON 39 ug/dL (45-180)
[2017-04-01 06:27] VITALS: O2SAT 97
[2017-04-01] MEDS ORDERED: Levothyroxine 25 MCG TAB PO SCH (07:30)
[2017-04-01] MEDS ORDERED: Levothyroxine 112 MCG TAB PO SCH ×2 (07:30→10:00)
[2017-04-01] MEDS ORDERED: Sodium Chloride 0.45% 1,000 ML IV SCH (09:36)
[2017-04-01] MEDS ORDERED: Non Formulary Medication (Valsartan [Diovan] 80 MG) PO SCH (10:00)
[2017-04-01] MEDS ORDERED: Nitroglycerin 0.4 mg/hr Top Patch TD SCH (10:00)
[2017-04-01 10:47] LABS: TROPONIN I < 0.01 ng/mL
--- NOTE | 2017-04-01 11:00 | CARD ---
APPROVED REPORT EKG Measurement Heart [id number] <Conclusion> Normal sinus rhythm Normal ECG
[2017-04-01 12:21] VITALS: BP 108/58; PULSE 55; TEMP 98.2
--- NOTE | 2017-04-02 06:24 | CP.PCM.CON ---
History of Present Illness - History of Present Illness History of Present Illness: 62-year-old patient with a long history of breast scleroderma, lupus long segment Phan's esophagus who was recently in the hospital with coronary artery disease,, a deficiency anemia at endoscopy done diagnostic positive mild nonspecific small erosions in the colon. No biopsies were done as the patient was on effient. Last EGD was in January 06. Found to have a large hiatus hernia measuring about 3 cm and a long segment Phan's of 6 cm. No ulceration or nodularity noticed in the Phan's. Patient had stent placement in 2015. The plan was to consider repeat EGD and biopsy for Phan's surveillance was the patient's Effient could be stopped for 5-7 days. this was discussed with the patient's psychiatry teacher Dr. Morgan during her previous hospitalization. Patient has poor dentition with dentist does not want to do any intervention at the patient was on Effient. Patient still is not very compliant with the diet. Patient has significant motility dysfunction with dilated esophagus. Patient was strictly advised to take only pured food. 3 days before the admission patient went out with friends and ate some pizza and this started after that. She also feels that she may have startedafter that. His symptoms got progressively worse and came to the emergency room Complaints of lower chest pain did have episodes of coffee-ground vomitus. No melena or bright red blood per rectum PMHx: HTN, SLE, Scleroderma, Phan's Esophagus, CKD, CAD, and NSTEMI PSHx: 7 coronary stents placed, most recently in May Family History: Father -CVA Social History: Denies tobacco, alcohol or illicit drug use Allergies: chicken derived Medications: reviewed and as per chart REVIEW OF SYSTEMS other systems reviewed negative except as above Review of Systems - Review of Systems All systems: reviewed and no additional remarkable complaints except - Constitutional Constitutional: As Per HPI - Cardiovascular Cardiovascular: Chest Pain. absent: Palpitations - Respiratory Respiratory: absent: Cough, Wheezing - Gastrointestinal Gastrointestinal: As Per HPI - Genitourinary Genitourinary: absent: Dysuria, Urinary Frequency Past Patient History - Infectious Disease Hx of Infectious Diseases: None - Tetanus Immunizations Tetanus Immunization: Unknown - Past Social History Smoking Status: Never Smoked - CARDIAC Hx Cardiac Disorders: Yes Hx Hypercholesterolemia: Yes Hx Hypertension: Yes - PULMONARY Hx Bronchitis: Yes - NEUROLOGICAL Hx Paralysis: No - HEENT Hx Difficulty Chewing: Yes - RENAL Hx Kidney Stones: Yes - ENDOCRINE/METABOLIC Hx Hypothyroidism: Yes - HEMATOLOGICAL/ONCOLOGICAL Hx Anemia: Yes - INTEGUMENTARY Hx Dermatological Problems: No - MUSCULOSKELETAL/RHEUMATOLOGICAL Hx Falls: Yes - GASTROINTESTINAL Hx Gastrointestinal Disorders: Yes HX Swallowing Problems: Yes (patient states that she has difficulty swallowing) - GENITOURINARY/GYNECOLOGICAL Other/Comment: c-sections, breast self examination - PSYCHIATRIC Hx Substance Use: No - SURGICAL HISTORY Hx Cholecystectomy: Yes Hx Coronary Stent: Yes (x3) - ANESTHESIA Hx Anesthesia Reactions: No Hx Malignant Hyperthermia: No Meds Allergies/Adverse Reactions: Allergies Allergy/AdvReac Type Severity Reaction Status Date / Time chicken derived Allergy Severe ANAPHYLAXIS Verified 03/31/17 13:59 Physical Exam - Head Exam Head Exam: ATRAUMATIC, NORMOCEPHALIC - Eye Exam Eye Exam: EOMI, PERRL - ENT Exam ENT Exam: Mucous Membranes Moist Additional comments: poor dentition, no molars - Neck Exam Neck exam: Positive for: Full Rom, Normal Inspection. Negative for: Lymphadenopathy - Respiratory Exam Respiratory Exam: Clear to Auscultation Bilateral. absent: Rales, Rhonchi - Cardiovascular Exam Cardiovascular Exam: REGULAR RHYTHM, +S1, +S2. absent: JVD - GI/Abdominal Exam GI & Abdominal Exam: Normal Bowel Sounds, Soft. absent: Mass, Tenderness - Extremities Exam Extremities exam: Positive for: full ROM. Negative for: calf tenderness, tenderness - Neurological Exam Neurological exam: Alert, Oriented x3 - Psychiatric Exam Psychiatric exam: Normal Affect - Skin Skin Exam: Intact, Normal Color Results - Vital Signs Recent Vital Signs: Last Vital Signs Temp 98.2 F 04/01/17 12:00 Pulse 55 L 04/01/17 12:00 Resp 20 04/01/17 12:00 BP 108/58 L 04/01/17 12:00 Pulse Ox 97 04/01/17 06:00 - Labs Result Diagrams: 04/01/17 04:10 04/01/17 04:10 Labs: Laboratory Results - last 24 hr 04/01/17 04/01/17 04/01/17 04:10 04:10 04:10 WBC 4.7 D RBC 3.62 Hgb 9.6 L Hct 31.7 L MCV 87.6 MCH 26.5 MCHC 30.3 L RDW 17.5 H Plt Count 263 MPV 9.7 Gran % 49.5 L Lymph % (Auto) 36.3 H [place] % (Auto) 12.3 H Eos % (Auto) 1.5 Baso % (Auto) 0.4 Gran # 2.33 Lymph # 1.7 Ferry # 0.6 Eos # 0.1 Baso # 0.02 Sodium 141 Potassium 4.3 Chloride 103 Carbon Dioxide 29 Anion Gap 13 BUN 19 Creatinine 1.9 H Est GFR ( Amer) 33 Est GFR (Non-Af Amer) 27 Random Glucose 88 Calcium 9.2 Phosphorus 4.1 Magnesium 2.2 Iron TIBC % Saturation Total Bilirubin 0.3 AST 30 ALT 29 Alkaline Phosphatase 76 Lactate Dehydrogenase Total Creatine Kinase Troponin I < 0.01 Total Protein 6.4 Albumin 3.6 Globulin 2.8 Albumin/Globulin Ratio 1.3 04/01/17 04/01/17 04:10 10:00 WBC RBC Hgb Hct MCV MCH MCHC RDW Plt Count MPV Gran % Lymph % (Auto) [place]erry % (Auto) Eos % (Auto) Baso % (Auto) Gran # Lymph # Ferry # Eos # Baso # Sodium Potassium Chloride Carbon Dioxide Anion Gap BUN Creatinine Est GFR ( Amer) Est GFR (Non-Af Amer) Random Glucose Calcium Phosphorus Magnesium Iron 39 L TIBC 264 L % Saturation 15 L Total Bilirubin AST ALT Alkaline Phosphatase Lactate Dehydrogenase 312 L Total Creatine Kinase 44 Troponin I < 0.01 Total Protein Albumin Globulin Albumin/Globulin Ratio Assessment & Plan - Assessment and Plan (Free Text) Assessment: this 62-year-old patient admitted with the Atypical chest pain and epigastric discomfort and coffee-ground vomitus She has h/o coronary artery disease, long segment Phan's esophagus, esophageal motility dysfunction Patient had a poor dentition did not chew food well before this onset of the symptoms. This could be partly contributory factor. The presence of a bezoar would've triggered the episode. She was advised to take only pured food She Would benefit from repeat endoscopy given elevation and biopsy the Phan' s for surveillance. Patient is still effient. The plan is to follow the hemoglobin closely. If any significant drop we will onsider diagnostic push enteroscopy. Patient is planned to be discharged today . she an appointment to follow up with the bootmaker. Patient was advised to call after seen by bootmaker Dr Catalan with the repeat hemoglobin. If the hemoglobin shows a downward trend we will onsider diagnostic push enteroscopy. Otherwise we will wait for repeating the endoscopy evaluation in May when effient and can be stopped for a few days for biopsy evaluation thank you very much for allowing us to participate in the care of the patient - Date & Time Date: 04/01/17 Time: 11:00
--- NOTE | 2017-04-02 09:48 | DS ---
HISTORY OF PRESENT ILLNESS: Rosa Maria is resting comfortably in bed. She slept well. She is hungry this morning. She is in good spirits, and no more chest pain or abdominal pain. No more black stools. PHYSICAL EXAMINATION: VITAL SIGNS: 98.4 temperature, 50 pulse, 95/66 blood pressure, 20 respiratory rate, 97% O2 on sat room air. HEENT: Head atraumatic, normocephalic. Throat moist. NECK: Supple. HEART: Regular rate. LUNGS: Clear to auscultation. ABDOMEN: Soft, nontender. Positive bowel sounds. EXTREMITIES: No edema. MEDICATIONS: She can go home on the medications that she came in with, nothing new. She will be on tramadol, HydroDIURIL, Norvasc, Diovan, tizanidine, Effient, nitroglycerin patch, Synthroid, hydroxychloroquine, Prozac, doxepin, Dexilant, calcium, aspirin and Xanax. LABORATORY DATA: Showed 4.7 white count, 9.6 hemoglobin, 31.7 hematocrit, and 263 platelets. Sodium 141, potassium 4.3, BUN is 19, and creatinine 1.9 which jumped up a little bit, I am not sure why. Her calcium is 9.2, phosphorus 4.1, magnesium 2.2, iron is 39, total iron binding capacity is 264. AST is 30, ALT is 29, alk phos 76. All the troponins are less than 0.01, she is came in for chest pain. Total protein 6.4. Urine is clean. She was seen by cardiology, said she can be discharged if GI patient has an appointment this week with GI. She has an appointment this week with Hematology and she will see Dr. Hayward this week. She is going to be discharged today after lunch. She was going to put on iron, but she told me not to, she wants to await and see what the oxygen equipment aide said first. I believe the drop of hemoglobin was from the IV fluids at 100 mL an hour. I will repeat a blood test in the outpatient for the kidney, renal insufficiency that is new. To drink more water when she is goes home. This is discharge summary for Rosa Maria Duque who came in with chest pain, which started more epigastric pain and to be followed up on the outpatient. Carlos Fox DO [facility] # [id number] TIARRA
--- NOTE | 2017-04-02 13:41 | CON ---
DATE: 04/01/2017 CONSULT SERVICE: Cardiology. COVERING DOCTOR: Dr. Reese Morgan. REASON FOR THE CONSULTATION: Epigastric pain, history of coronary artery disease, admitted with nausea and vomiting. BRIEF CLINICAL HISTORY: This is a 62-year-old female with past medical history significant for coronary artery disease status post PTCA stent, admitted with nausea and bilious vomiting and epigastric tenderness. Came to the emergency room. Denies any chest pain. Denies any shortness of breath. Denies any palpitations, but felt epigastric pain with a tenderness followed by vomiting, but after that no further episode of chest pain noted. PAST MEDICAL HISTORY: Significant for PTCA; coronary artery disease, status post stent twice, last one in 05/2016; history of totally chronic occluded RCA; also history of hypertension; hyperlipidemia; history of lupus, SLE. Recent cardiac workup as follows; the patient's last cardiac catheterization on 05/25/2016 where the patient had PTCA of LAD done and artery was found to be totally chronic occluded. Last echocardiography on 05/19/2016, showed good LV function, dilated mild TR, mild pulmonary hypertension. The patient also has history of chronic kidney disease, history GI bleed, history of Phan's esophagus. FAMILY HISTORY: CVA. SOCIAL HISTORY: Denies smoking. Denies any history of alcohol abuse. ALLERGIES: CHICKEN DERIVED PRODUCTS. CURRENT MEDICATIONS: The patient is taking at home tramadol, hydrochlorothiazide, amlodipine, Diovan, Effient, nitroglycerin, levothyroxine, Plaquenil for SLE, Prozac, Dexilant, and Xanax. REVIEW OF SYSTEMS: As per HPI. PHYSICAL EXAMINATION: VITAL SIGNS: Temperature afebrile, heart rate 50, and blood pressure 108/58. HEENT: PERRLA. Extraocular muscles are intact. NECK: Supple. No carotid bruit or thyromegaly. CHEST: Clear to auscultation. HEART: S1 and S2 regular. ABDOMEN: Soft. EXTREMITIES: Clubbing and cyanosis negative. LABORATORY DATA: Blood workup as follows; WBC 4.2, hemoglobin 9.7, hematocrit 31.7, platelet count 263. Chemistries showed sodium 141, potassium 4.3, chloride 103, carbon dioxide 29, anion gap of 13, BUN 19, and creatinine 1.9. Troponin 0.01 x3 negative. EKG showed normal sinus rhythm at 69. IMPRESSION: Gastrointestinal bleed and tenderness in the epigastrium, so far no evidence of acute coronary syndrome. No evidence of acute myocardial infarction. Troponin remains flat. History of coronary artery disease. History of multiple stents, last intervention in 05/2016 in left anterior descending artery, prior to that the patient had multiple stents, preserved left ventricular function by echo. RECOMMENDATIONS: Continue to monitor H and H. So far no evidence of IN. We will follow with you. If H and H remained stable, the patient can be discharged; otherwise, we will transfer care on Sunday to Dr. Reese Morgan. We will follow with you. Thank you Dr. Fox/ for providing me the opportunity in taking care of the patient, Rosa Maria Duque. Jamarcus Ag MD
== END 2017-04-01 13:06 | disposition home or self-care (01) ==
LOC: ED 13:52 → ERH 15:06 → 2RNO 21:22
PROVIDERS: ADMIT Internal Medicine; ATTEND Internal Medicine
DX: I16.0 Hypertensive urgency (principal); R07.9 Chest pain, unspecified; M34.9 Systemic sclerosis, unspecified; K22.70 Barrett's esophagus without dysplasia; I25.10 Atherosclerotic heart disease of native coronary artery without angina pectoris; D53.9 Nutritional anemia, unspecified; E03.9 Hypothyroidism, unspecified; E78.00 Pure hypercholesterolemia, unspecified; E78.5 Hyperlipidemia, unspecified; I12.9 Hypertensive chronic kidney disease with stage 1 through stage 4 chronic kidney disease, or unspecified chronic kidney disease; N18.9 Chronic kidney disease, unspecified; I25.2 Old myocardial infarction; I27.2 Other secondary pulmonary hypertension; K21.9 Gastro-esophageal reflux disease without esophagitis; K22.4 Dyskinesia of esophagus; K22.8 Other specified diseases of esophagus; K44.9 Diaphragmatic hernia without obstruction or gangrene; K92.2 Gastrointestinal hemorrhage, unspecified; M32.9 Systemic lupus erythematosus, unspecified; Z79.82 Long term (current) use of aspirin; Z79.899 Other long term (current) drug therapy; Z87.442 Personal history of urinary calculi; Z90.49 Acquired absence of other specified parts of digestive tract; Z95.5 Presence of coronary angioplasty implant and graft; Z82.3 Family history of stroke; Z91.018 Allergy to other foods; Z87.892 Personal history of anaphylaxis; R40.2412 Glasgow coma scale score 13-15, at arrival to emergency department; K63.3 Ulcer of intestine
CPT/HCPCS: 36415; 71010; 80053; 81001; 82550; 83540; 83550; 83615; 83690; 83735; 83880; 84100; 84443; 84484; 85025; 85027; 93005; 96361; 96372; 96374; 99285; G0378; J1644; J2405; J7030; J7040

== ENCOUNTER 2017-04-03 13:17 | Inpatient (IN) | payer MEDICARE, MEDICAID ==
[2017-04-03] MEDS ORDERED: Sodium Chloride 0.9% 1,000 ML IV STA (13:45)
--- NOTE | 2017-04-03 13:47 | ED PDOC ---
Arrival/HPI - General Chief Complaint: Dizziness/Lightheaded Time Seen by Provider: 04/03/17 13:40 Historian: Patient - History of Present Illness Narrative History of Present Illness (Text): 04/03/17 13:45 A 62 year old female, whose past medical history includes hypertension, hyperlipidemia, hypothyroidism, SLE, scleroderma, Phan's esophagus, DKA, CKD and CAD with multiple stent placement, presents to the emergency department complaining of dizziness since today. Patient was seen by PMD who found patient pale and hypotensive, and instructed patient to come to the emergency room for further evaluation. Patient denies any fever, chills, nausea, vomiting, loss of appetite, diarrhea, abdominal pain, chest pain, shortness of breath, headache or any other complaints. Patient recently discharged from the hospital. She reports questionable iron deficiency and states she has a scheduled appointment to test bone marrow. PMD: Dr. Hayward Time/Duration: Other (today) Symptom Course: Unchanged Quality: Other Context: Other Past Medical History - Provider Review Nursing Documentation Reviewed: Yes - Infectious Disease Hx of Infectious Diseases: None - Tetanus Immunization Tetanus Immunization: Unknown - Cardiac Hx Cardiac Disorders: Yes Hx Hypertension: Yes - Pulmonary Hx Respiratory Disorders: Yes Hx Bronchitis: Yes - Neurological Hx Neurological Disorder: No Hx Paralysis: No - HEENT Hx HEENT Disorder: Yes Hx Difficulty Chewing: Yes - Renal Hx Renal Disorder: Yes Hx Kidney Stones: Yes - Endocrine/Metabolic Hx Endocrine Disorders: Yes Hx Hypothyroidism: Yes - Hematological/Oncological Hx Blood Disorders: Yes Hx Anemia: Yes Hx Blood Transfusions: Yes - Integumentary Hx Dermatological Disorder: No - Musculoskeletal/Rheumatological Hx Musculoskeletal Disorders: Yes Hx Falls: Yes - Gastrointestinal Hx Gastrointestinal Disorders: Yes HX Swallowing Problems: Yes (patient states that she has difficulty swallowing) - Genitourinary/Gynecological Hx Genitourinary Disorders: No Other/Comment: c-sections, breast self examination - Psychiatric Hx Psychophysiologic Disorder: No Hx Emotional Abuse: No Hx Physical Abuse: No Hx Substance Use: No - Past Surgical History Past Surgical History: No Previous - Surgical History Hx Cholecystectomy: Yes Hx Coronary Stent: Yes (x3) - Anesthesia Hx Anesthesia Reactions: No Hx Malignant Hyperthermia: No - Suicidal Assessment Feels Threatened In Home Enviroment: No Family/Social History - Physician Review Nursing Documentation Reviewed: Yes Family/Social History: No Known Family HX Smoking Status: Never Smoked Hx Alcohol Use: No Hx Substance Use: No Hx Substance Use Treatment: No Allergies/Home Meds Allergies/Adverse Reactions: Allergies chicken derived Allergy (Severe, Verified 04/03/17 13:31) ANAPHYLAXIS Home Medications: Home Meds Medication Instructions Recorded Confirmed Atorvastatin Calcium 40 mg PO DAILY 03/15/17 04/03/17 Levothyroxine [Synthroid] 150 mcg PO DAILY 03/15/17 04/03/17 Prasugrel [Effient] 10 mg PO DAILY 03/15/17 04/03/17 Valsartan [Diovan] 160 mg PO DAILY 03/15/17 04/03/17 Metoprolol Tartrate [Lopressor] 25 mg PO BID 04/03/17 04/03/17 Review of Systems - Physician Review All systems were reviewed & negative as marked: Yes - Review of Systems Constitutional: absent: Fevers, Night Sweats Respiratory: absent: SOB Cardiovascular: absent: Chest Pain Gastrointestinal: absent: Abdominal Pain, Diarrhea, Nausea, Vomiting, Appetite Changes Neurological: Dizziness. absent: Headache Physical Exam Vital Signs Reviewed: Yes Vital Signs Temp Pulse Resp BP Pulse Ox 04/03/17 15:50 59 L 14 90/67 L 100 04/03/17 14:36 64 16 89/40 L 98 04/03/17 13:31 98 F 75 16 84/69 L 98 Temperature: Afebrile Blood Pressure: Hypotensive Pulse: Regular Respiratory Rate: Normal Appearance: Positive for: Non-Toxic, Comfortable, Other (pale) Pain Distress: None Mental Status: Positive for: Alert and Oriented X 3 - Systems Exam Head: Present: Atraumatic, Normocephalic Pupils: Present: PERRL Extroacular Muscles: Present: EOMI Conjunctiva: Present: Normal Mouth: Present: Moist Mucous Membranes Pharnyx: No: ERYTHEMA, EXUDATE, TONSILS ENLARGED Neck: Present: Normal Range of Motion Respiratory/Chest: Present: Clear to Auscultation, Good Air Exchange. No: Respiratory Distress, Accessory Muscle Use Cardiovascular: Present: Regular Rate and Rhythm, Normal S1, S2. No: Murmurs Abdomen: Present: Normal Bowel Sounds. No: Tenderness, Distention, Peritoneal Signs Back: Present: Normal Inspection Upper Extremity: Present: Normal Inspection. No: Cyanosis, Edema Lower Extremity: Present: Normal Inspection. No: Edema Neurological: Present: GCS=15, CN II-XII Intact, Speech Normal Skin: Present: Warm, Dry, Pale. No: Rashes Psychiatric: Present: Alert, Oriented x 3, Normal Insight, Normal Concentration Medical Decision Making ED Course and Treatment: 04/03/17 13:45 Impression: A 62 year old female sent by PMD for dizziness. Plan: -- Chest xray -- Labs -- IV fluids -- Reassess and disposition Prior Visits: Notes and results from previous visits were reviewed. Patient had a colonoscopy which showed diverticulitis and hemorrhoids. Progress Notes: EKG shows NSR at 69 BPM with sinus arrhythmia, no ST/T changes. Interpreted by me. Report Date : 04/03/2017 14:19:18 Procedure: Chest xray Dictator : Jamilah Slade V. IMPRESSION: No acute cardiopulmonary pathology 04/03/17 14:46 Labs grossly normal. BP improving somewhat after IVF. Case discussed with Dr. Hayward, who states to admit patient to observation telemetry for IV hydration. - Lab Interpretations Lab Results: 04/03/17 13:55 04/03/17 13:55 Lab Results 04/03/17 13:55: Blood Type O NEGATIVE, Antibody Screen Negative, BBK History Checked Patient has bt 04/03/17 13:55: PT 11.3, INR 1.05, APTT 29.0 04/03/17 13:55: Sodium 140, Potassium 4.4, Chloride 102, Carbon Dioxide 26, Anion Gap 16, BUN 23 H, Creatinine 2.0 H, Est GFR ( Amer) 31, Est GFR ( Non-Af Amer) 25, Random Glucose 105, Calcium 9.5, Phosphorus 4.0, Magnesium 2.2 , Total Bilirubin 0.2, AST 34, ALT 27, Alkaline Phosphatase 75, Total Creatine Kinase 47, Troponin I < 0.01, Total Protein 7.1, Albumin 4.3, Globulin 2.9, Albumin/Globulin Ratio 1.5 04/03/17 13:55: WBC 4.7, RBC 3.76, Hgb 10.3 L, Hct 32.7 L, MCV 87.0, MCH 27.4, MCHC 31.5, RDW 17.8 H, Plt Count 334, MPV 10.1, Gran % 62.4, Lymph % (Auto) 27.9 , [place] % (Auto) 7.8 H, Eos % (Auto) 1.3 L, Baso % (Auto) 0.6, Gran # 2.95, Lymph # 1.3, [place] # 0.4, Eos # 0.1, Baso # 0.03 I have reviewed the lab results: Yes - RAD Interpretation Radiology Orders: 04/03/17 13:49 CHEST PORTABLE [RAD] Stat - Medication Orders Current Medication Orders: Sodium Chloride (Sodium Chloride 0.9%) 1,000 mls @ 100 mls/hr IV .Q10H MADI Discontinued Medications Sodium Chloride (Sodium Chloride 0.9%) 1,000 mls @ 999 mls/hr IV .Q1H1M STA Stop: 04/03/17 14:45 Last Admin: 04/03/17 14:11 Dose: 999 mls/hr Sodium Chloride (Sodium Chloride 0.9%) 1,000 mls @ 999 mls/hr IV .Q1H1M STA Stop: 04/03/17 15:17 - Scribe Statement The provider has reviewed the documentation as recorded by the Nava Perera Provider Scribe Attestation: All medical record entries made by the Scribe were at my direction and personally dictated by me. I have reviewed the chart and agree that the record accurately reflects my personal performance of the history, physical exam, medical decision making, and the department course for this patient. I have also personally directed, reviewed, and agree with the discharge instructions and disposition. Disposition/Present on Arrival - Present on Arrival Any Indicators Present on Arrival: No History of DVT/PE: No History of Uncontrolled Diabetes: No Urinary Catheter: No History of Decub. Ulcer: No History Surgical Site Infection Following: None - Disposition Have Diagnosis and Disposition been Completed?: Yes Diagnosis: Dizziness, Hypotension Disposition: HOSPITALIZED Disposition Time: 13:31 Patient Plan: Admission Condition: FAIR
[2017-04-03 14:10] LABS: BASO # 0.03 K/mm3 (0.0-2.0); BASO % 0.6 % (0.0-3.0); EOS # 0.1 (0.0-0.7); EOS % 1.3 % (1.5-5.0); GRAN # 2.95 (1.4-6.5); GRAN % 62.4 % (50.0-68.0); HEMATOCRIT 32.7 % (36.0-48.0); LYMPH # 1.3 (1.2-3.4); LYMPH % 27.9 % (22.0-35.0); MEAN CORPUSCULAR HEMOGLOBIN 27.4 pg (25.0-35.0); MEAN CORPUSCULAR HGB CONC 31.5 g/dl (31.0-37.0); MEAN PLATELET VOLUME 10.1 fl (7.0-11.0); MONO # 0.4 (0.1-0.6); MONO % 7.8 % (1.0-6.0); RED CELL DISTRIBUTION WIDTH 17.8 % (11.5-14.5); WHITE BLOOD COUNT 4.7 10^3/ul (4.5-11.0)
[2017-04-03 14:20] LABS: INR 1.05 (0.93-1.08)
--- NOTE | 2017-04-03 14:20 | RAD ---
HISTORY: dizziness COMPARISON: 03/31/2017 FINDINGS: LUNGS: Bilateral hyperaeration probably relating to background COPD emphysema is suggested. No interval infiltrate PLEURA: No significant pleural effusion identified, no pneumothorax apparent. CARDIOVASCULAR: Normal. OSSEOUS STRUCTURES: Anterior cervical hardware fusion noted VISUALIZED UPPER ABDOMEN: Cholecystectomy clip right upper quadrant OTHER FINDINGS: None. IMPRESSION: No acute cardiopulmonary pathology
[2017-04-03 14:21] LABS: ALB/GLOB RATIO 1.5 (1.1-1.8); ALKALINE PHOSPHATASE 75 U/L (38-133); ALT/SGPT 27 U/L (7-56); AST/SGOT 34 U/L (15-39); BILIRUBIN,TOTAL 0.2 mg/dL (0.2-1.3); BLOOD UREA NITROGEN 23 mg/dL (7-21); CALCIUM 9.5 mg/dL (8.4-10.5); CARBON DIOXIDE 26 mmol/L (21-33); CHLORIDE 102 mmol/L (98-107); GFR AFRICAN-AMERICAN 31; GLUCOSE,RANDOM 105 mg/dL (70-110); MAGNESIUM 2.2 mg/dL (1.7-2.2); POTASSIUM 4.4 mmol/L (3.6-5.0); SODIUM 140 mmol/L (132-148); TOTAL PROTEIN 7.1 g/dL (5.8-8.3)
[2017-04-03 14:33] LABS: TROPONIN I < 0.01 ng/mL
--- NOTE | 2017-04-03 16:19 | CP.PCM.HP ---
History of Present Illness - History of Present Illness History of Present Illness: HPI: Mrs. Duque is a 62 year old female with a past medical history of HTN, HLD , SLE, Scleroderma, Phan's Esophagus, CKD, CAD, Hypothyroidism, and NSTEMI s/ p stent placements, who presented to the ED after having fatigue and hypotension at her PMD's office. She states that at home, she has been feeling fatigued, dizzy, and has had dyspnea on exertion, and has had blurry vision 'as if she's coming off of anesthesia.' This occurs mostly when she stands up from the sitting position. Pt denies F/Ch/N/V/D/CP. Patient further denies loss of vision. Of note, patient was admitted over the weekend with hematemesis and intractible n/v. She was discharged on Sunday. In addition, patient was recently admitted with similar symptoms as those that she has presented with today. She was instructed to follow up with her metal caster outpatient, Dr. Catalan. She does have an appointment set up for this Sunday. Patient is well known to Dr. Hayward and is good with follow up. PMH: HTN, SLE, Scleroderma, Phan's Esophagus, CKD, CAD, HLD, and NSTEMI PSH: 7 stents placed in her heart, most recently in May Family History: Father -CVA Social History: Denies tobacco, alcohol or illicit drug use Allergies: chicken derived Home Medications: As per OCT PMD: Dr. Mckinnon Present on Admission - Present on Admission Any Indicators Present on Admission: No Review of Systems - Hematologic/Lymphatic Additional comments: Constitutional: +Pt has generalized weakness; pt denies fever, chills ENT: pt denies dysphagia, otalgia, hearing deficit, rhinorrhea Eyes: pt denies sudden loss of vision, diplopia, blurred vision MSK: pt denies muscle stiffness, joint pain, extremity cramping Cardio: +Pt admits to dyspnea on exertion; orthostatic symptoms; denies hx of heart murmur, cp Pulm: pt denies cough, hemoptysis, wheeze GI: +Recently admitted for hematemesis over the weekend; pt denies loss of appetite, abdominal pain, constipation, melena, n/v/d : pt denies burning on urination, urinary frequency, hematuria, urinary urgency Neuro: pt denies paresis, paresthesia, dizziness, ash, numbness, tingling Derm: pt denies skin changes, lesions, nail changes Endo: +Admits to 12 lbs of weight loss over the past month; pt denies intolerance to heat/cold, diaphoresis, night sweats, polydipsia Psych: pt denies anxiety, depression, mood changes Past Patient History - Infectious Disease Hx of Infectious Diseases: None - Tetanus Immunizations Tetanus Immunization: Unknown - Past Social History Smoking Status: Never Smoked - CARDIAC Hx Cardiac Disorders: Yes Hx Hypertension: Yes - PULMONARY Hx Respiratory Disorders: Yes Hx Bronchitis: Yes - NEUROLOGICAL Hx Neurological Disorder: No Hx Paralysis: No - HEENT Hx HEENT Problems: Yes Hx Difficulty Chewing: Yes - RENAL Hx Chronic Kidney Disease: Yes Hx Kidney Stones: Yes - ENDOCRINE/METABOLIC Hx Endocrine Disorders: Yes Hx Hypothyroidism: Yes - HEMATOLOGICAL/ONCOLOGICAL Hx Blood Disorders: Yes Hx Anemia: Yes Hx Blood Transfusions: Yes - INTEGUMENTARY Hx Dermatological Problems: No - MUSCULOSKELETAL/RHEUMATOLOGICAL Hx Musculoskeletal Disorders: Yes Hx Falls: Yes - GASTROINTESTINAL Hx Gastrointestinal Disorders: Yes HX Swallowing Problems: Yes (patient states that she has difficulty swallowing) - GENITOURINARY/GYNECOLOGICAL Hx Genitourinary Disorders: No Other/Comment: c-sections, breast self examination - PSYCHIATRIC Hx Psychophysiologic Disorder: No Hx Emotional Abuse: No Hx Physical Abuse: No Hx Substance Use: No - SURGICAL HISTORY Hx Cholecystectomy: Yes Hx Coronary Stent: Yes (x3) - ANESTHESIA Hx Anesthesia Reactions: No Hx Malignant Hyperthermia: No Meds Allergies/Adverse Reactions: Allergies Allergy/AdvReac Type Severity Reaction Status Date / Time chicken derived Allergy Severe ANAPHYLAXIS Verified 04/03/17 13:31 Physical Exam - Additional Findings Additional findings: VS as above Constitutional: +fatigued female, a&o x 4, nad, Head and Neck: neck supple, no jvd, trachea midline, carotid midline, no cervical/head mass Eyes: +conjunctival pallor; herrera, eom intact ENT: +superficial blood vessels; auditory acuity grossly intact, throat not congested, no nasal deformity Cardio: +pansystolic murmur; +orthostatic vital signs from laying to standing; rrr, no r/g, no carotid bruit, nml s1, s2 Pulm: no accessory muscle use, equal nml breath sounds bilaterally, ctab Abd: no hepatomegaly, no splenomegaly; s/nt/nd, nbs x 4 q, no palpable masses Derm: +ecchymoses; no petechiae, purpura, angiomas, hair coarseness; no rashes, no ulcers, no lesions Extr: no edema, no cyanosis, no calf tenderness, no lesions, no varicosities Neuro: cn II-XII grossly intact, ue and le 5/5 muscle strength bilaterally , no los ue, le bilaterally and core Results - Vital Signs Recent Vital Signs: Last Vital Signs Temp 98 F 04/03/17 13:31 Pulse 59 L 04/03/17 15:50 Resp 14 04/03/17 15:50 BP 90/67 L 04/03/17 15:50 Pulse Ox 100 04/03/17 15:50 - Labs Result Diagrams: 04/03/17 13:55 04/03/17 13:55 Assessment & Plan - Assessment and Plan (Free Text) Assessment: Mrs. Duque is a 62 year old female with a past medical history of HTN, HLD, SLE , Scleroderma, Phan's Esophagus, CKD, CAD, Hypothyroidism, and NSTEMI s/p stent placements, who presented to the ED after having fatigue and hypotension at her PMD's office. Patient was recently admitted with Anemia (03/29) Plan: 1. Symptomatic Anemia - SOB on exertion - H/H: 10.3/32.7 - Type and screen done - Heme C/s: Dr. Bass - GI C/s: Dr. Wolf - Fe studies, folate, B12 and peripheral smear pending 2. Symptomatic Hypotension - Orthostatics Positive - 90/67 current BP - IVF - NS, 1 bolus of 1L; Running at 100 mls/hr 3. DEANA likely 2/2 Hemodynamic Changes - Cr: 2.0, baseline is ~1.2 - Fena, CrCl, Mg, Phos, CMP, CBC, Uric Acid pending - Nephro consulted: Dr. Moreira 4. Hx/O HLD - Continue Lipitor 5. Hx/o Hypothyroidism - Continue Synthroid 6. Hx of Depression - Prozac and Doxepin 7. History of SLE -cont home hydroxychloroquine 8. GI/DVT Prophylaxis -Protonix/scd's Dispo: Source of patient's anemia needs to be determined Patient seen and case discussed with attending, Dr. Mckinnon
[2017-04-03] MEDS ORDERED: Iron Sucrose 100 mg/5 ml Inj IVP SCH (17:00)
[2017-04-03] MEDS: Sodium Chloride 0.9% 1,000 ML IV SCH (18:02)
[2017-04-03 19:49] VITALS: BMI 24.5
[2017-04-03 21:57] LABS: HEMATOCRIT 27.5 % (36.0-48.0)
[2017-04-03 22:20] LABS: IRON 344 ug/dL (45-180)
[2017-04-03 22:48] LABS: INR 1.07 (0.93-1.08); PARTIAL THROMBOPLASTIN TIME 39.7 Seconds (23.7-30.8)
[2017-04-04 00:57] LABS: URINE BILIRUBIN NEGATIVE (NEGATIVE); URINE BLOOD NEGATIVE (NEGATIVE); URINE GLUCOSE (UA) NEGATIVE (NEGATIVE); URINE KETONE NEGATIVE (NEGATIVE); URINE LEUKOCYTE ESTERASE NEGATIVE Leu/uL (NEGATIVE); URINE PROTEIN NEGATIVE mg/dL (<30 mg/dL); URINE UROBILINOGEN 0.2 E.U./dL (<1 E.U./dL)
[2017-04-04 01:14] LABS: URINE APPEARANCE CLEAR (CLEAR); URINE COLOR YELLOW (YELLOW)
[2017-04-04] MEDS: Sodium Chloride 0.9% 1,000 ML IV SCH ×3 (03:27→21:57)
[2017-04-04] MEDS: Pantoprazole 40 mg EC Tab PO SCH (05:51)
[2017-04-04 06:12] LABS: HEMATOCRIT 26.2 % (36.0-48.0)
[2017-04-04 06:13] LABS: BASO # 0.01 K/mm3 (0.0-2.0); BASO % 0.4 % (0.0-3.0); EOS # 0.1 (0.0-0.7); GRAN # 1.22 (1.4-6.5); GRAN % 52.6 % (50.0-68.0); HEMATOCRIT 26.7 % (36.0-48.0); LYMPH # 0.8 (1.2-3.4); LYMPH % 34.5 % (22.0-35.0); MEAN CELL VOLUME 87.8 fl (80.0-105.0); MEAN CORPUSCULAR HEMOGLOBIN 26.3 pg (25.0-35.0); MONO # 0.2 (0.1-0.6); MONO % 9.5 % (1.0-6.0)
[2017-04-04 06:32] LABS: WHITE BLOOD COUNT 2.3 10^3/ul (4.5-11.0)
[2017-04-04 06:38] LABS: ALB/GLOB RATIO 1.1 (1.1-1.8); ALKALINE PHOSPHATASE 55 U/L (38-133); ALT/SGPT 18 U/L (7-56); AST/SGOT 25 U/L (15-39); BLOOD UREA NITROGEN 15 mg/dL (7-21); CALCIUM 7.3 mg/dL (8.4-10.5); CARBON DIOXIDE 22 mmol/L (21-33); CHLORIDE 116 mmol/L (98-107); GFR AFRICAN-AMERICAN 51; GLUCOSE,RANDOM 73 mg/dL (70-110); POTASSIUM 3.5 mmol/L (3.6-5.0); SODIUM 144 mmol/L (132-148); TOTAL PROTEIN 5.1 g/dL (5.8-8.3)
[2017-04-04 06:56] LABS: BILIRUBIN,TOTAL < 0.1 mg/dL (0.2-1.3)
[2017-04-04] MEDS ORDERED: Potassium Chloride 20 mEq ER Tab PO ONE (07:21)
[2017-04-04] MEDS: Levothyroxine 150 MCG TAB PO SCH (07:56)
--- NOTE | 2017-04-04 08:50 | CP.PCM.CON ---
History of Present Illness - History of Present Illness History of Present Illness: 62 year old female with a past medical history of CKD, SLE, HTN, Scleroderma, IgA that presented w/ hypotension. Pt was recently admitted here a couple weeks ago w/ UGIB and hypertensive urgency. SHe subsequently was discharged and doing reasonably well for a couple weeks until readmission this past weekend associated with naussea. Her bp improved once again and was sent home. She says for the past 2 days she took no antihypertensive medications and was fund to be profoundly hypotensive in her PMD's office and was sent for further evaluation to ER. She was found to have DEANA and hypotension given IVF and admitted for further evaluation. Of note she has been requiring several transfusions over the last couple weeks. Etiology has not been clear. SHe has been under the care of heme - previously had a BMBx and is being considered for another one. ROS: a full detailed ROS is negative except as in my HPI PMH: CKDII, IgA, HTN, SLE, Scleroderma, Phan's Esophagus, CAD, HLD, and NSTEMI Family History: Father -CVA Social History: Denies tobacco, alcohol or illicit drug use Allergies: NKDA Past Patient History - Infectious Disease Hx of Infectious Diseases: None - Tetanus Immunizations Tetanus Immunization: Unknown - Past Social History Smoking Status: Never Smoked - CARDIAC Hx Cardiac Disorders: Yes Hx Hypertension: Yes Hx Peripheral Edema: Yes (ble +1) Other/Comment: oh 2012/2013/2014/2015, ptca with stents, 6 or 7 total - PULMONARY Hx Respiratory Disorders: Yes Hx Bronchitis: Yes - NEUROLOGICAL Hx Neurological Disorder: Yes (raynauds syndrome) - HEENT Hx HEENT Problems: Yes (eyeglasses) Hx Difficulty Chewing: Yes Hx Epistaxis: (and swallowing) Other/Comment: pt has no mobility in esophagus was eating puree, now cuts her food up very small - RENAL Hx Chronic Kidney Disease: Yes Hx Kidney Stones: Yes - ENDOCRINE/METABOLIC Hx Endocrine Disorders: Yes Hx Hypothyroidism: Yes Hx Systemic Lupus Erythematosus: Yes - HEMATOLOGICAL/ONCOLOGICAL Hx Blood Disorders: Yes Hx Anemia: Yes (blood transfusions) Hx Cancer: Yes (iron deficiency anemia) Other/Comment: iron infusions - INTEGUMENTARY Other/Comment: scleroderma, fell sravan bruised lle faded bruises lle and left knee, left knee slightly swollen +1 pitting edema - MUSCULOSKELETAL/RHEUMATOLOGICAL Hx Musculoskeletal Disorders: Yes Hx Falls: Yes (january 2017) Hx Unsteady Gait: Yes - GASTROINTESTINAL Hx Gastrointestinal Disorders: Yes Hx Gastroesophageal Reflux: Yes HX Swallowing Problems: Yes (patient states that she has difficulty swallowing) Hx Ulcer: Yes Other/Comment: 8 or 9 colonoscopies, about 10 endoscopies - GENITOURINARY/GYNECOLOGICAL Hx Genitourinary Disorders: No Other/Comment: c-sections x2, breast self examination - PSYCHIATRIC Hx Psychophysiologic Disorder: No Hx Emotional Abuse: No Hx Physical Abuse: No Hx Substance Use: No - SURGICAL HISTORY Hx Cardiac Catheterization: Yes Hx Cholecystectomy: Yes Hx Coronary Stent: Yes (6 or 7 total) Other/Comment: cervical fusion x4 discs with plate - ANESTHESIA Hx Anesthesia Reactions: No Hx Malignant Hyperthermia: No Meds Allergies/Adverse Reactions: Allergies Allergy/AdvReac Type Severity Reaction Status Date / Time chicken derived Allergy Severe ANAPHYLAXIS Verified 04/03/17 13:31 - Medications Medications: Current Medications Atorvastatin Calcium (Lipitor) 40 mg PO DAILY [facility] Sodium Chloride (Sodium Chloride 0.9%) 1,000 mls @ 100 mls/hr IV .Q10H [facility] Last Admin: 04/04/17 03:27 Dose: 100 mls/hr Iron Sucrose 100 mg/ Sodium (Chloride) 105 mls @ 210 mls/hr IVPB 1700 [facility] Last Admin: 04/03/17 18:02 Dose: 210 mls/hr Levothyroxine Sodium (Synthroid) 150 mcg PO ACB [facility] Last Admin: 04/04/17 07:56 Dose: 150 mcg Losartan Potassium (Cozaar) 100 mg PO DAILY [facility] Metoprolol Tartrate (Lopressor) 25 mg PO BID [facility] Last Admin: 04/03/17 18:11 Dose: Not Given Pantoprazole Sodium (Protonix Ec Tab) 40 mg PO 0600 [facility] Last Admin: 04/04/17 05:51 Dose: 40 mg Prasugrel (Effient) 10 mg PO DAILY [facility] Physical Exam - Head Exam Head Exam: ATRAUMATIC - Eye Exam Eye Exam: Normal appearance - ENT Exam ENT Exam: Normal Exam - Neck Exam Neck exam: Positive for: Normal Inspection - Respiratory Exam Respiratory Exam: NORMAL BREATHING PATTERN - Cardiovascular Exam Cardiovascular Exam: +S1 - GI/Abdominal Exam GI & Abdominal Exam: Normal Bowel Sounds - Extremities Exam Extremities exam: Positive for: normal inspection - Neurological Exam Neurological exam: Alert, Oriented x3 - Psychiatric Exam Psychiatric exam: Normal Affect - Skin Skin Exam: Normal Color Results - Vital Signs Recent Vital Signs: Last Vital Signs Temp 97.8 F 04/04/17 06:00 Pulse 62 04/04/17 06:00 Resp 18 04/04/17 06:00 BP 114/54 L 04/04/17 06:00 Pulse Ox 97 04/04/17 06:00 - Labs Result Diagrams: 04/04/17 05:50 04/04/17 05:50 Labs: Laboratory Results - last 24 hr 04/03/17 04/03/17 04/03/17 21:45 21:45 21:45 WBC RBC Hgb 8.7 L Hct 27.5 L MCV MCH MCHC RDW Plt Count MPV Gran % Lymph % (Auto) [place] % (Auto) Eos % (Auto) Baso % (Auto) Gran # Lymph # [place] # Eos # Baso # PT 11.6 INR 1.07 APTT 39.7 H Sodium Potassium Chloride Carbon Dioxide Anion Gap BUN Creatinine Est GFR ( Amer) Est GFR (Non-Af Amer) Random Glucose Calcium Iron 344 H TIBC 240 L % Saturation 143 H Total Bilirubin AST ALT Alkaline Phosphatase Total Protein Albumin Globulin Albumin/Globulin Ratio Urine Color Urine Appearance Urine pH Ur Specific [place] Urine Protein Urine Glucose (UA) Urine Ketones Urine Blood Urine Nitrate Urine Bilirubin Urine Urobilinogen Ur Leukocyte Esterase Ur Random Sodium 04/03/17 04/03/17 04/04/17 23:00 23:00 05:50 WBC 2.3 L* D RBC 3.04 L Hgb 8.0 L Hct 26.7 L MCV 87.8 MCH 26.3 MCHC 30.0 L RDW 18.0 H Plt Count 202 MPV 10.0 Gran % 52.6 Lymph % (Auto) 34.5 [place] % (Auto) 9.5 H Eos % (Auto) 3.0 Baso % (Auto) 0.4 Gran # 1.22 L Lymph # 0.8 L [place] # 0.2 Eos # 0.1 Baso # 0.01 PT INR APTT Sodium Potassium Chloride Carbon Dioxide Anion Gap BUN Creatinine Est GFR ( Amer) Est GFR (Non-Af Amer) Random Glucose Calcium Iron TIBC % Saturation Total Bilirubin AST ALT Alkaline Phosphatase Total Protein Albumin Globulin Albumin/Globulin Ratio Urine Color Yellow Urine Appearance Clear Urine pH 6.0 Ur Specific [place] 1.010 Urine Protein Negative Urine Glucose (UA) Negative Urine Ketones Negative Urine Blood Negative Urine Nitrate Negative Urine Bilirubin Negative Urine Urobilinogen 0.2 Ur Leukocyte Esterase Negative Ur Random Sodium 88 04/04/17 04/04/17 05:50 05:50 WBC RBC Hgb 8.0 L Hct 26.2 L MCV MCH MCHC RDW Plt Count MPV Gran % Lymph % (Auto) [place] % (Auto) Eos % (Auto) Baso % (Auto) Gran # Lymph # [place] # Eos # Baso # PT INR APTT Sodium 144 Potassium 3.5 L Chloride 116 H Carbon Dioxide 22 Anion Gap 10 BUN 15 Creatinine 1.3 Est GFR ( Amer) 51 Est GFR (Non-Af Amer) 42 Random Glucose 73 Calcium 7.3 L Iron TIBC % Saturation Total Bilirubin < 0.1 L AST 25 ALT 18 Alkaline Phosphatase 55 Total Protein 5.1 L Albumin 2.7 L Globulin 2.4 Albumin/Globulin Ratio 1.1 Urine Color Urine Appearance Urine pH Ur Specific [place] Urine Protein Urine Glucose (UA) Urine Ketones Urine Blood Urine Nitrate Urine Bilirubin Urine Urobilinogen Ur Leukocyte Esterase Ur Random Sodium Assessment & Plan - Assessment and Plan (Free Text) Assessment: ARF/ Hypotension/ Anemia / Leukopenia / Scleroderma plan: DEANA - likely 2/2 to hemodynamic hypotension. Improved now w/ improved blood pressure. UA from this past weekend was bland w/ no proteinuria not suggestive of any active glomerular disease The fluctuating blood pressure / bradycardia (even when metop is not being given ) suggests possible autonomic dysfunction. Etiology of this autonomic dysfunction is not clear - given her bictyopenia I would be concerned for a paraprotein related disorder ? amyloid? Would recc heme consult. Alternatively could be autonomic dysfunction from autoimmune disease? though at least from a renal perspective this looks quisecent. Anemia- as above follow up w/ heme
[2017-04-04 09:18] LABS: RETIC% 1.2 % (0.5-1.5)
[2017-04-04] MEDS: Sodium Chloride 0.9% 1,000 ML IV STA (12:45)
--- NOTE | 2017-04-04 13:43 | CP.PCM.PN ---
Subjective - Date & Time of Evaluation Date of Evaluation: 04/04/17 Time of Evaluation: 07:10 - Subjective Subjective: Pt s/e bedside. Patient feels much less fatigued than she did yesterday. Her blood pressure has improved from her hypotensive state yesterday. Her hemoglobin dropped, but this could be dilutional, will recheck. Patient states that she feels more energetic today. Better sleep hygiene was discussed. Pt denies F/ch/n/v/d/sob/cp. Pt further denies hematochezia, hematuria, hemoptysis. No further complaints. Objective - Vital Signs/Intake and Output Vital Signs (last 24 hours): Temp Pulse Resp BP Pulse Ox 97.9 F 49 L 16 156/71 H 97 04/04/17 11:37 04/04/17 11:37 04/04/17 11:37 04/04/17 11:37 04/04/17 06:00 Intake and Output: 04/04/17 04/04/17 06:59 18:59 Intake Total 240 Balance 240 - Medications Medications: Current Medications Atorvastatin Calcium (Lipitor) 40 mg PO DAILY [facility] Last Admin: 04/04/17 10:46 Dose: 40 mg Sodium Chloride (Sodium Chloride 0.9%) 1,000 mls @ 100 mls/hr IV .Q10H [facility] Last Admin: 04/04/17 12:48 Dose: 100 mls/hr Iron Sucrose 100 mg/ Sodium (Chloride) 105 mls @ 210 mls/hr IVPB 1700 [facility] Last Admin: 04/03/17 18:02 Dose: 210 mls/hr Levothyroxine Sodium (Synthroid) 150 mcg PO ACB [facility] Last Admin: 04/04/17 07:56 Dose: 150 mcg Losartan Potassium (Cozaar) 100 mg PO DAILY [facility] Last Admin: 04/04/17 10:46 Dose: 100 mg Metoprolol Tartrate (Lopressor) 25 mg PO BID [facility] Last Admin: 04/04/17 10:46 Dose: 25 mg Pantoprazole Sodium (Protonix Ec Tab) 40 mg PO 0600 [facility] Last Admin: 04/04/17 05:51 Dose: 40 mg Prasugrel (Effient) 10 mg PO DAILY [facility] Last Admin: 04/04/17 10:46 Dose: 10 mg - Labs Labs: 04/04/17 05:50 04/04/17 05:50 PT 11.6 Seconds (9.9-11.8) 04/03/17 21:45 INR 1.07 (0.93-1.08) 04/03/17 21:45 APTT 39.7 Seconds (23.7-30.8) H 04/03/17 21:45 - Additional Findings Additional findings: VS as above Constitutional: +fatigued female, a&o x 4, nad, Head and Neck: neck supple, no jvd, trachea midline, carotid midline, no cervical/head mass Eyes: +conjunctival pallor; herrera, eom intact ENT: +superficial blood vessels; auditory acuity grossly intact, throat not congested, no nasal deformity Cardio: +pansystolic murmur; +orthostatic vital signs from laying to standing; rrr, no r/g, no carotid bruit, nml s1, s2 Pulm: no accessory muscle use, equal nml breath sounds bilaterally, ctab Abd: no hepatomegaly, no splenomegaly; s/nt/nd, nbs x 4 q, no palpable masses Derm: +ecchymoses; no petechiae, purpura, angiomas, hair coarseness; no rashes, no ulcers, no lesions Extr: no edema, no cyanosis, no calf tenderness, no lesions, no varicosities Neuro: cn II-XII grossly intact, ue and le 5/5 muscle strength bilaterally , no los ue, le bilaterally and core Assessment and Plan - Assessment and Plan (Free Text) Assessment: Mrs. Duque is a 62 year old female with a past medical history of HTN, HLD, SLE , Scleroderma, Phan's Esophagus, CKD, CAD, Hypothyroidism, and NSTEMI s/p stent placements, who presented to the ED after having fatigue and hypotension at her PMD's office. Patient was recently admitted with Anemia (03/29) Plan: 1. Symptomatic Anemia likely 2/2 myelodysplastic syndrome VS Cisco-Navjot Syndrome VS Unknown - SOB on exertion - H/H: 10.3/32.7 - Type and screen done - Heme C/s: Dr. Bass - GI C/s: Dr. Wolf Getting diagnostic EGD and Colonoscopy 04/04 - Fe studies: Increased Iron, Decreased TIBC, likely 2/2 to therapeutic iron being given - B12 within normal limits 2. Symptomatic Hypotension - improved - Orthostatics Positive - 90/67 current BP - IVF - NS, 1 bolus of 1L, then two bags. Currently normotensive 3. DEANA likely 2/2 Hemodynamic Changes - Cr: 2.0, baseline is ~1.2 - Fena, CrCl, Mg, Phos, CMP, CBC, Uric Acid pending - Nephro consulted: Dr. Moreira 4. Hx/O HLD - Continue Lipitor 5. Hx/o Hypothyroidism - Continue Synthroid 6. Hx of Depression - Prozac and Doxepin 7. History of SLE -cont home hydroxychloroquine 8. GI/DVT Prophylaxis -Protonix/scd's Dispo: Source of patient's anemia needs to be determined Patient seen and case discussed with attending, Dr. Mckinnon
--- NOTE | 2017-04-04 13:44 | CP.PCM.CON ---
<Vernell Goodman - Last Filed: 04/04/17 14:34> History of Present Illness - History of Present Illness History of Present Illness: Gastroenterology Fellow/PGY5 Consult Note 62 year old female with history of Hypertension, Hyperlipidemia, CKD, Hypothyroidism, multiple cardiac stents (last 05/2016) on Effient, SLE, scleroderma, esophageal dysmotility, and long segment Phan's esophagus presenting with weakness. Two recent discharges for nausea and vomiting with noted anemia requiring 2 units pRBCs without overt GI blood loss. Patient denies fever, chills, sweats, nausea, vomiting, hematemesis, abdominal pain, diarrhea, constipation, melena, hematochezia, or unintentional weight loss. Colonoscopy performed 03/21/17 showed ascending/sigmoid diverticulosis and sigmoid erosions without stigmata of bleeding. Recent EGD 02/19/17 showed no stigmata of recent bleeding and long segment Phan's esophagus C0-M6. Family- Brother-cancer (unknown type), sister- CHF, Basilar artery aneurysm, father-CVA, [place]; denies colorectal cancer Social-denies tobacco, alcohol, illicit drug use Surgery- cardiac stents Review of Systems - Review of Systems Review of Systems: 12-point review of systems negative except for as above Past Patient History - Infectious Disease Hx of Infectious Diseases: None - Tetanus Immunizations Tetanus Immunization: Unknown - Past Social History Smoking Status: Never Smoked - CARDIAC Hx Cardiac Disorders: Yes Hx Hypertension: Yes Hx Peripheral Edema: Yes (ble +1) Other/Comment: ks 2012/2013/2014/2015, ptca with stents, 6 or 7 total - PULMONARY Hx Respiratory Disorders: Yes Hx Bronchitis: Yes - NEUROLOGICAL Hx Neurological Disorder: Yes (raynauds syndrome) - HEENT Hx HEENT Problems: Yes (eyeglasses) Hx Difficulty Chewing: Yes Hx Epistaxis: (and swallowing) Other/Comment: pt has no mobility in esophagus was eating puree, now cuts her food up very small - RENAL Hx Chronic Kidney Disease: Yes Hx Kidney Stones: Yes - ENDOCRINE/METABOLIC Hx Endocrine Disorders: Yes Hx Hypothyroidism: Yes Hx Systemic Lupus Erythematosus: Yes - HEMATOLOGICAL/ONCOLOGICAL Hx Blood Disorders: Yes Hx Anemia: Yes (blood transfusions) Hx Cancer: Yes (iron deficiency anemia) Other/Comment: iron infusions - INTEGUMENTARY Other/Comment: scleroderma, fell sravan bruised lle faded bruises lle and left knee, left knee slightly swollen +1 pitting edema - MUSCULOSKELETAL/RHEUMATOLOGICAL Hx Musculoskeletal Disorders: Yes Hx Falls: Yes (january 2017) Hx Unsteady Gait: Yes - GASTROINTESTINAL Hx Gastrointestinal Disorders: Yes Hx Gastroesophageal Reflux: Yes HX Swallowing Problems: Yes (patient states that she has difficulty swallowing) Hx Ulcer: Yes Other/Comment: 8 or 9 colonoscopies, about 10 endoscopies - GENITOURINARY/GYNECOLOGICAL Hx Genitourinary Disorders: No Other/Comment: c-sections x2, breast self examination - PSYCHIATRIC Hx Psychophysiologic Disorder: No Hx Emotional Abuse: No Hx Physical Abuse: No Hx Substance Use: No - SURGICAL HISTORY Hx Cardiac Catheterization: Yes Hx Cholecystectomy: Yes Hx Coronary Stent: Yes (6 or 7 total) Other/Comment: cervical fusion x4 discs with plate - ANESTHESIA Hx Anesthesia Reactions: No Hx Malignant Hyperthermia: No Meds Allergies/Adverse Reactions: Allergies Allergy/AdvReac Type Severity Reaction Status Date / Time chicken derived Allergy Severe ANAPHYLAXIS Verified 04/03/17 13:31 - Medications Medications: Current Medications Atorvastatin Calcium (Lipitor) 40 mg PO DAILY [facility] Last Admin: 04/04/17 10:46 Dose: 40 mg Sodium Chloride (Sodium Chloride 0.9%) 1,000 mls @ 100 mls/hr IV .Q10H [facility] Last Admin: 04/04/17 12:48 Dose: 100 mls/hr Iron Sucrose 100 mg/ Sodium (Chloride) 105 mls @ 210 mls/hr IVPB 1700 [facility] Last Admin: 04/03/17 18:02 Dose: 210 mls/hr Levothyroxine Sodium (Synthroid) 150 mcg PO ACB [facility] Last Admin: 04/04/17 07:56 Dose: 150 mcg Losartan Potassium (Cozaar) 100 mg PO DAILY [facility] Last Admin: 04/04/17 10:46 Dose: 100 mg Metoprolol Tartrate (Lopressor) 25 mg PO BID [facility] Last Admin: 04/04/17 10:46 Dose: 25 mg Pantoprazole Sodium (Protonix Ec Tab) 40 mg PO 0600 [facility] Last Admin: 04/04/17 05:51 Dose: 40 mg Prasugrel (Effient) 10 mg PO DAILY [facility] Last Admin: 04/04/17 10:46 Dose: 10 mg Physical Exam - Constitutional Appears: Non-toxic, No Acute Distress - Head Exam Head Exam: ATRAUMATIC, NORMOCEPHALIC - Eye Exam Eye Exam: EOMI, PERRL Pupil Exam: PERRL. absent: Miosis, Mydriatic - ENT Exam ENT Exam: Mucous Membranes Moist, Normal Oropharynx - Neck Exam Neck exam: Positive for: Full Rom, Normal Inspection - Respiratory Exam Respiratory Exam: Clear to Auscultation Bilateral. absent: Rales, Rhonchi, Wheezes - Cardiovascular Exam Cardiovascular Exam: RRR, +S1, +S2. absent: Gallop, Rubs - GI/Abdominal Exam GI & Abdominal Exam: Normal Bowel Sounds, Soft. absent: Distended, Firm, Guarding, Organomegaly, Rebound, Rigid, Tenderness - Rectal Exam Rectal Exam: absent: Black Stool, Bloody Stool, Fecal Impaction Additional comments: light brown stool - Extremities Exam Extremities exam: Positive for: normal inspection. Negative for: pedal edema - Neurological Exam Neurological exam: Alert - Psychiatric Exam Psychiatric exam: Normal Affect, Normal Mood - Skin Skin Exam: Dry, Intact, Normal Color, Warm Results - Vital Signs Recent Vital Signs: Last Vital Signs Temp 97.9 F 04/04/17 11:37 Pulse 49 L 04/04/17 11:37 Resp 16 04/04/17 11:37 BP 156/71 H 04/04/17 11:37 Pulse Ox 97 04/04/17 06:00 - Labs Result Diagrams: 04/04/17 05:50 04/04/17 05:50 Labs: Laboratory Results - last 24 hr 04/03/17 04/03/17 04/03/17 21:45 21:45 21:45 WBC RBC Hgb Hct MCV MCH MCHC RDW Plt Count MPV Gran % Lymph % (Auto) [place] % (Auto) Eos % (Auto) Baso % (Auto) Gran # Lymph # [place] # Eos # Baso # Retic Count PT 11.6 INR 1.07 APTT 39.7 H Sodium Potassium Chloride Carbon Dioxide Anion Gap BUN Creatinine Est GFR ( Amer) Est GFR (Non-Af Amer) Random Glucose Calcium Magnesium Iron 344 H TIBC 240 L % Saturation 143 H Total Bilirubin AST ALT Alkaline Phosphatase Total Protein Albumin Globulin Albumin/Globulin Ratio Vitamin B12 477 Urine Color Urine Appearance Urine pH Ur Specific [place] Urine Protein Urine Glucose (UA) Urine Ketones Urine Blood Urine Nitrate Urine Bilirubin Urine Urobilinogen Ur Leukocyte Esterase Ur Random Sodium 04/03/17 04/03/17 04/03/17 21:45 23:00 23:00 WBC RBC Hgb 8.7 L Hct 27.5 L MCV MCH MCHC RDW Plt Count MPV Gran % Lymph % (Auto) [place] % (Auto) Eos % (Auto) Baso % (Auto) Gran # Lymph # [place] # Eos # Baso # Retic Count PT INR APTT Sodium Potassium Chloride Carbon Dioxide Anion Gap BUN Creatinine Est GFR ( Amer) Est GFR (Non-Af Amer) Random Glucose Calcium Magnesium Iron TIBC % Saturation Total Bilirubin AST ALT Alkaline Phosphatase Total Protein Albumin Globulin Albumin/Globulin Ratio Vitamin B12 Urine Color Yellow Urine Appearance Clear Urine pH 6.0 Ur Specific [place] 1.010 Urine Protein Negative Urine Glucose (UA) Negative Urine Ketones Negative Urine Blood Negative Urine Nitrate Negative Urine Bilirubin Negative Urine Urobilinogen 0.2 Ur Leukocyte Esterase Negative Ur Random Sodium 88 04/04/17 04/04/17 04/04/17 05:50 05:50 05:50 WBC 2.3 L* D RBC 3.04 L Hgb 8.0 L 8.0 L Hct 26.7 L 26.2 L MCV 87.8 MCH 26.3 MCHC 30.0 L RDW 18.0 H Plt Count 202 MPV 10.0 Gran % 52.6 Lymph % (Auto) 34.5 [place] % (Auto) 9.5 H Eos % (Auto) 3.0 Baso % (Auto) 0.4 Gran # 1.22 L Lymph # 0.8 L [place] # 0.2 Eos # 0.1 Baso # 0.01 Retic Count PT INR APTT Sodium 144 Potassium 3.5 L Chloride 116 H Carbon Dioxide 22 Anion Gap 10 BUN 15 Creatinine 1.3 Est GFR ( Amer) 51 Est GFR (Non-Af Amer) 42 Random Glucose 73 Calcium 7.3 L Magnesium Iron TIBC % Saturation Total Bilirubin < 0.1 L AST 25 ALT 18 Alkaline Phosphatase 55 Total Protein 5.1 L Albumin 2.7 L Globulin 2.4 Albumin/Globulin Ratio 1.1 Vitamin B12 Urine Color Urine Appearance Urine pH Ur Specific [place] Urine Protein Urine Glucose (UA) Urine Ketones Urine Blood Urine Nitrate Urine Bilirubin Urine Urobilinogen Ur Leukocyte Esterase Ur Random Sodium 04/04/17 04/04/17 07:00 08:38 WBC RBC Hgb Hct MCV MCH MCHC RDW Plt Count MPV Gran % Lymph % (Auto) [place] % (Auto) Eos % (Auto) Baso % (Auto) Gran # Lymph # [place] # Eos # Baso # Retic Count 1.20 PT INR APTT Sodium Potassium Chloride Carbon Dioxide Anion Gap BUN Creatinine Est GFR ( Amer) Est GFR (Non-Af Amer) Random Glucose Calcium Magnesium 1.8 Iron TIBC % Saturation Total Bilirubin AST ALT Alkaline Phosphatase Total Protein Albumin Globulin Albumin/Globulin Ratio Vitamin B12 Urine Color Urine Appearance Urine pH Ur Specific [place] Urine Protein Urine Glucose (UA) Urine Ketones Urine Blood Urine Nitrate Urine Bilirubin Urine Urobilinogen Ur Leukocyte Esterase Ur Random Sodium Assessment & Plan - Assessment and Plan (Free Text) Assessment: 62 year old female with history of Hypertension, Hyperlipidemia, CKD, Hypothyroidism, multiple cardiac stents (last 05/2016) on Effient, SLE, scleroderma, esophageal dysmotility, and long segment Phan's esophagus presenting with weakness. Recent discharge for anemia status post colonoscopy performed 03/21/17 showed sigmoid erosions without stigmata of bleeding and no biopsy due to being on Effient. Recent EGD 02/19/17 showed no stigmata of recent bleeding and long segment Phan's esophagus C0-M6. Plan: >acute on chronic anemia >concern for symptomatic anemia >inappropriate autonomic response given simultaneous bradycardia and hypotension >no overt GI blood loss >follow up Hem/Onc recommendations >will benefit from diagnostic push enteroscopy and colonoscopy to evaluate for GI blood loss >obtain cardiology clearance >clear liquid diet >will follow clinical course <Gaetano Ruiz MDpicabo - Last Filed: 04/04/17 16:55> Meds - Medications Medications: Current Medications Atorvastatin Calcium (Lipitor) 40 mg PO DAILY [facility] Last Admin: 04/04/17 10:46 Dose: 40 mg Sodium Chloride (Sodium Chloride 0.9%) 1,000 mls @ 100 mls/hr IV .Q10H [facility] Last Admin: 04/04/17 12:48 Dose: 100 mls/hr Iron Sucrose 100 mg/ Sodium (Chloride) 105 mls @ 210 mls/hr IVPB 1700 [facility] Last Admin: 04/03/17 18:02 Dose: 210 mls/hr Levothyroxine Sodium (Synthroid) 150 mcg PO ACB [facility] Last Admin: 04/04/17 07:56 Dose: 150 mcg Losartan Potassium (Cozaar) 100 mg PO DAILY [facility] Last Admin: 04/04/17 10:46 Dose: 100 mg Metoprolol Tartrate (Lopressor) 25 mg PO BID [facility] Last Admin: 04/04/17 10:46 Dose: 25 mg Pantoprazole Sodium (Protonix Ec Tab) 40 mg PO 0600 [facility] Last Admin: 04/04/17 05:51 Dose: 40 mg Prasugrel (Effient) 10 mg PO DAILY [facility] Last Admin: 04/04/17 10:46 Dose: 10 mg Results - Vital Signs Recent Vital Signs: Last Vital Signs Temp 97.9 F 04/04/17 11:37 Pulse 53 L 04/04/17 14:00 Resp 16 04/04/17 11:37 BP 156/71 H 04/04/17 11:37 Pulse Ox 97 04/04/17 06:00 - Labs Result Diagrams: 04/04/17 16:14 04/04/17 05:50 Labs: Laboratory Results - last 24 hr 04/03/17 04/03/17 04/03/17 21:45 21:45 21:45 WBC RBC Hgb Hct MCV MCH MCHC RDW Plt Count MPV Gran % Lymph % (Auto) [place] % (Auto) Eos % (Auto) Baso % (Auto) Gran # Lymph # [place] # Eos # Baso # Retic Count PT 11.6 INR 1.07 APTT 39.7 H Sodium Potassium Chloride Carbon Dioxide Anion Gap BUN Creatinine Est GFR ( Amer) Est GFR (Non-Af Amer) Random Glucose Calcium Magnesium Iron 344 H TIBC 240 L % Saturation 143 H Total Bilirubin AST ALT Alkaline Phosphatase Total Protein Albumin Globulin Albumin/Globulin Ratio Vitamin B12 477 Urine Color Urine Appearance Urine pH Ur Specific [place] Urine Protein Urine Glucose (UA) Urine Ketones Urine Blood Urine Nitrate Urine Bilirubin Urine Urobilinogen Ur Leukocyte Esterase Ur Random Sodium 04/03/17 04/03/17 04/03/17 21:45 23:00 23:00 WBC RBC Hgb 8.7 L Hct 27.5 L MCV MCH MCHC RDW Plt Count MPV Gran % Lymph % (Auto) [place] % (Auto) Eos % (Auto) Baso % (Auto) Gran # Lymph # [place] # Eos # Baso # Retic Count PT INR APTT Sodium Potassium Chloride Carbon Dioxide Anion Gap BUN Creatinine Est GFR ( Amer) Est GFR (Non-Af Amer) Random Glucose Calcium Magnesium Iron TIBC % Saturation Total Bilirubin AST ALT Alkaline Phosphatase Total Protein Albumin Globulin Albumin/Globulin Ratio Vitamin B12 Urine Color Yellow Urine Appearance Clear Urine pH 6.0 Ur Specific [place] 1.010 Urine Protein Negative Urine Glucose (UA) Negative Urine Ketones Negative Urine Blood Negative Urine Nitrate Negative Urine Bilirubin Negative Urine Urobilinogen 0.2 Ur Leukocyte Esterase Negative Ur Random Sodium 88 04/04/17 04/04/17 04/04/17 05:50 05:50 05:50 WBC 2.3 L* D RBC 3.04 L Hgb 8.0 L 8.0 L Hct 26.7 L 26.2 L MCV 87.8 MCH 26.3 MCHC 30.0 L RDW 18.0 H Plt Count 202 MPV 10.0 Gran % 52.6 Lymph % (Auto) 34.5 [place] % (Auto) 9.5 H Eos % (Auto) 3.0 Baso % (Auto) 0.4 Gran # 1.22 L Lymph # 0.8 L [place] # 0.2 Eos # 0.1 Baso # 0.01 Retic Count PT INR APTT Sodium 144 Potassium 3.5 L Chloride 116 H Carbon Dioxide 22 Anion Gap 10 BUN 15 Creatinine 1.3 Est GFR ( Amer) 51 Est GFR (Non-Af Amer) 42 Random Glucose 73 Calcium 7.3 L Magnesium Iron TIBC % Saturation Total Bilirubin < 0.1 L AST 25 ALT 18 Alkaline Phosphatase 55 Total Protein 5.1 L Albumin 2.7 L Globulin 2.4 Albumin/Globulin Ratio 1.1 Vitamin B12 Urine Color Urine Appearance Urine pH Ur Specific [place] Urine Protein Urine Glucose (UA) Urine Ketones Urine Blood Urine Nitrate Urine Bilirubin Urine Urobilinogen Ur Leukocyte Esterase Ur Random Sodium 04/04/17 04/04/17 04/04/17 07:00 08:38 16:14 WBC RBC Hgb 8.8 L Hct 29.2 L MCV MCH MCHC RDW Plt Count MPV Gran % Lymph % (Auto) [place] % (Auto) Eos % (Auto) Baso % (Auto) Gran # Lymph # [place] # Eos # Baso # Retic Count 1.20 PT INR APTT Sodium Potassium Chloride Carbon Dioxide Anion Gap BUN Creatinine Est GFR ( Amer) Est GFR (Non-Af Amer) Random Glucose Calcium Magnesium 1.8 Iron TIBC % Saturation Total Bilirubin AST ALT Alkaline Phosphatase Total Protein Albumin Globulin Albumin/Globulin Ratio Vitamin B12 Urine Color Urine Appearance Urine pH Ur Specific [place] Urine Protein Urine Glucose (UA) Urine Ketones Urine Blood Urine Nitrate Urine Bilirubin Urine Urobilinogen Ur Leukocyte Esterase Ur Random Sodium Attending/Attestation - Attestation I have personally seen and examined this patient.: Yes I have fully participated in the care of the patient.: Yes I have reviewed all pertinent clinical information: Yes Notes (Text): 04/04/17 16:50 Patient seen with GI fellow on rounds. This is a 62 year old female with history of Hypertension, Hyperlipidemia, CKD, Hypothyroidism, multiple cardiac stents (last 05/2016) on Effient, SLE, scleroderma, esophageal dysmotility, and long segment Phan's esophagus presenting with weakness. Recent discharge for anemia status post colonoscopy performed 03/21/17 showed sigmoid erosions without stigmata of bleeding and no biopsy due to being on Effient. Recent EGD 02/19/17 showed no stigmata of recent bleeding and long segment Phan's esophagus C0- M6. Past bone marrow biopsy [place] [address] Catalan but has not followed with windlasser in past year. As per patient BM biopsy was negative. New concern of hypotension with bradycardia requiring cardiac work up. Will definitely benefit from push enteroscopy and colonoscopy to rule out AVM and potential therapeutic coagulation once cardiology clears the patient for anesthesia. Discussed with windlasser. Awaiting cardiology clearance to schedule patient. Clear liquid diet. Follow clinical course. Continue PPI daily 04/04/17 16:55
[2017-04-04 16:24] LABS: HEMATOCRIT 29.2 % (36.0-48.0)
--- NOTE | 2017-04-04 19:56 | CP.PCM.CON ---
History of Present Illness - History of Present Illness History of Present Illness: Hematology Consult Referred by Dr. Hayward for anemia HPI- Ms Duque is known to Dr. Catalan from outpatient. She is 62 y/o F with multiple medical problems including Hypertension, Hyperlipidemia, CKD, Hypothyroidism, multiple cardiac stents (last 05/2016) on Effient, SLE, scleroderma, esophageal dysmotility, and long segment Phan's esophagus who was admitted with symptomatic anemia. Her Hb had dropped to 8.0 and increased to 8.8 today. She had a recent admission for similar complaints requiring blood transfusion. Colonoscopy performed 03/21/17 showed ascending/sigmoid diverticulosis and sigmoid erosions without stigmata of bleeding. EGD 02/19/17 showed no stigmata of recent bleeding and long segment Phan's esophagus. She is on IV Venofer. Her stool ocult came back positive. NO overt bleeding. Denies abdominal pain or nausea/ vomiting/ altered bowel movements. Family- Brother-cancer (unknown type), sister- CHF, Basilar artery aneurysm, father-CVA, [place]; denies colorectal cancer Social-denies tobacco, alcohol, illicit drug use Surgery- cardiac stents Review of Systems - Review of Systems All systems: reviewed and no additional remarkable complaints except Review of Systems: as in HPI Past Patient History - Infectious Disease Hx of Infectious Diseases: None - Tetanus Immunizations Tetanus Immunization: Unknown - Past Social History Smoking Status: Never Smoked - CARDIAC Hx Cardiac Disorders: Yes Hx Hypertension: Yes Hx Peripheral Edema: Yes (ble +1) Other/Comment: mi 2012/2013/2014/2015, ptca with stents, 6 or 7 total - PULMONARY Hx Respiratory Disorders: Yes Hx Bronchitis: Yes - NEUROLOGICAL Hx Neurological Disorder: Yes (raynauds syndrome) - HEENT Hx HEENT Problems: Yes (eyeglasses) Hx Difficulty Chewing: Yes Hx Epistaxis: (and swallowing) Other/Comment: pt has no mobility in esophagus was eating puree, now cuts her food up very small - RENAL Hx Chronic Kidney Disease: Yes Hx Kidney Stones: Yes - ENDOCRINE/METABOLIC Hx Endocrine Disorders: Yes Hx Hypothyroidism: Yes Hx Systemic Lupus Erythematosus: Yes - HEMATOLOGICAL/ONCOLOGICAL Hx Blood Disorders: Yes Hx Anemia: Yes (blood transfusions) Hx Cancer: Yes (iron deficiency anemia) Other/Comment: iron infusions - INTEGUMENTARY Other/Comment: scleroderma, fell sravan bruised lle faded bruises lle and left knee, left knee slightly swollen +1 pitting edema - MUSCULOSKELETAL/RHEUMATOLOGICAL Hx Musculoskeletal Disorders: Yes Hx Falls: Yes (january 2017) Hx Unsteady Gait: Yes - GASTROINTESTINAL Hx Gastrointestinal Disorders: Yes Hx Gastroesophageal Reflux: Yes HX Swallowing Problems: Yes (patient states that she has difficulty swallowing) Hx Ulcer: Yes Other/Comment: 8 or 9 colonoscopies, about 10 endoscopies - GENITOURINARY/GYNECOLOGICAL Hx Genitourinary Disorders: No Other/Comment: c-sections x2, breast self examination - PSYCHIATRIC Hx Psychophysiologic Disorder: No Hx Emotional Abuse: No Hx Physical Abuse: No Hx Substance Use: No - SURGICAL HISTORY Hx Cardiac Catheterization: Yes Hx Cholecystectomy: Yes Hx Coronary Stent: Yes (6 or 7 total) Other/Comment: cervical fusion x4 discs with plate - ANESTHESIA Hx Anesthesia Reactions: No Hx Malignant Hyperthermia: No Meds Allergies/Adverse Reactions: Allergies Allergy/AdvReac Type Severity Reaction Status Date / Time chicken derived Allergy Severe ANAPHYLAXIS Verified 04/03/17 13:31 - Medications Medications: Current Medications Atorvastatin Calcium (Lipitor) 40 mg PO DAILY [facility] Last Admin: 04/04/17 10:46 Dose: 40 mg Sodium Chloride (Sodium Chloride 0.9%) 1,000 mls @ 100 mls/hr IV .Q10H [facility] Last Admin: 04/04/17 12:48 Dose: 100 mls/hr Iron Sucrose 100 mg/ Sodium (Chloride) 105 mls @ 210 mls/hr IVPB 1700 [facility] Last Admin: 04/04/17 17:11 Dose: 210 mls/hr Levothyroxine Sodium (Synthroid) 150 mcg PO ACB [facility] Last Admin: 04/04/17 07:56 Dose: 150 mcg Losartan Potassium (Cozaar) 100 mg PO DAILY [facility] Last Admin: 04/04/17 10:46 Dose: 100 mg Metoprolol Tartrate (Lopressor) 25 mg PO BID [facility] Last Admin: 04/04/17 17:13 Dose: Not Given Pantoprazole Sodium (Protonix Ec Tab) 40 mg PO 0600 [facility] Last Admin: 04/04/17 05:51 Dose: 40 mg Prasugrel (Effient) 10 mg PO DAILY [facility] Last Admin: 04/04/17 10:46 Dose: 10 mg Physical Exam - Head Exam Head Exam: ATRAUMATIC, NORMAL INSPECTION - Eye Exam Eye Exam: EOMI, PERRL - ENT Exam ENT Exam: Mucous Membranes Moist - Neck Exam Neck exam: Negative for: Lymphadenopathy - Respiratory Exam Respiratory Exam: Clear to Auscultation Bilateral - Cardiovascular Exam Cardiovascular Exam: REGULAR RHYTHM - GI/Abdominal Exam GI & Abdominal Exam: Normal Bowel Sounds, Soft. absent: Organomegaly, Tenderness - Extremities Exam Extremities exam: Negative for: pedal edema - Neurological Exam Neurological exam: Alert, Oriented x3 Results - Vital Signs Recent Vital Signs: Last Vital Signs Temp 97.8 F 04/04/17 17:49 Pulse 51 L 04/04/17 18:00 Resp 18 04/04/17 17:49 BP 159/68 H 04/04/17 17:49 Pulse Ox 97 04/04/17 06:00 - Labs Result Diagrams: 04/04/17 16:14 04/04/17 05:50 Labs: Laboratory Results - last 24 hr 04/03/17 04/03/17 04/03/17 21:45 21:45 21:45 WBC RBC Hgb Hct MCV MCH MCHC RDW Plt Count MPV Gran % Lymph % (Auto) O'Brien % (Auto) Eos % (Auto) Baso % (Auto) Gran # Lymph # O'Brien # Eos # Baso # Retic Count PT 11.6 INR 1.07 APTT 39.7 H Sodium Potassium Chloride Carbon Dioxide Anion Gap BUN Creatinine Est GFR ( Amer) Est GFR (Non-Af Amer) Random Glucose Calcium Magnesium Iron 344 H TIBC 240 L % Saturation 143 H Total Bilirubin AST ALT Alkaline Phosphatase Total Protein Albumin Globulin Albumin/Globulin Ratio Vitamin B12 477 Urine Color Urine Appearance Urine pH Ur Specific [place] Urine Protein Urine Glucose (UA) Urine Ketones Urine Blood Urine Nitrate Urine Bilirubin Urine Urobilinogen Ur Leukocyte Esterase Ur Random Sodium Stool Occult Blood 04/03/17 04/03/17 04/03/17 21:45 23:00 23:00 WBC RBC Hgb 8.7 L Hct 27.5 L MCV MCH MCHC RDW Plt Count MPV Gran % Lymph % (Auto) O'Brien % (Auto) Eos % (Auto) Baso % (Auto) Gran # Lymph # O'Brien # Eos # Baso # Retic Count PT INR APTT Sodium Potassium Chloride Carbon Dioxide Anion Gap BUN Creatinine Est GFR ( Amer) Est GFR (Non-Af Amer) Random Glucose Calcium Magnesium Iron TIBC % Saturation Total Bilirubin AST ALT Alkaline Phosphatase Total Protein Albumin Globulin Albumin/Globulin Ratio Vitamin B12 Urine Color Yellow Urine Appearance Clear Urine pH 6.0 Ur Specific [place] 1.010 Urine Protein Negative Urine Glucose (UA) Negative Urine Ketones Negative Urine Blood Negative Urine Nitrate Negative Urine Bilirubin Negative Urine Urobilinogen 0.2 Ur Leukocyte Esterase Negative Ur Random Sodium 88 Stool Occult Blood 04/04/17 04/04/17 04/04/17 05:50 05:50 05:50 WBC 2.3 L* D RBC 3.04 L Hgb 8.0 L 8.0 L Hct 26.7 L 26.2 L MCV 87.8 MCH 26.3 MCHC 30.0 L RDW 18.0 H Plt Count 202 MPV 10.0 Gran % 52.6 Lymph % (Auto) 34.5 O'Brien % (Auto) 9.5 H Eos % (Auto) 3.0 Baso % (Auto) 0.4 Gran # 1.22 L Lymph # 0.8 L O'Brien # 0.2 Eos # 0.1 Baso # 0.01 Retic Count PT INR APTT Sodium 144 Potassium 3.5 L Chloride 116 H Carbon Dioxide 22 Anion Gap 10 BUN 15 Creatinine 1.3 Est GFR ( Amer) 51 Est GFR (Non-Af Amer) 42 Random Glucose 73 Calcium 7.3 L Magnesium Iron TIBC % Saturation Total Bilirubin < 0.1 L AST 25 ALT 18 Alkaline Phosphatase 55 Total Protein 5.1 L Albumin 2.7 L Globulin 2.4 Albumin/Globulin Ratio 1.1 Vitamin B12 Urine Color Urine Appearance Urine pH Ur Specific [place] Urine Protein Urine Glucose (UA) Urine Ketones Urine Blood Urine Nitrate Urine Bilirubin Urine Urobilinogen Ur Leukocyte Esterase Ur Random Sodium Stool Occult Blood 04/04/17 04/04/17 04/04/17 07:00 08:38 15:55 WBC RBC Hgb Hct MCV MCH MCHC RDW Plt Count MPV Gran % Lymph % (Auto) O'Brien % (Auto) Eos % (Auto) Baso % (Auto) Gran # Lymph # O'Brien # Eos # Baso # Retic Count 1.20 PT INR APTT Sodium Potassium Chloride Carbon Dioxide Anion Gap BUN Creatinine Est GFR ( Amer) Est GFR (Non-Af Amer) Random Glucose Calcium Magnesium 1.8 Iron TIBC % Saturation Total Bilirubin AST ALT Alkaline Phosphatase Total Protein Albumin Globulin Albumin/Globulin Ratio Vitamin B12 Urine Color Urine Appearance Urine pH Ur Specific [place] Urine Protein Urine Glucose (UA) Urine Ketones Urine Blood Urine Nitrate Urine Bilirubin Urine Urobilinogen Ur Leukocyte Esterase Ur Random Sodium Stool Occult Blood Positive H 04/04/17 16:14 WBC RBC Hgb 8.8 L Hct 29.2 L MCV MCH MCHC RDW Plt Count MPV Gran % Lymph % (Auto) O'Brien % (Auto) Eos % (Auto) Baso % (Auto) Gran # Lymph # O'Brien # Eos # Baso # Retic Count PT INR APTT Sodium Potassium Chloride Carbon Dioxide Anion Gap BUN Creatinine Est GFR ( Amer) Est GFR (Non-Af Amer) Random Glucose Calcium Magnesium Iron TIBC % Saturation Total Bilirubin AST ALT Alkaline Phosphatase Total Protein Albumin Globulin Albumin/Globulin Ratio Vitamin B12 Urine Color Urine Appearance Urine pH Ur Specific [place] Urine Protein Urine Glucose (UA) Urine Ketones Urine Blood Urine Nitrate Urine Bilirubin Urine Urobilinogen Ur Leukocyte Esterase Ur Random Sodium Stool Occult Blood Assessment & Plan - Assessment and Plan (Free Text) Assessment: Microcytic to Normocytic anemia Borderline leukopenia Her prior work up for anemia had been unremarkable. Bone marrow biopsy in 2014 was normal with normal cytogenetics. Prior SPEP/SIFE did not show any monoclonal gammopathy. Current labs show iron deficiency with positive stool ocult. Continue IV Venofer daily. F/U with GI for endoscopic work up. May need capsule study as outpatient. Follow up with Dr. Catalan as outpatient to monitor blood counts. Thank you for the consult Sergey Bass MD - Date & Time Date: 04/04/17 Time: 19:56
[2017-04-05] MEDS: Pantoprazole 40 mg EC Tab PO SCH (06:14)
[2017-04-05 06:28] LABS: BASO # 0.03 K/mm3 (0.0-2.0); BASO % 1.1 % (0.0-3.0); EOS # 0.1 (0.0-0.7); EOS % 2.8 % (1.5-5.0); GRAN # 1.67 (1.4-6.5); HEMATOCRIT 26.7 % (36.0-48.0); LYMPH # 0.8 (1.2-3.4); LYMPH % 29.3 % (22.0-35.0); MEAN CELL VOLUME 88.7 fl (80.0-105.0); MEAN CORPUSCULAR HEMOGLOBIN 26.9 pg (25.0-35.0); MEAN CORPUSCULAR HGB CONC 30.3 g/dl (31.0-37.0); MEAN PLATELET VOLUME 9.8 fl (7.0-11.0); MONO # 0.2 (0.1-0.6); MONO % 7.8 % (1.0-6.0); RED CELL DISTRIBUTION WIDTH 18.1 % (11.5-14.5)
[2017-04-05 06:35] LABS: WHITE BLOOD COUNT 2.8 10^3/ul (4.5-11.0)
[2017-04-05 06:48] LABS: ALB/GLOB RATIO 1.2 (1.1-1.8); ALKALINE PHOSPHATASE 60 U/L (38-133); ALT/SGPT 27 U/L (7-56); AST/SGOT 32 U/L (15-39); BLOOD UREA NITROGEN 10 mg/dL (7-21); CALCIUM 7.7 mg/dL (8.4-10.5); CARBON DIOXIDE 23 mmol/L (21-33); CHLORIDE 116 mmol/L (98-107); GFR AFRICAN-AMERICAN > 60; GLUCOSE,RANDOM 71 mg/dL (70-110); MAGNESIUM 1.6 mg/dL (1.7-2.2); PHOSPHOROUS 2.8 mg/dL (2.5-4.5); POTASSIUM 3.6 mmol/L (3.6-5.0); SODIUM 144 mmol/L (132-148); TOTAL PROTEIN 5.2 g/dL (5.8-8.3)
[2017-04-05 07:24] LABS: BILIRUBIN,TOTAL < 0.1 mg/dL (0.2-1.3)
[2017-04-05] MEDS: Sodium Chloride 0.9% 1,000 ML IV STA (09:27)
[2017-04-05] MEDS: Levothyroxine 150 MCG TAB PO SCH (09:27)
[2017-04-05] MEDS ORDERED: Magnesium Sulfate 2 GM in Sodium Chloride 0.9% 100 ML IVPB ONE (09:51)
--- NOTE | 2017-04-05 10:20 | CON ---
DATE: 04/05/2017 HISTORY OF PRESENT ILLNESS: The patient is a 62-year-old woman who presents with progressive dizziness as an outpatient. She was found to have a blood pressure of 60-70 systolic as an outpatient and was brought in to the emergency room. Currently, her dizziness is now resolved after IV fluids and holding her medications. The patient's past medical history is notable for recent PTCA and stent of a critically stenosed LAD. She denies chest pain. In addition, the patient has documented anemia in the past and has had multiple invasive procedures which was consistent with Phan's esophagitis. In addition, she suffers from hypercholesterolemia and hypertension. She denies chest pain, denies shortness of breath. SOCIAL HISTORY: She does not smoke. REVIEW OF SYSTEMS: Reviewed in detail. Other than her dizziness, there is no other cardiac symptoms noted. PHYSICAL EXAMINATION: VITAL SIGNS: Blood pressure is 165/82, heart rate is in the 50s and sinus bradycardia. NECK: Negative JVD. LUNGS: Without rales. HEART: S1, S2. EXTREMITIES: Without edema. DIAGNOSTIC DATA: EKG shows sinus bradycardia with no acute changes. LABORATORY DATA: Hemoglobin is 8.1. Chemistries, BUN and creatinine unremarkable. Troponins were not done. IMPRESSION: 1. Dizziness secondary to #2. 2. Hypotension. 3. Anemia which is unchanged from previous. 4. Stable angina. 5. Coronary artery disease. 6. Sinus bradycardia secondary to medications. 7. Hypercholesterolemia. Given these findings, it is likely her dizziness is due to her multiple antihypertensive medications. It is unlikely related to an acute coronary syndrome and unlikely related to her anemia. There is no evidence for GI bleed. PLAN: We will DC her beta-blockers. I will DC her afterload reducers to half the dose. We will monitor for the next 24 to 48 hours. Reese Morgan MD
[2017-04-05] MEDS ORDERED: Potassium Chloride 20 mEq ER Tab PO ONE (11:55)
--- NOTE | 2017-04-05 12:17 | CP.PCM.PN ---
<Vernell Goodman - Last Filed: 04/05/17 12:14> Subjective - Date & Time of Evaluation Date of Evaluation: 04/05/17 Time of Evaluation: 12:14 - Subjective Subjective: Gastroenterology Fellow/PGY5 Progress Note Patient denies abdominal pain. No episodes of dizziness yesterday. Tolerating clear liquid diet. No bowel movement yesterday. 12-point review of systems negative except for as above. Objective - Vital Signs/Intake and Output Vital Signs (last 24 hours): Temp Pulse Resp BP Pulse Ox 98.3 F 55 L 18 165/82 H 97 04/05/17 06:00 04/05/17 09:24 04/05/17 06:00 04/05/17 09:24 04/05/17 06:00 - Medications Medications: Current Medications Atorvastatin Calcium (Lipitor) 40 mg PO DAILY [facility] Last Admin: 04/05/17 09:24 Dose: 40 mg Iron Sucrose 100 mg/ Sodium (Chloride) 105 mls @ 210 mls/hr IVPB 1700 [facility] Last Admin: 04/04/17 17:11 Dose: 210 mls/hr Levothyroxine Sodium (Synthroid) 150 mcg PO ACB [facility] Last Admin: 04/05/17 09:27 Dose: 150 mcg Losartan Potassium (Cozaar) 50 mg PO DAILY [facility] Last Admin: 04/05/17 09:24 Dose: 50 mg Pantoprazole Sodium (Protonix Ec Tab) 40 mg PO 0600 [facility] Last Admin: 04/05/17 06:14 Dose: 40 mg Prasugrel (Effient) 10 mg PO DAILY [facility] Last Admin: 04/05/17 09:24 Dose: 10 mg - Labs Labs: PT 11.6 Seconds (9.9-11.8) 04/03/17 21:45 INR 1.07 (0.93-1.08) 04/03/17 21:45 APTT 39.7 Seconds (23.7-30.8) H 04/03/17 21:45 - Constitutional Appears: Non-toxic, No Acute Distress - Head Exam Head Exam: ATRAUMATIC, NORMOCEPHALIC - Eye Exam Eye Exam: EOMI, PERRL Pupil Exam: PERRL. absent: Miosis, Mydriatic - ENT Exam ENT Exam: Mucous Membranes Moist, Normal Oropharynx - Neck Exam Neck Exam: Full ROM, Normal Inspection - Respiratory Exam Respiratory Exam: Clear to Ausculation Bilateral. absent: Rales, Rhonchi, Wheezes - Cardiovascular Exam Cardiovascular Exam: RRR, +S1, +S2. absent: Gallop, Rubs - GI/Abdominal Exam GI & Abdominal Exam: Soft, Normal Bowel Sounds. absent: Distended, Firm, Guarding, Rigid, Tenderness, Organomegaly, Rebound - Extremities Exam Extremities Exam: Normal Inspection. absent: Pedal Edema - Neurological Exam Neurological Exam: Alert, Awake - Psychiatric Exam Psychiatric exam: Normal Affect, Normal Mood - Skin Skin Exam: Dry, Intact, Normal Color, Warm Assessment and Plan - Assessment and Plan (Free Text) Assessment: 62 year old female with history of Hypertension, Hyperlipidemia, CKD, Hypothyroidism, multiple cardiac stents (last 05/2016) on Effient, SLE, scleroderma, esophageal dysmotility, and long segment Greene's esophagus presenting with weakness. Recent discharge for anemia status post colonoscopy performed 03/21/17 showed sigmoid erosions without stigmata of bleeding and no biopsy due to being on Effient. Recent EGD 02/19/17 showed no stigmata of recent bleeding and long segment Greene's esophagus C0-M6. Plan: >likely symptomatic bradycardia/hypotension 2/2 medications >cardiology managing- adjusted medications >chronic anemia >no overt GI blood loss >Hem/Onc managing- outpatient follow up >heart healthy diet >will benefit from outpatient follow up for capsule endoscopy >will follow clinical course <Guillaume Lopez - Last Filed: 04/05/17 12:41> Objective - Vital Signs/Intake and Output Vital Signs (last 24 hours): Temp Pulse Resp BP Pulse Ox 98.3 F 65 18 165/82 H 97 04/05/17 06:00 04/05/17 10:00 04/05/17 06:00 04/05/17 09:24 04/05/17 06:00 - Medications Medications: Current Medications Atorvastatin Calcium (Lipitor) 40 mg PO DAILY [facility] Last Admin: 04/05/17 09:24 Dose: 40 mg Iron Sucrose 100 mg/ Sodium (Chloride) 105 mls @ 210 mls/hr IVPB 1700 [facility] Last Admin: 04/04/17 17:11 Dose: 210 mls/hr Levothyroxine Sodium (Synthroid) 150 mcg PO ACB [facility] Last Admin: 08/24/17 09:27 Dose: 150 mcg Losartan Potassium (Cozaar) 50 mg PO DAILY [facility] Last Admin: 04/05/17 09:24 Dose: 50 mg Pantoprazole Sodium (Protonix Ec Tab) 40 mg PO 0600 [facility] Last Admin: 04/05/17 06:14 Dose: 40 mg Prasugrel (Effient) 10 mg PO DAILY [facility] Last Admin: 04/05/17 09:24 Dose: 10 mg - Labs Labs: PT 11.6 Seconds (9.9-11.8) 04/03/17 21:45 INR 1.07 (0.93-1.08) 04/03/17 21:45 APTT 39.7 Seconds (23.7-30.8) H 04/03/17 21:45 Attending/Attestation - Attestation I have personally seen and examined this patient.: Yes I have fully participated in the care of the patient.: Yes I have reviewed all pertinent clinical information, including history, physical exam and plan: Yes Notes (Text): 04/05/17 12:25 62 year old female with h/o HTN, HLD, CKD, Hypothyroidism, CAD s/p cardiac stents, LAUREN, Scleroderma, Greene's esophagus admitted with dizziness, also with chronic iron deficiency anemia. 1. Iron deficiency anemia 2. Occult blood positive Plan: -no overt signs of bleeding -hemoglobin stable -patient's dizziness may be more likely related to medication induced bradycardia, which has since been adjusted by cardiology -may consider blood transfusion for symptomatic anemia prior to discharge -recommend outpatient VCE, to be arranged 04/23 to evaluate small bowel -she did have egd demonstrating greene's esophagus 02/26 and colonoscopy with mild erosions in the sigmoid 03/29 -need to evaluate the small bowel for sources of occult blood loss -discussed the case at length with the patient, , Dr. Hayward, and Dr. Morgan
--- NOTE | 2017-04-05 13:51 | CP.PCM.PN ---
Subjective - Date & Time of Evaluation Date of Evaluation: 04/05/17 Time of Evaluation: 13:43 - Subjective Subjective: Follow up Nephrology Consultation: Assessment: Stable Acute Kidney Injury (N17.9) likely due to hemodyanmic changes, hypotension initially ? dehydration/hypovolemia: resolved Hypertensive Chronic Kidney Disease (I12.9) Chronic Kidney Disease (N18.9) Stage 2/3 without proteinuria (R80.9) likely due to Hx of IgA nephropathy Iron def Anemia (D64.9), HTN (I12.9) hx of CAD, scleroderma, SLE (no evidence of lupus nephritis) Leukopenia, Anemia Hypokalemia, hypomagnesemia Plan d/c IVF now. Supplement K and Mag as ordered Hypertension control with meds as ordered. Patient started back on ARB. will add norvasc 5 mg too. will check AM cortisol, renin/juani and metanephrine too. GI/heme eval of her anemia. planned for endoscopic eval. Degree of anemia not correlating with early stages of CKD. Dose meds/antibiotics for improved GFR. Avoid fleets enema/magnesium based laxatives. Avoid nephrotoxins/NSAIDs/ iodinated contrast (unless needed emergently) Glycemic control Further work up/management as per primary team Thanks for allowing me to participate in care of your patient. Will follow patient with you. Please call if any Qs. Dr Tyler Moreira Office: [phone] Chief Complaint; No one knows, what's going on with me. Reason for consult: DEANA and HTN HPI: Pt is a 62 y/o F with hx of SLE, scleroderma, CAD, chronic dysphagia, greene esophagus, hypertension and biopsy proven IgA nephropathy in 2012 and CKD stage 2/3 with baseline cr 1.1-1.4 mg/dL, also Anemia, MGUS (f/up by heme) presented with complaints of dizziness, hypotension episode also anemia, DEANA. seen by GI, cardio and heme. pt was eating puree diet for 1 week prior to onset of symptoms Subjective: Denies chest pain, palpitation, shortness of breath, leg swelling/ dizziness. says BP high now ROS: Constitutional Symptoms: Denies fever. No chills. No Recent Weight Changes Eyes: denies change in vision, denies watery eyes, denies double vision Ears/Nose/Mouth/Throat: Denies Abnormal Taste. No Bad breath no Bad Taste. has chronic difficulty in swallowing. Cardiovascular: No chest pain. There is no shortness of breath. No palpitations. Pulmonary: No shortness of breath no cough. Gastrointestinal: denies abdominal pain No nausea. No vomiting. Denies change in bowel habits. Denies Bleeding Genitourinary: No Change in force of strain when urinating. No increase in urinary frequency. No pain while urinating. Denies blood in urine. Neurological: Denies headaches. No dizziness now. Denies loss of balance. Denies weakness, denies tingling/numbness Dermatological: No Rash or Bruising or ulcers. Psychiatric: Denies Anxiety. No depression. Denies hallucinations. Rheumatological: No joint pain. Denies Joint swelling Endocrine: Denies tiredness/Fatigue denies Heat/Cold Intolerance. All other negative Physical Examination: General Appearance: Comfortable, in no acute respiratory distress, co-operative . Vitals reviewed and noted as below Head; Atraumatic, normocephalic ENT: no ulcers no thrush. Tongue is midline. Oropharynx: no rash or ulcers. EYES: Pupils are equal, round and reactive to light accommodation. Eye muscles and extraocular movement intact. Sclera is anicteric. Neck; supple no lymphadenopathy, no thyromegaly or bruit Lungs: Normal respiratory rate/effort. Breath sounds bilateral equal and clear Heart: Normal rate. s1s2 normal. No rub or gallop. Extremities: no edema. No varicose veins. minimal puffiness around ankle but no pitting edema. Neurological: Patient is alert, awake and oriented to person, place and time. No focal deficit. Strength bilateral appropriate and equal Skin: Warm and dry. Normal turgor. No rash. Palpitation: Normal elasticity for age Abdomen: Abdomen is soft. Bowel sounds +. There is no abdominal tenderness, no guarding/rigidity no organomegaly Psych: normal insight and normal affect/mood MSK: no joint tenderness or swelling. Digits and nails normal, no deformity : kidney or bladder not palpable Labs/imaging/EKG reviewed. Past medical history, past surgical history, family history, social history, allergy reviewed and noted as below Family hx: no hx of CKD. Rest non-contributory Work up: kidney BX 2013: IgA nephropathy [id number] UA: no blood or protein Imaging: unremarkable for kidneys Objective - Vital Signs/Intake and Output Vital Signs (last 24 hours): Temp Pulse Resp BP Pulse Ox 97.9 F 54 L 21 165/82 H 97 04/05/17 12:00 04/05/17 12:00 04/05/17 12:00 04/05/17 09:24 04/05/17 06:00 - Medications Medications: Current Medications Atorvastatin Calcium (Lipitor) 40 mg PO DAILY [facility] Last Admin: 04/05/17 09:24 Dose: 40 mg Iron Sucrose 100 mg/ Sodium (Chloride) 105 mls @ 210 mls/hr IVPB 1700 [facility] Last Admin: 04/04/17 17:11 Dose: 210 mls/hr Levothyroxine Sodium (Synthroid) 150 mcg PO ACB [facility] Last Admin: 04/05/17 09:27 Dose: 150 mcg Losartan Potassium (Cozaar) 50 mg PO DAILY [facility] Last Admin: 04/05/17 09:24 Dose: 50 mg Pantoprazole Sodium (Protonix Ec Tab) 40 mg PO 0600 [facility] Last Admin: 04/05/17 06:14 Dose: 40 mg Prasugrel (Effient) 10 mg PO DAILY [facility] Last Admin: 04/05/17 09:24 Dose: 10 mg - Labs Labs: PT 11.6 Seconds (9.9-11.8) 04/03/17 21:45 INR 1.07 (0.93-1.08) 04/03/17 21:45 APTT 39.7 Seconds (23.7-30.8) H 04/03/17 21:45
[2017-04-05] MEDS ORDERED: Lidocaine 2% Inj (20ml) IJ STA (14:08)
[2017-04-05 17:51] VITALS: RESP 20
--- NOTE | 2017-04-05 18:41 | CP.PCM.PN ---
Subjective - Date & Time of Evaluation Date of Evaluation: 04/05/17 Time of Evaluation: 17:39 - Subjective Subjective: She feels well today, except for fatigue. Denies bleeding. Tolerating diet well. Objective - Vital Signs/Intake and Output Vital Signs (last 24 hours): Temp Pulse Resp BP Pulse Ox 98.6 F 63 20 167/83 H 97 04/05/17 17:50 04/05/17 17:50 04/05/17 17:50 04/05/17 17:50 04/05/17 06:00 - Medications Medications: Current Medications Amlodipine Besylate (Norvasc) 5 mg PO DAILY [facility] Last Admin: 04/05/17 15:40 Dose: 5 mg Atorvastatin Calcium (Lipitor) 40 mg PO DAILY [facility] Last Admin: 04/05/17 09:24 Dose: 40 mg Iron Sucrose 100 mg/ Sodium (Chloride) 105 mls @ 210 mls/hr IVPB 1700 [facility] Last Admin: 04/05/17 17:56 Dose: 210 mls/hr Levothyroxine Sodium (Synthroid) 150 mcg PO ACB [facility] Last Admin: 04/05/17 09:27 Dose: 150 mcg Losartan Potassium (Cozaar) 50 mg PO DAILY [facility] Last Admin: 04/05/17 09:24 Dose: 50 mg Pantoprazole Sodium (Protonix Ec Tab) 40 mg PO 0600 [facility] Last Admin: 04/05/17 06:14 Dose: 40 mg Prasugrel (Effient) 10 mg PO DAILY [facility] Last Admin: 04/05/17 09:24 Dose: 10 mg - Labs Labs: PT 11.6 Seconds (9.9-11.8) 04/03/17 21:45 INR 1.07 (0.93-1.08) 04/03/17 21:45 APTT 39.7 Seconds (23.7-30.8) H 04/03/17 21:45 - Head Exam Head Exam: ATRAUMATIC, NORMAL INSPECTION - Eye Exam Eye Exam: EOMI, PERRL. absent: Scleral icterus - ENT Exam ENT Exam: Mucous Membranes Moist - Neck Exam Neck Exam: absent: Lymphadenopathy - Respiratory Exam Respiratory Exam: Clear to Ausculation Bilateral - Cardiovascular Exam Cardiovascular Exam: REGULAR RHYTHM - GI/Abdominal Exam GI & Abdominal Exam: Soft, Normal Bowel Sounds. absent: Tenderness - Extremities Exam Extremities Exam: absent: Pedal Edema - Neurological Exam Neurological Exam: Alert, Oriented x3 Assessment and Plan - Assessment and Plan (Free Text) Assessment: Chronic anemia Leukopenia She underwent bone marrow aspiration and biopsy today. Procedure note- Left Iliac Crest: After informed consent was obtained the patient was placed in the prone position. The left posterior iliac crest was located and prepped and draped in a sterile fashion. 2% Lidocaine was injected for local anesthesia. An [place] needle was placed and a bone marrow aspirate was obtained. A [employer] needle was placed in a different location and a core biopsy was obtained. Pressure was held until hemostasis was obtained. A sterile dressing was applied. The patient tolerated the procedure well with no apparent complications. Estimated blood loss was minimal. The specimen was sent to pathology. Will follow up results from pathology. Continue IV Venofer. Transfuse prn. Monitor for bleeding. Sergey Bass
[2017-04-05] MEDS: Sodium Chloride 0.9% 1,000 ML IV SCH (20:51)
--- NOTE | 2017-04-05 20:56 | CP.PCM.PN ---
<TreasureRaymond Harris - Last Filed: 04/05/17 20:52> Subjective - Date & Time of Evaluation Date of Evaluation: 04/05/17 Time of Evaluation: 07:10 - Subjective Subjective: Pt s/e bedside. Patient feels much less fatigued and states that she feels more energetic today. Pt denies F/ch/n/v/d/sob/cp. Pt further denies hematochezia, hematuria, hemoptysis. Still gets tired when she walks around. No further complaints. Spoke to patient's , who is very upset about her readmission to the hospital. Discussed the plan with him per Heme and GI Objective - Vital Signs/Intake and Output Vital Signs (last 24 hours): Temp Pulse Resp BP Pulse Ox 98.6 F 68 20 167/83 H 97 04/05/17 17:50 04/05/17 18:00 04/05/17 17:50 04/05/17 17:50 04/05/17 06:00 - Medications Medications: Current Medications Amlodipine Besylate (Norvasc) 5 mg PO DAILY [facility] Last Admin: 04/05/17 15:40 Dose: 5 mg Atorvastatin Calcium (Lipitor) 40 mg PO DAILY [facility] Last Admin: 04/05/17 09:24 Dose: 40 mg Iron Sucrose 100 mg/ Sodium (Chloride) 105 mls @ 210 mls/hr IVPB 1700 [facility] Last Admin: 04/05/17 17:56 Dose: 210 mls/hr Levothyroxine Sodium (Synthroid) 150 mcg PO ACB [facility] Last Admin: 04/05/17 09:27 Dose: 150 mcg Losartan Potassium (Cozaar) 50 mg PO DAILY [facility] Last Admin: 04/05/17 09:24 Dose: 50 mg Pantoprazole Sodium (Protonix Ec Tab) 40 mg PO 0600 [facility] Last Admin: 04/05/17 06:14 Dose: 40 mg Prasugrel (Effient) 10 mg PO DAILY [facility] Last Admin: 04/05/17 09:24 Dose: 10 mg - Labs Labs: PT 11.6 Seconds (9.9-11.8) 04/03/17 21:45 INR 1.07 (0.93-1.08) 04/03/17 21:45 APTT 39.7 Seconds (23.7-30.8) H 04/03/17 21:45 - Additional Findings Additional findings: VS as above Constitutional: +fatigued female, a&o x 4, nad, Head and Neck: neck supple, no jvd, trachea midline, carotid midline, no cervical/head mass Eyes: +conjunctival pallor; herrera, eom intact ENT: +superficial blood vessels; +angled cheilosis; auditory acuity grossly intact, throat not congested, no nasal deformity Cardio: +pansystolic murmur; +orthostatic vital signs from laying to standing; rrr, no r/g, no carotid bruit, nml s1, s2 Pulm: no accessory muscle use, equal nml breath sounds bilaterally, ctab Abd: no hepatomegaly, no splenomegaly; s/nt/nd, nbs x 4 q, no palpable masses Derm: +ecchymoses; no petechiae, purpura, angiomas, hair coarseness; no rashes, no ulcers, no lesions Extr: no edema, no cyanosis, no calf tenderness, no lesions, no varicosities Neuro: cn II-XII grossly intact, ue and le 5/5 muscle strength bilaterally , no los ue, le bilaterally and core Assessment and Plan - Assessment and Plan (Free Text) Assessment: Mrs. Duque is a 62 year old female with a past medical history of HTN, HLD, SLE , Scleroderma, Greene's Esophagus, CKD, CAD, Hypothyroidism, and NSTEMI s/p stent placements, who presented to the ED after having fatigue and hypotension at her PMD's office. Patient was recently admitted with Anemia (03/29) Plan: 1. Symptomatic Anemia likely 2/2 myelodysplastic syndrome VS [place] Syndrome VS Unknown - SOB on exertion - H/H: 8.1/.7: dropped from admission. Likely dilutional. Fluids stopped, will continue to monitor - Fe studies: Increased Iron, Decreased TIBC, likely 2/2 to therapeutic iron being given - B12 within normal limits - Type and screen done - Heme C/s: Dr. Bass Performed bone aspiration and BM biopsy 04/05 - GI C/s: Dr. Wolf Getting diagnostic EGD and Colonoscopy 04/04 - canceled Dr. Guillaume Lopez: -no overt signs of bleeding -hemoglobin stable -patient's dizziness may be more likely related to medication induced bradycardia, which has since been adjusted by cardiology -may consider blood transfusion for symptomatic anemia prior to discharge -recommend outpatient VCE, to be arranged 04/23 to evaluate small bowel -she did have egd demonstrating greene's esophagus 02/26 and colonoscopy with mild erosions in the sigmoid 03/29 -need to evaluate the small bowel for sources of occult blood loss 2. Symptomatic Hypotension - Resolved - Orthostatics Positive on admission - not anymore - 167/87 current BP - IVF - NS, 1 bolus of 1L, then two bags. Currently hypertensive, ordered Norvasc per nephro - Medications adjusted per cardio, Dr. Morgan 3. DEANA likely 2/2 Hemodynamic Changes - Cr: 2.0, baseline is ~1.2 - Fena, CrCl, Mg, Phos, CMP, CBC, Uric Acid pending - Nephro consulted: Dr. Moreira Hypertension control with meds as ordered. Patient started back on ARB. will add norvasc 5 mg too. will check AM cortisol, renin/juani and metanephrine. 4. Hx/O HLD - Continue Lipitor 5. Hx/o Hypothyroidism - Continue Synthroid 6. Hx of Depression - Prozac and Doxepin 7. History of SLE -Cont home hydroxychloroquine 8. GI/DVT Prophylaxis -Protonix/scd's Dispo: Source of patient's anemia needs to be determined. Heme performed bone marrow aspiration Patient seen and case discussed with attending, Dr. Hayward <Donnell Hayward - Last Filed: 04/06/17 10:40> Objective - Vital Signs/Intake and Output Vital Signs (last 24 hours): Temp Pulse Resp BP Pulse Ox 98.6 F 71 20 137/73 98 04/06/17 06:00 04/06/17 06:00 04/06/17 06:00 04/06/17 06:00 04/06/17 06:00 Intake and Output: 04/06/17 04/06/17 06:59 18:59 Intake Total 300 Output Total 0 Balance 300 - Medications Medications: Current Medications Amlodipine Besylate (Norvasc) 5 mg PO DAILY [facility] Last Admin: 04/05/17 15:40 Dose: 5 mg Atorvastatin Calcium (Lipitor) 40 mg PO DAILY [facility] Last Admin: 04/05/17 09:24 Dose: 40 mg Iron Sucrose 100 mg/ Sodium (Chloride) 105 mls @ 210 mls/hr IVPB 1700 [facility] Last Admin: 04/05/17 17:56 Dose: 210 mls/hr Levothyroxine Sodium (Synthroid) 150 mcg PO ACB [facility] Last Admin: 04/05/17 09:27 Dose: 150 mcg Losartan Potassium (Cozaar) 50 mg PO DAILY [facility] Last Admin: 04/05/17 09:24 Dose: 50 mg Pantoprazole Sodium (Protonix Ec Tab) 40 mg PO 0600 [facility] Last Admin: 04/06/17 06:10 Dose: 40 mg Prasugrel (Effient) 10 mg PO DAILY [facility] Last Admin: 04/05/17 09:24 Dose: 10 mg - Labs Labs: 04/06/17 05:30 04/06/17 08:40 PT 11.6 Seconds (9.9-11.8) 04/03/17 21:45 INR 1.07 (0.93-1.08) 04/03/17 21:45 APTT 39.7 Seconds (23.7-30.8) H 04/03/17 21:45 Attending/Attestation - Attestation I have personally seen and examined this patient.: Yes I have fully participated in the care of the patient.: Yes I have reviewed all pertinent clinical information, including history, physical exam and plan: Yes Notes (Text): 04/06/17 10:40 Medical record note done by resident after patient seen and examined by me with discussion for plan of care. The note represents my history, physical, data review and course for the patient.
[2017-04-06 06:01] VITALS: O2SAT 98
[2017-04-06] MEDS: Pantoprazole 40 mg EC Tab PO SCH (06:10)
[2017-04-06 06:22] LABS: BASO # 0.02 K/mm3 (0.0-2.0); BASO % 0.4 % (0.0-3.0); EOS # 0.1 (0.0-0.7); EOS % 1.7 % (1.5-5.0); GRAN # 3.25 (1.4-6.5); GRAN % 67.5 % (50.0-68.0); LYMPH % 20.6 % (22.0-35.0); MEAN CELL VOLUME 87.6 fl (80.0-105.0); MEAN CORPUSCULAR HEMOGLOBIN 27.2 pg (25.0-35.0); MEAN PLATELET VOLUME 10.5 fl (7.0-11.0); MONO # 0.5 (0.1-0.6); MONO % 9.8 % (1.0-6.0); RED CELL DISTRIBUTION WIDTH 18.5 % (11.5-14.5); WHITE BLOOD COUNT 4.8 10^3/ul (4.5-11.0)
--- NOTE | 2017-04-06 08:04 | CP.PCM.PN ---
<Vernell Goodman - Last Filed: 04/06/17 10:37> Subjective - Date & Time of Evaluation Date of Evaluation: 04/06/17 Time of Evaluation: 08:01 - Subjective Subjective: Gastroenterology Fellow/PGY5 Progress Note Patient notes multiple episodes of loose brown stool yesterday. Denies episodes of dizziness or weakness. Tolerating clear liquid diet. 12-point review of systems negative except for as above. Objective - Vital Signs/Intake and Output Vital Signs (last 24 hours): Temp Pulse Resp BP Pulse Ox 98.6 F 71 20 137/73 98 04/06/17 06:00 04/06/17 06:00 04/06/17 06:00 04/06/17 06:00 04/06/17 06:00 Intake and Output: 04/06/17 04/06/17 06:59 18:59 Intake Total 300 Output Total 0 Balance 300 - Medications Medications: Current Medications Amlodipine Besylate (Norvasc) 5 mg PO DAILY [facility] Last Admin: 04/05/17 15:40 Dose: 5 mg Atorvastatin Calcium (Lipitor) 40 mg PO DAILY [facility] Last Admin: 04/05/17 09:24 Dose: 40 mg Iron Sucrose 100 mg/ Sodium (Chloride) 105 mls @ 210 mls/hr IVPB 1700 [facility] Last Admin: 04/05/17 17:56 Dose: 210 mls/hr Levothyroxine Sodium (Synthroid) 150 mcg PO ACB [facility] Last Admin: 04/05/17 09:27 Dose: 150 mcg Losartan Potassium (Cozaar) 50 mg PO DAILY [facility] Last Admin: 04/05/17 09:24 Dose: 50 mg Pantoprazole Sodium (Protonix Ec Tab) 40 mg PO 0600 [facility] Last Admin: 04/06/17 06:10 Dose: 40 mg Prasugrel (Effient) 10 mg PO DAILY [facility] Last Admin: 04/05/17 09:24 Dose: 10 mg - Labs Labs: 04/06/17 05:30 PT 11.6 Seconds (9.9-11.8) 04/03/17 21:45 INR 1.07 (0.93-1.08) 04/03/17 21:45 APTT 39.7 Seconds (23.7-30.8) H 04/03/17 21:45 - Constitutional Appears: Non-toxic, No Acute Distress - Head Exam Head Exam: ATRAUMATIC, NORMOCEPHALIC - Eye Exam Eye Exam: EOMI, PERRL Pupil Exam: PERRL. absent: Miosis, Mydriatic - ENT Exam ENT Exam: Mucous Membranes Moist, Normal Oropharynx - Neck Exam Neck Exam: Full ROM, Normal Inspection - Respiratory Exam Respiratory Exam: Clear to Ausculation Bilateral. absent: Rales, Rhonchi, Wheezes - Cardiovascular Exam Cardiovascular Exam: RRR, +S1, +S2. absent: Gallop, Rubs - GI/Abdominal Exam GI & Abdominal Exam: Soft, Normal Bowel Sounds. absent: Distended, Firm, Guarding, Rigid, Tenderness, Organomegaly, Rebound - Extremities Exam Extremities Exam: Normal Inspection. absent: Pedal Edema - Neurological Exam Neurological Exam: Alert, Awake - Psychiatric Exam Psychiatric exam: Normal Affect, Normal Mood - Skin Skin Exam: Dry, Intact, Normal Color, Warm Assessment and Plan - Assessment and Plan (Free Text) Assessment: 62 year old female with history of Hypertension, Hyperlipidemia, CKD, Hypothyroidism, multiple cardiac stents (last 05/2016) on Effient, SLE, scleroderma, esophageal dysmotility, and long segment Phan's esophagus presenting with weakness. Recent discharge for anemia status post colonoscopy performed 03/21/17 showed sigmoid erosions without stigmata of bleeding and no biopsy due to being on Effient. Recent EGD 02/19/17 showed no stigmata of recent bleeding and long segment Phan's esophagus C0-M6. Plan: >resolved bradycardia and hypotension >cardiology managing- adjusted antihypertensive medications >stable vitals last 24 hours >no overt GI blood loss >H/H stable >heart healthy diet >scheduled for outpatient follow up for capsule endoscopy <Wally Wolf - Last Filed: 04/06/17 11:59> Objective - Vital Signs/Intake and Output Vital Signs (last 24 hours): Temp Pulse Resp BP Pulse Ox 98.6 F 73 20 137/73 98 04/06/17 06:00 04/06/17 11:00 04/06/17 06:00 04/06/17 11:00 04/06/17 06:00 Intake and Output: 04/06/17 04/06/17 06:59 18:59 Intake Total 300 Output Total 0 Balance 300 - Medications Medications: Current Medications Amlodipine Besylate (Norvasc) 5 mg PO DAILY [facility] Last Admin: 04/06/17 11:00 Dose: 5 mg Atorvastatin Calcium (Lipitor) 40 mg PO DAILY [facility] Last Admin: 04/06/17 11:00 Dose: 40 mg Iron Sucrose 100 mg/ Sodium (Chloride) 105 mls @ 210 mls/hr IVPB 1700 [facility] Last Admin: 04/05/17 17:56 Dose: 210 mls/hr Levothyroxine Sodium (Synthroid) 150 mcg PO ACB [facility] Last Admin: 04/06/17 11:01 Dose: 150 mcg Losartan Potassium (Cozaar) 50 mg PO DAILY [facility] Last Admin: 04/06/17 11:00 Dose: 50 mg Pantoprazole Sodium (Protonix Ec Tab) 40 mg PO 0600 [facility] Last Admin: 04/06/17 06:10 Dose: 40 mg Prasugrel (Effient) 10 mg PO DAILY [facility] Last Admin: 04/06/17 11:00 Dose: 10 mg - Labs Labs: 04/06/17 05:30 04/06/17 08:40 PT 11.6 Seconds (9.9-11.8) 04/03/17 21:45 INR 1.07 (0.93-1.08) 04/03/17 21:45 APTT 39.7 Seconds (23.7-30.8) H 04/03/17 21:45 Attending/Attestation - Attestation I have personally seen and examined this patient.: Yes I have fully participated in the care of the patient.: Yes I have reviewed all pertinent clinical information, including history, physical exam and plan: Yes Notes (Text): 04/06/17 11:45 I have seen and examined patient with GI fellow. She is seen resting comfortably in bed watching television. She was able to tolerate farina and puree diet this morning for breakfast without any difficulty. She denies abdominal pain, nausea, vomiting, fever/chills. Review of vitals from today are normal. HTN / Hyperlipidemia SLE / scleroderma Phan's esophagus CAD s/p stent on effient Leukopenia s/p bone marrow biopsy yesterday Anemia, normocytic - Puree diet as tolerated - H/H stable, continue to monitor, no overt bleeding noted - Hypotension/bradycardia have resolved following medication adjustment by cardiology, follow up recommendations - Follow up results of bone marrow biopsy and hematology recommendations - Patient has been scheduled for outpatient capsule study by Dr. Lopez for further evaluation of anemia - Our GI team has been consulted as second opinion, from my perspective it is ok to discharge patient home with subsequent outpatient follow up. Case was discussed this morning with Dr. Rodriguez who is the primary GI physician and with Dr. Hayward. Patient wishes to complete capsule study and have further outpatient follow up with Dr. Rodriguez. Please reconsult as necessary, thank you.
[2017-04-06 08:48] LABS: ALB/GLOB RATIO 1.3 (1.1-1.8); ALKALINE PHOSPHATASE 68 U/L (38-133); ALT/SGPT 23 U/L (7-56); AST/SGOT 24 U/L (15-39); BLOOD UREA NITROGEN 10 mg/dL (7-21); CALCIUM 8.8 mg/dL (8.4-10.5); CARBON DIOXIDE 24 mmol/L (21-33); CHLORIDE 108 mmol/L (98-107); GFR AFRICAN-AMERICAN 51; GLUCOSE,RANDOM 88 mg/dL (70-110); POTASSIUM 4.2 mmol/L (3.6-5.0); SODIUM 143 mmol/L (132-148)
[2017-04-06 08:50] LABS: BILIRUBIN,TOTAL < 0.1 mg/dL (0.2-1.3)
[2017-04-06] MEDS: Levothyroxine 150 MCG TAB PO SCH (11:01)
[2017-04-06 11:56] VITALS: TEMP 98.5
--- NOTE | 2017-04-06 12:25 | PN ---
CARDIOLOGY FOLLOWUP NOTE SUBJECT: The patient's dizziness has resolved since we have stopped the beta-blockers and cut her Cozaar down to 50 mg. The patient is ambulating without symptoms. PHYSICAL EXAMINATION: VITAL SIGNS: Blood pressure is 137/73, heart rate in the 70s. NECK: Negative JVD. LUNGS: Without rales. HEART: Reveals S1, S2. EXTREMITIES: Without edema. LABORATORY DATA: Hemoglobin is 9.0. Chemistries: BUN and creatinine unremarkable. IMPRESSION: 1. Resolution of dizziness. 2. Her dizziness is likely due to her blood pressure medications. 3. Stable angina. 4. Coronary artery disease. 5. Anemia which is stable. PLAN: Given these findings, we will discontinue telemetry today. From a cardiac perspective, the patient can be discharged. Reese Morgan MD
--- NOTE | 2017-04-06 13:11 | CP.PCM.PN ---
Subjective - Date & Time of Evaluation Date of Evaluation: 04/06/17 Time of Evaluation: 13:08 - Subjective Subjective: Follow up Nephrology Consultation: Assessment: Stable Acute Kidney Injury (N17.9) likely due to hemodyanmic changes, hypotension initially ? dehydration/hypovolemia: resolved Hypertensive Chronic Kidney Disease (I12.9) Chronic Kidney Disease (N18.9) Stage 3 without proteinuria (R80.9) likely due to Hx of IgA nephropathy Iron def Anemia (D64.9), HTN (I12.9) hx of CAD, scleroderma, SLE (no evidence of lupus nephritis) Leukopenia, Anemia Hypokalemia, hypomagnesemia Plan Hypertension control with meds as ordered. Patient started back on ARB. added norvasc 5 mg too. sent AM cortisol, renin/juani and metanephrine too. GI/heme eval of her anemia. planned for endoscopic eval as outpt Degree of anemia not correlating with early stages of CKD. she had bone marrow yesterday pt encouraged to maintain adequate oral intake at home and avoid dehydration Dose meds/antibiotics for improved GFR. Avoid fleets enema/magnesium based laxatives. Avoid nephrotoxins/NSAIDs/ iodinated contrast (unless needed emergently) Glycemic control Further work up/management as per primary team Thanks for allowing me to participate in care of your patient. Please call if any Qs. stable for d/c from renal perspective. f/up with Dr Johnson in office 1- [address] Tyler Moreira Office: [phone] Chief Complaint; No one knows, what's going on with me. Reason for consult: DEANA and HTN HPI: Pt is a 62 y/o F with hx of SLE, scleroderma, CAD, chronic dysphagia, greene esophagus, hypertension and biopsy proven IgA nephropathy in 2012 and CKD stage 3 with baseline cr 1.1-1.4 mg/dL, also Anemia, MGUS (f/up by georgie) presented with complaints of dizziness, hypotension episode also anemia, DEANA. seen by GI, cardio and heme. pt was eating puree diet for 1 week prior to onset of symptoms Subjective: Denies chest pain, palpitation, shortness of breath, leg swelling/ dizziness. says going home today ROS: Constitutional Symptoms: Denies fever. No chills. No Recent Weight Changes Eyes: denies change in vision, denies watery eyes, denies double vision Ears/Nose/Mouth/Throat: Denies Abnormal Taste. No Bad breath no Bad Taste. has chronic difficulty in swallowing. Cardiovascular: No chest pain. There is no shortness of breath. No palpitations. Pulmonary: No shortness of breath no cough. Gastrointestinal: denies abdominal pain No nausea. No vomiting. Denies change in bowel habits. Denies Bleeding Genitourinary: No Change in force of strain when urinating. No increase in urinary frequency. No pain while urinating. Denies blood in urine. Neurological: Denies headaches. No dizziness now. Denies loss of balance. Denies weakness, denies tingling/numbness Dermatological: No Rash or Bruising or ulcers. Psychiatric: Denies Anxiety. No depression. Denies hallucinations. Rheumatological: No joint pain. Denies Joint swelling Endocrine: Denies tiredness/Fatigue denies Heat/Cold Intolerance. All other negative Physical Examination: General Appearance: Comfortable, in no acute respiratory distress, co-operative . Vitals reviewed and noted as below Head; Atraumatic, normocephalic ENT: no ulcers no thrush. Tongue is midline. Oropharynx: no rash or ulcers. EYES: Pupils are equal, round and reactive to light accommodation. Eye muscles and extraocular movement intact. Sclera is anicteric. Neck; supple no lymphadenopathy, no thyromegaly or bruit Lungs: Normal respiratory rate/effort. Breath sounds bilateral equal and clear Heart: Normal rate. s1s2 normal. No rub or gallop. Extremities: no edema. No varicose veins. minimal puffiness around ankle but no pitting edema. Neurological: Patient is alert, awake and oriented to person, place and time. No focal deficit. Strength bilateral appropriate and equal Skin: Warm and dry. Normal turgor. No rash. Palpitation: Normal elasticity for age Abdomen: Abdomen is soft. Bowel sounds +. There is no abdominal tenderness, no guarding/rigidity no organomegaly Psych: normal insight and normal affect/mood MSK: no joint tenderness or swelling. Digits and nails normal, no deformity : kidney or bladder not palpable Labs/imaging/EKG reviewed. Past medical history, past surgical history, family history, social history, allergy reviewed and noted as below Family hx: no hx of CKD. Rest non-contributory Work up: kidney BX 2013: IgA nephropathy [id number] UA: no blood or protein Imaging: unremarkable for kidneys Objective - Vital Signs/Intake and Output Vital Signs (last 24 hours): Temp Pulse Resp BP Pulse Ox 98.5 F 65 20 165/85 H 98 04/06/17 11:55 04/06/17 11:55 04/06/17 11:55 04/06/17 11:55 04/06/17 06:00 Intake and Output: 04/06/17 04/06/17 06:59 18:59 Intake Total 300 Output Total 0 Balance 300 - Medications Medications: Current Medications Amlodipine Besylate (Norvasc) 5 mg PO DAILY [facility] Last Admin: 04/06/17 11:00 Dose: 5 mg Atorvastatin Calcium (Lipitor) 40 mg PO DAILY [facility] Last Admin: 04/06/17 11:00 Dose: 40 mg Iron Sucrose 100 mg/ Sodium (Chloride) 105 mls @ 210 mls/hr IVPB 1700 [facility] Last Admin: 04/05/17 17:56 Dose: 210 mls/hr Levothyroxine Sodium (Synthroid) 150 mcg PO ACB [facility] Last Admin: 04/06/17 11:01 Dose: 150 mcg Losartan Potassium (Cozaar) 50 mg PO DAILY [facility] Last Admin: 04/06/17 11:00 Dose: 50 mg Pantoprazole Sodium (Protonix Ec Tab) 40 mg PO 0600 [facility] Last Admin: 04/06/17 06:10 Dose: 40 mg Prasugrel (Effient) 10 mg PO DAILY [facility] Last Admin: 04/06/17 11:00 Dose: 10 mg - Labs Labs: 04/06/17 05:30 04/06/17 08:40 PT 11.6 Seconds (9.9-11.8) 04/03/17 21:45 INR 1.07 (0.93-1.08) 04/03/17 21:45 APTT 39.7 Seconds (23.7-30.8) H 04/03/17 21:45
--- NOTE | 2017-04-06 13:21 | CP.PCM.DIS ---
Provider - Provider Date of Admission: 04/05/17 11:35 Attending physician: Donnell Hayward MD Primary care physician: Donnell Hayward MD Consults: Dr. Bass - Robel Morgan - Cardiology Dr. Moreira - Nephro Dr. Wolf - GI Time Spent in preparation of Discharge (in minutes): 45 Hospital Course - Lab Results Lab Results: Most Recent Lab Values WBC 4.8 10^3/ul (4.5-11.0) D 04/06/17 05:30 RBC 3.31 10^6/uL (3.5-6.1) L 04/06/17 05:30 Hgb 9.0 g/dL (12.0-16.0) L 04/06/17 05:30 Hct 29.0 % (36.0-48.0) L 04/06/17 05:30 MCV 87.6 fl (80.0-105.0) 04/06/17 05:30 MCH 27.2 pg (25.0-35.0) 04/06/17 05:30 MCHC 31.0 g/dl (31.0-37.0) 04/06/17 05:30 RDW 18.5 % (11.5-14.5) H 04/06/17 05:30 Plt Count 223 10^3/uL (120.0-450.0) 04/06/17 05:30 MPV 10.5 fl (7.0-11.0) 04/06/17 05:30 Gran % 67.5 % (50.0-68.0) 04/06/17 05:30 Lymph % (Auto) 20.6 % (22.0-35.0) L 04/06/17 05:30 [place] % (Auto) 9.8 % (1.0-6.0) H 04/06/17 05:30 Eos % (Auto) 1.7 % (1.5-5.0) 04/06/17 05:30 Baso % (Auto) 0.4 % (0.0-3.0) 04/06/17 05:30 Gran # 3.25 (1.4-6.5) 04/06/17 05:30 Lymph # 1.0 (1.2-3.4) L 04/06/17 05:30 [place] # 0.5 (0.1-0.6) 04/06/17 05:30 Eos # 0.1 (0.0-0.7) 04/06/17 05:30 Baso # 0.02 K/mm3 (0.0-2.0) 04/06/17 05:30 Retic Count 1.20 % (0.5-1.5) 04/04/17 08:38 PT 11.6 Seconds (9.9-11.8) 04/03/17 21:45 INR 1.07 (0.93-1.08) 04/03/17 21:45 APTT 39.7 Seconds (23.7-30.8) H 04/03/17 21:45 Sodium 143 mmol/L (132-148) 04/06/17 08:40 Potassium 4.2 mmol/L (3.6-5.0) 04/06/17 08:40 Chloride 108 mmol/L (98-107) H 04/06/17 08:40 Carbon Dioxide 24 mmol/L (21-33) 04/06/17 08:40 Anion Gap 15 (10-20) 04/06/17 08:40 BUN 10 mg/dL (7-21) 04/06/17 08:40 Creatinine 1.3 mg/dL (0.5-1.4) 04/06/17 08:40 Est GFR ( Amer) 51 04/06/17 08:40 Est GFR (Non-Af Amer) 42 04/06/17 08:40 Random Glucose 88 mg/dL (70-110) 04/06/17 08:40 Calcium 8.8 mg/dL (8.4-10.5) 04/06/17 08:40 Phosphorus 2.8 mg/dL (2.5-4.5) 04/05/17 05:45 Magnesium 2.0 mg/dL (1.7-2.2) 04/06/17 08:40 Iron 344 ug/dL (45-180) H 04/03/17 21:45 TIBC 240 ug/dL (265-497) L 04/03/17 21:45 % Saturation 143 % (20-55) H 04/03/17 21:45 Total Bilirubin < 0.1 mg/dL (0.2-1.3) L 04/06/17 08:40 AST 24 U/L (15-39) 04/06/17 08:40 ALT 23 U/L (7-56) 04/06/17 08:40 Alkaline Phosphatase 68 U/L (38-133) 04/06/17 08:40 Total Creatine Kinase 47 U/L (35-230) 04/03/17 13:55 Troponin I < 0.01 ng/mL 04/03/17 13:55 Total Protein 6.0 g/dL (5.8-8.3) 04/06/17 08:40 Albumin 3.4 g/dL (3.0-4.8) 04/06/17 08:40 Globulin 2.6 gm/dL 04/06/17 08:40 Albumin/Globulin Ratio 1.3 (1.1-1.8) 04/06/17 08:40 Vitamin B12 477 pg/mL (239-931) 04/03/17 21:45 RBC Folate 695 ng/mL RBC (>280) 04/03/17 21:45 Cortisol AM Sample 8.6 ug/dL (4.46-22.7) 04/06/17 05:30 Urine Color Yellow (YELLOW) 04/03/17 23:00 Urine Appearance Clear (CLEAR) 04/03/17 23:00 Urine pH 6.0 (4.7-8.0) 04/03/17 23:00 Ur Specific [place] 1.010 (1.005-1.035) 04/03/17 23:00 Urine Protein Negative mg/dL (<30 mg/dL) 04/03/17 23:00 Urine Glucose (UA) Negative mg/dL (NEGATIVE) 04/03/17 23:00 Urine Ketones Negative mg/dL (NEGATIVE) 04/03/17 23:00 Urine Blood Negative (NEGATIVE) 04/03/17 23:00 Urine Nitrate Negative (NEGATIVE) 04/03/17 23:00 Urine Bilirubin Negative (NEGATIVE) 04/03/17 23:00 Urine Urobilinogen 0.2 E.U./dL (<1 E.U./dL) 04/03/17 23:00 Ur Leukocyte Esterase Negative Myla/uL (NEGATIVE) 04/03/17 23:00 Ur Random Sodium 88 meq/L 04/03/17 23:00 Stool Occult Blood Positive (NEGATIVE) H 04/04/17 15:55 Blood Type O NEGATIVE 04/03/17 13:55 Antibody Screen Negative 04/03/17 13:55 BBK History Checked Patient has bt 04/03/17 13:55 - Hospital Course Hospital Course: Mrs. Duque is a 62 year old female with a past medical history of HTN, HLD, SLE , Scleroderma, Phan's Esophagus, CKD, CAD, Hypothyroidism, and NSTEMI s/p stent placements, who presented to the ED after having fatigue and hypotension at her PMD's office. She stated that at home, she had been feeling fatigued, dizzy, and had had dyspnea on exertion, and has had blurry vision 'as if she's coming off of anesthesia.' This occured mostly when she stood up from the sitting position. Pt denies F/Ch/N/V/D/CP. Patient further denies loss of vision. Imaging Performed: CXR: No acute disease On the first day in the hospital, orthostatics were performed on Mrs. Duque, and were positive. She was started on a bolus of fluid and then given IVF hydration. The following day, Mrs. Duque became hypertensive, and the fluids were stopped. Her blood pressure continued to climb, thus Norvasc was started. Mrs. Duque was also worked up for her anemia while in the hospital. She has had a few months' history now of pancytopenia. Dr. Bass, her donor relations officer, was consulted, and he agreed to perform a BM aspiration while she was an inpatient. She is to follow up those results as an outpatient. She was also found to have an increased iron and decreased TIBC level, so her daily iron sucrose was stopped. Dr. Rodriguez will be doing a push enteroscopy outpatient for her. Patient's BP was 137/73 the morning of discharge. Later in the morning, she became hypertensive, but this is normal for her. Patient was found stable for discharge. Discharge Exam - Head Exam Head Exam: ATRAUMATIC, NORMOCEPHALIC - Additional Findings Additional findings: VS as above Constitutional: +fatigued female, a&o x 4, nad, Head and Neck: neck supple, no jvd, trachea midline, carotid midline, no cervical/head mass Eyes: +conjunctival pallor; herrera, eom intact ENT: +superficial blood vessels; auditory acuity grossly intact, throat not congested, no nasal deformity Cardio: +pansystolic murmur; +orthostatic vital signs from laying to standing; rrr, no r/g, no carotid bruit, nml s1, s2 Pulm: no accessory muscle use, equal nml breath sounds bilaterally, ctab Abd: no hepatomegaly, no splenomegaly; s/nt/nd, nbs x 4 q, no palpable masses Derm: +ecchymoses; no petechiae, purpura, angiomas, hair coarseness; no rashes, no ulcers, no lesions Extr: no edema, no cyanosis, no calf tenderness, no lesions, no varicosities Neuro: cn II-XII grossly intact, ue and le 5/5 muscle strength bilaterally , no los ue, le bilaterally and core Discharge Plan - Follow Up Plan Condition: FAIR Disposition: HOME/ ROUTINE Additional Instructions: 1. Please follow up outpatient with your GI doctor, Dr. Rodriguez, for your Push Enteroscopy 2. Please follow up results of your bone marrow biopsy with your Mathematics Department Chair office, Dr. Catalan 3. Please follow up with Dr. Hayward within one week 4. Please return to the ED should your symptoms continue or worsen Referrals: Donnell Hayward MD [Primary Care Provider] -
[2017-04-06 14:56] VITALS: BP 178/64; PULSE 67
[2017-04-09 11:58] LABS: METANEPHRINES <25 pg/mL (<=57); TOTAL METANEPHRINES 54 pg/mL (<=205)
[2017-04-11 05:29] LABS: ALDO/PRA RATIO 13.3 Ratio (0.9-28.9)
== END 2017-04-06 15:52 | disposition home or self-care (01) | DRG 812 ==
LOC: ED 13:17 → ERH 14:48 → 2RNO 16:09 → OBSVTOIN 04-05 11:35
PROVIDERS: ADMIT Internal Medicine; ATTEND Internal Medicine
PROC: 07DR3ZX Extraction of Iliac Bone Marrow, Percutaneous Approach, Diagnostic (ICD-10-PCS; principal; 2017-04-05)
DX: D50.9 Iron deficiency anemia, unspecified (principal); D61.818 Other pancytopenia; M32.9 Systemic lupus erythematosus, unspecified; I95.2 Hypotension due to drugs; N17.9 Acute kidney failure, unspecified; M34.9 Systemic sclerosis, unspecified; N18.3 Chronic kidney disease, stage 3 (moderate); E83.42 Hypomagnesemia; E86.0 Dehydration; E86.1 Hypovolemia; I12.9 Hypertensive chronic kidney disease with stage 1 through stage 4 chronic kidney disease, or unspecified chronic kidney disease; K22.70 Barrett's esophagus without dysplasia; I25.118 Atherosclerotic heart disease of native coronary artery with other forms of angina pectoris; E78.5 Hyperlipidemia, unspecified; E78.00 Pure hypercholesterolemia, unspecified; R00.1 Bradycardia, unspecified; E03.9 Hypothyroidism, unspecified; F32.9 Major depressive disorder, single episode, unspecified; E87.6 Hypokalemia; I25.2 Old myocardial infarction; Z95.5 Presence of coronary angioplasty implant and graft

== ENCOUNTER 2017-05-22 09:03 | Day surgery (SDC) | payer MEDICARE, MEDICAID ==
[2017-05-17 12:09] VITALS: BMI 25.3
[2017-05-22 10:54] LABS: HEMATOCRIT 35.8 % (36.0-48.0); MEAN CELL VOLUME 89.5 fl (80.0-105.0); MEAN CORPUSCULAR HGB CONC 31.3 g/dl (31.0-37.0); RED CELL DISTRIBUTION WIDTH 17.7 % (11.5-14.5); WHITE BLOOD COUNT 4.4 10^3/ul (4.5-11.0)
[2017-05-22] MEDS ORDERED: Propofol 10 mg/ml Inj (20 ML) ONE (11:39)
[2017-05-22] MEDS ORDERED: Lidocaine 2% Inj (20ml) ONE (11:39)
[2017-05-22] MEDS ORDERED: Sodium Chloride 0.9% 1,000 ML IV SCH (12:00)
[2017-05-22 13:22] VITALS: BP 131/71; PULSE 59; RESP 17; TEMP 97.7; O2SAT 96
== END 2017-05-22 13:48 | disposition home or self-care (01) ==
LOC: ENDO 09:03
PROVIDERS: ATTEND Internal Medicine Gastroenterology
DX: K22.70 Barrett's esophagus without dysplasia (principal); K29.70 Gastritis, unspecified, without bleeding; K31.84 Gastroparesis; T18.3XXA Foreign body in small intestine, initial encounter; D50.9 Iron deficiency anemia, unspecified
CPT/HCPCS: 36415; 43239; 85027; 88305; 88312; 88342; J2704; J3010; J7040 ×2

== ENCOUNTER 2018-03-28 06:38 | Day surgery (SDC) | payer MEDICARE, MEDICAID ==
[2018-03-20 12:58] VITALS: BMI 26.2
[2018-03-28 08:04] LABS: BASO # 0.01 K/mm3 (0.0-2.0); BASO % 0.3 % (0.0-3.0); EOS # 0.1 (0.0-0.7); EOS % 2.3 % (1.5-5.0); GRAN # 2.28 (1.4-6.5); GRAN % 58.8 % (50.0-68.0); HEMOGLOBIN 14.3 g/dL (12.0-16.0); LYMPH # 1.2 (1.2-3.4); LYMPH % 30.4 % (22.0-35.0); MEAN CELL VOLUME 92.3 fl (80.0-105.0); MEAN CORPUSCULAR HEMOGLOBIN 30.7 pg (25.0-35.0); MEAN CORPUSCULAR HGB CONC 33.3 g/dl (31.0-37.0); MEAN PLATELET VOLUME 10.5 fl (7.0-11.0); MONO # 0.3 (0.1-0.6); MONO % 8.2 % (1.0-6.0); RBC 4.66 10^6/uL (3.5-6.1); RED CELL DISTRIBUTION WIDTH 14.1 % (11.5-14.5); WHITE BLOOD COUNT 3.9 10^3/ul (4.5-11.0)
[2018-03-28 08:06] LABS: CALCIUM 9.4 mg/dL (8.4-10.5)
[2018-03-28 08:07] LABS: INR 0.99; PARTIAL THROMBOPLASTIN TIME 32.7 Seconds (25.1-36.5); PROTHROMBIN TIME 11.4 SECONDS (9.4-12.5)
[2018-03-28] MEDS ORDERED: Lidocaine PF 2% (5 ml) Inj (For Cardiac Arrhy) ONE (08:38)
[2018-03-28] MEDS ORDERED: Iodixanol 320 MG/ML 200 ML BOTTLE IV ONE (08:38)
[2018-03-28] MEDS ORDERED: Midazolam 2 MG/2 ML VIAL ONE ×2 (09:01→09:13)
[2018-03-28 09:24] VITALS: RESP 18
[2018-03-28] MEDS ORDERED: Sodium Chloride 0.9% 1,000 ML IV SCH (09:30)
[2018-03-28 09:45] VITALS: TEMP 97.8
--- NOTE | 2018-03-28 10:16 | CARDCATH ---
Copied To: Reese Morgan MD Attending MD: Reese Morgan MD PROCEDURE DATE: 03/28/2018 HISTORY: The patient is a 63-year-old woman with multiple cardiac risk factors as well as PTCA and stent in the past who presents with an abnormal stress test. Cardiac catheterization was recommended. PROCEDURE: Left heart catheterization with coronary arteriography and left ventriculogram. The right femoral artery was cannulated with 6-Frisian sheath. There were no complications. I performed moderate sedation, which included the presence of an independent trained observer that assisted in monitoring the patient's level of consciousness and physiologic status. After administration of Versed and fentanyl, my intra-service time was 15 minutes. The patient was given sublingual nitroglycerin x2 as well as intravenous hydralazine 10 mg x2 for blood pressure that was initially greater than 200 systolic. Findings on catheterization revealed a left ventricle that was preserved with an EF of approximately 60%. Her coronary anatomy revealed a chronically occluded RCA, which was a dominant vessel. Collaterals were seen filling the distal RCA from the left circulation. The left main artery was unremarkable. The LAD revealed diffuse intimal irregularities without critical lesions. There is a patent stent in the proximal portion of the LAD. The circumflex artery and obtuse marginal branches revealed intimal irregularities without critical lesions. There is a 90% stenoses in the septal tool grinder operator external at the takeoff of the stent. Left ventriculogram is performed in the CARDOSO projection. In the CARDOSO projection, wall motion was preserved with an EF of 60%. Angio-Seal was used to close the femoral artery site. The patient tolerated the procedure well. In summary, the procedure revealed single-vessel CAD with a chronically occluded RCA. There is a patent stent in the proximal LAD with a lesion in the septal tool grinder operator external, which was not manipulated. LV function is preserved. Given these findings, the patient's coronary anatomy is unchanged from her previous catheterization. We will continue her medical therapy and a continued cardiac risk reduction program. Reese Morgan MD
[2018-03-28 12:56] VITALS: O2SAT 98
--- NOTE | 2018-03-28 13:22 | CARD ---
APPROVED REPORT Date of service: 03/28/2018 EKG Measurement Heart [id number] 150P [id number] <Conclusion> Sinus bradycardia T wave abnormality, consider inferior ischemia Abnormal ECG
[2018-03-28 14:40] VITALS: PULSE 64
[2018-03-28 15:14] VITALS: BP 123/68
== END 2018-03-28 16:15 | disposition home or self-care (01) ==
LOC: CATH 06:38
PROVIDERS: ATTEND Internal Medicine Cardiovascular Disease
DX: I25.10 Atherosclerotic heart disease of native coronary artery without angina pectoris (principal); I25.82 Chronic total occlusion of coronary artery; Z95.1 Presence of aortocoronary bypass graft
CPT/HCPCS: 36415; 80048; 85025; 85610; 85730; 86850; 86900; 93005; 93458; 99152; 99153; C1760; C1769; C2629; J0360; J1644; J2250; J3010; J7030; Q9966

== ENCOUNTER 2018-05-08 11:56 | Inpatient (IN) | payer MEDICARE, MEDICAID ==
[2018-05-08] MEDS ORDERED: Sodium Chloride 0.9% 1,000 ML IV STA (12:25)
[2018-05-08] MEDS: Sodium Chloride 0.9% 1,000 ML IV SCH (12:30)
--- NOTE | 2018-05-08 12:35 | ED PDOC ---
Arrival/HPI - General Chief Complaint: Medical Clearance Time Seen by Provider: 05/08/18 12:08 Historian: Patient - History of Present Illness Narrative History of Present Illness (Text): 05/08/18 12:34 63 yo F w/ h/o of HTN, HLD, SLE, Scleroderma, Phan's Esophagus, CKD, CAD, Hypothyroidism, and NSTEMI s/p stent placements, presents to the Emergency department from Dr. Moreira's office for evaluation of hypotension and dizziness since today. Patient informs sudden onset of nausea and dizziness at Dr. Moreira's office this morning and was subsequently referred to the Emergency department for evaluation of possible DEANA, symptomatic orthostatic hypotension and GI fluid loss. She reports mild lower abdominal discomfort but denies any other somatic complaints. Patient denies any fevers, chills, headache, chest pain, shortness of breath, dyspnea on exertion, cough, vomiting, diarrhea, back pain, neck pain, or any other complaints. She admits to currently experiencing familial issues, placing her under constant emotional duress. She is experiencing difficulty with coping mechanisms leading her to stop her medications for past 2 months. Patient denies any suicidal or homicidal ideation at this time. PMD: Dr. Hayward Jigger Operator: Dr. Moreira GI: Dr. Rodriguez Neurologist: Dr. Kimble Screening Nurse: Dr. Catalan Time/Duration: 1-3 hours Symptom Onset: Gradual Symptom Course: Unchanged Activities at Onset: Light Context: Other (Referred by Dr. Moreira) Past Medical History - Provider Review Nursing Documentation Reviewed: Yes - Travel History Have you recently traveled outside [place] w/in the past 3 mons?: No - Infectious Disease Hx of Infectious Diseases: None - Tetanus Immunization Tetanus Immunization: Unknown - Cardiac Hx Cardiac Disorders: Yes Hx Hypertension: Yes Hx Pacemaker: No - Pulmonary Hx Respiratory Disorders: No - Neurological Hx Neurological Disorder: Yes (raynauds syndrome) Hx Transient Ischemic Attacks (TIA): Yes (2012) - HEENT Hx HEENT Disorder: Yes (eyeglasses) Hx Difficulty Chewing: Yes Hx Epistaxis: Yes (no longer) Other/Comment: pt has no mobility in esophagus was eating puree, now cuts her food up very small - Renal Hx Renal Disorder: Yes Other/Comment: renal insufficiency - Endocrine/Metabolic Hx Endocrine Disorders: Yes Hx Hypothyroidism: Yes Hx Systemic Lupus Erythematosus: Yes Other/Comment: [email or web address] - Hematological/Oncological Hx Blood Disorders: Yes Hx Blood Transfusions: Yes (03/2017) Hx Blood Transfusion Reaction: No - Musculoskeletal/Rheumatological Hx Musculoskeletal Disorders: Yes Hx Back Pain: Yes - Gastrointestinal Hx Gastrointestinal Disorders: Yes Hx Gall Bladder Disease: Yes Hx Gastroesophageal Reflux: Yes HX Swallowing Problems: Yes (patient states that she has difficulty swallowing) Other/Comment: hiatal hernia - Psychiatric Hx Psychophysiologic Disorder: Yes Hx Anxiety: Yes Hx Emotional Abuse: No Hx Physical Abuse: No Hx Substance Use: No - Past Surgical History Past Surgical History: No Previous - Surgical History Hx Cardiac Catheterization: Yes ("5 or 6 stents") - Anesthesia Hx Anesthesia Reactions: No Hx Malignant Hyperthermia: No - Suicidal Assessment Feels Threatened In Home Enviroment: No Family/Social History - Physician Review Nursing Documentation Reviewed: Yes Family/Social History: No Known Family HX Smoking Status: Never Smoked Hx Alcohol Use: No Hx Substance Use: No Hx Substance Use Treatment: No Allergies/Home Meds Allergies/Adverse Reactions: Allergies chicken derived Allergy (Severe, Verified 03/26/18 11:58) ANAPHYLAXIS Home Medications: Home Meds Medication Instructions Recorded Confirmed Levothyroxine [Synthroid] 0.137 mg PO QAM 03/15/17 03/28/18 Aspirin [Ecotrin] 81 mg PO QAM 05/17/17 05/08/18 Dexlansoprazole [Dexilant] 60 mg PO QAM 03/26/18 05/08/18 Review of Systems - Physician Review All systems were reviewed & negative as marked: Yes - Review of Systems Constitutional: absent: Fevers Respiratory: absent: SOB, Cough Cardiovascular: absent: Chest Pain Gastrointestinal: Nausea. absent: Abdominal Pain, Diarrhea, Vomiting Musculoskeletal: absent: Back Pain, Neck Pain Neurological: Dizziness. absent: Headache Physical Exam Vital Signs Reviewed: Yes Vital Signs Temp Resp BP Pulse Ox 05/08/18 12:08 98.3 F 69 H 104/69 98 Temperature: Afebrile Blood Pressure: Normal Pulse: Bradycardic Respiratory Rate: Normal Appearance: Positive for: Well-Appearing, Non-Toxic, Comfortable Pain Distress: None Mental Status: Positive for: Alert and Oriented X 3 - Systems Exam Head: Present: Atraumatic, Normocephalic Pupils: Present: PERRL Extroacular Muscles: Present: EOMI Conjunctiva: Present: Normal Mouth: Present: Moist Mucous Membranes Neck: Present: Normal Range of Motion Respiratory/Chest: Present: Decreased Breath Sounds (diminished breath sounds bilaterally). No: Respiratory Distress, Accessory Muscle Use, Wheezes, Rales, Rhonchi Cardiovascular: Present: Regular Rate and Rhythm, Normal S1, S2, Bradycardic. No: Murmurs Abdomen: No: Tenderness, Distention, Peritoneal Signs Back: Present: Normal Inspection Upper Extremity: Present: Normal Inspection, NORMAL PULSES. No: Cyanosis, Edema Lower Extremity: Present: Normal Inspection, NORMAL PULSES (Distal pulses equal and symmetric). No: Edema Neurological: Present: GCS=15, CN II-XII Intact, Speech Normal Skin: Present: Warm, Dry, Normal Color. No: Rashes Psychiatric: Present: Alert, Oriented x 3, Normal Insight, Normal Concentration Medical Decision Making ED Course and Treatment: 05/08/18 13:10 Impression: 63 year old female presents to the Emergency department complaining of nausea and dizziness. Differential Diagnosis included but are not limited to: DEANA Orthostatic hypotension Plan: -- Labs --Orthostatic VS -- CXR -- UA -- Zofran -- IV Fluids -- Reassess and disposition Prior Visits: Notes and results from previous visits were reviewed. Progress Notes: 05/08/18 13:27 Labs reviewed with creatinine noted to be 1.6. Discussed case with Dr. Bhavin Catalan(hospitalist) who accepts the patient onto her service. - Lab Interpretations Lab Results: Lab Results 05/08/18 12:26: POC Glucose (mg/dL) 120 H - RAD Interpretation Narrative RAD Interpretations (Text): 05/08/18 13:40 Chest X-ray reviewed by radiologist, shows: FINDINGS: LUNGS: No active pulmonary disease. PLEURA: No significant pleural effusion identified, no pneumothorax apparent. CARDIOVASCULAR: No radiographic findings to suggest acute or significant cardiovascular disease. OSSEOUS STRUCTURES: No significant abnormalities. VISUALIZED UPPER ABDOMEN: Normal. OTHER FINDINGS: None. IMPRESSION: No active disease. No significant interval change compared to the prior examination(s). Radiology Orders: 05/08/18 12:25 CHEST PORTABLE [RAD] Stat Nuclear Medical Technologist: Radiologist - Medication Orders Current Medication Orders: Sodium Chloride (Sodium Chloride 0.9%) 1,000 mls @ 999 mls/hr IV .Q1H1M STA Stop: 05/08/18 13:25 Discontinued Medications Ondansetron HCl (Zofran Inj) 4 mg IVP STAT STA Stop: 05/08/18 12:26 - Scribe Statement The provider has reviewed the documentation as recorded by the Maria Aibcarmelo Baugh. All medical record entries made by the Maria Aibcarmelo were at my direction and personally dictated by me. I have reviewed the chart and agree that the record accurately reflects my personal performance of the history, physical exam, medical decision making, and the department course for this patient. I have also personally directed, reviewed, and agree with the discharge instructions and di sposition. Disposition/Present on Arrival - Present on Arrival Any Indicators Present on Arrival: No History of DVT/PE: No History of Uncontrolled Diabetes: No Urinary Catheter: No History of Decub. Ulcer: No History Surgical Site Infection Following: None - Disposition Have Diagnosis and Disposition been Completed?: Yes Diagnosis: DEANA (acute kidney injury) Disposition: HOSPITALIZED Disposition Time: 13:27 Patient Plan: Observation Patient Problems: Current Active Problems Problem Status Onset DEANA (acute kidney injury) Acute Condition: STABLE
[2018-05-08 12:45] LABS: BASO # 0.01 K/mm3 (0.0-2.0); BASO % 0.2 % (0.0-3.0); EOS # 0.1 (0.0-0.7); EOS % 1.7 % (1.5-5.0); GRAN # 3.21 (1.4-6.5); LYMPH # 1.5 (1.2-3.4); LYMPH % 28.6 % (22.0-35.0); MEAN CELL VOLUME 91.4 fl (80.0-105.0); MEAN CORPUSCULAR HEMOGLOBIN 30.7 pg (25.0-35.0); MEAN CORPUSCULAR HGB CONC 33.6 g/dl (31.0-37.0); MEAN PLATELET VOLUME 10.9 fl (7.0-11.0); MONO # 0.4 (0.1-0.6); MONO % 7.5 % (1.0-6.0); RBC 4.56 10^6/uL (3.5-6.1); RED CELL DISTRIBUTION WIDTH 13.7 % (11.5-14.5); WHITE BLOOD COUNT 5.2 10^3/ul (4.5-11.0)
[2018-05-08 12:54] LABS: INR 0.97; PARTIAL THROMBOPLASTIN TIME 29.7 Seconds (25.1-36.5); PROTHROMBIN TIME 11.2 SECONDS (9.4-12.5)
[2018-05-08 12:57] LABS: ALB/GLOB RATIO 1.5 (1.1-1.8); ALBUMIN 4.6 g/dL (3.0-4.8); ALT/SGPT 18 U/L (7-56); AST/SGOT 21 U/L (14-36); BLOOD UREA NITROGEN 28 mg/dL (7-21); CALCIUM 9.7 mg/dL (8.4-10.5); GFR NON-AFRICAN AMERICAN 33
[2018-05-08 13:08] LABS: TROPONIN I < 0.01 ng/mL
--- NOTE | 2018-05-08 13:29 | RAD ---
Date of service: 05/08/2018 HISTORY: dizziness COMPARISON: 04/03/2017 FINDINGS: LUNGS: No active pulmonary disease. PLEURA: No significant pleural effusion identified, no pneumothorax apparent. CARDIOVASCULAR: No radiographic findings to suggest acute or significant cardiovascular disease. OSSEOUS STRUCTURES: No significant abnormalities. VISUALIZED UPPER ABDOMEN: Normal. OTHER FINDINGS: None. IMPRESSION: No active disease. No significant interval change compared to the prior examination(s).
--- NOTE | 2018-05-08 15:19 | CP.PCM.HP ---
Addendum entered and electronically signed by Duncan Dickson DO 05/08/18 16:55: Patient on 125mcg instead of 137 due to pharmacy limitations Original Note: <Duncan Dickson - Last Filed: 05/08/18 16:44> History of Present Illness - History of Present Illness History of Present Illness: PGY-1 Duncan Dickson H & P for Dr. Proctor's service Patient is a 63 yo female with PMH of HTN, HLD, SLE, Scleroderma, Phan's, CKD, CAD, Hypothyroidism, NSTEMI with stents presents to the hospital for evaluation of dizziness and lightheadedness. Patient states that 2 months ago she noted her blood pressure to be very low in the 40s/20s. Patient started to take off blood pressure medications without advice of her doctors to improve her blood pressure because she was feeling dizzy. Patient continued to remove all of her blood pressures and noted when she measured that her blood pressure was 100/65 without any blood pressure medications. Patient went to speak with PMD, Dr. Hayward, who referred her to Dr. Moreira. Patient states she had similar symptoms a year ago and went through an extensive GI workup with no formal diagnosis. Of note she had anemia during the last workup which required GI involvement. Patient was nauseous last week with episodes of vomiting however no complaints of nausea this week. Patient states she has increased stress at home due to her daughter/ moving into the house with their children. Patient admits to dizziness, lightheadedness, and weight loss (does nto know how much). Patient denies fevers, chills, sob, chest pain, diarrhea or constipation, nausea/vomiting, weakness, vision changes. PMH- HTN, HLD, SLE, Scleroderma, Phan's, CKD, CAD, Hypothyroidism, NSTEMI with stents PSH- Colonoscopy, Endoscopy, cardiac cath, Cholecystectomy, 2 C-sections FH- Father ([place] + stroke); Mom (DM) Meds- Asa 81, Dexilant 60, Synthroid 0.137 Allergies- Chicken Social- Denies alcohol, tobacco, drug use Code- Full Code PMD- Dr. Hayward Present on Admission - Present on Admission Any Indicators Present on Admission: No Review of Systems - Review of Systems Review of Systems: 12 point ROS obtained and noted in HPI Past Patient History - Infectious Disease Hx of Infectious Diseases: None - Tetanus Immunizations Tetanus Immunization: Unknown - Past Medical History & Family History Past Medical History?: Yes - Past Social History Smoking Status: Never Smoked - CARDIAC Hx Cardiac Disorders: Yes Hx Hypertension: Yes Hx Pacemaker: No - PULMONARY Hx Respiratory Disorders: No - NEUROLOGICAL Hx Neurological Disorder: Yes (raynauds syndrome) Hx Transient Ischemic Attacks (TIA): Yes (2012) - HEENT Hx HEENT Problems: Yes (eyeglasses) Hx Difficulty Chewing: Yes Hx Epistaxis: Yes (no longer) Other/Comment: pt has no mobility in esophagus was eating puree, now cuts her food up very small - RENAL Hx Chronic Kidney Disease: Yes Other/Comment: renal insufficiency - ENDOCRINE/METABOLIC Hx Endocrine Disorders: Yes Hx Hypothyroidism: Yes Hx Systemic Lupus Erythematosus: Yes Other/Comment: sclermaderma - HEMATOLOGICAL/ONCOLOGICAL Hx Blood Disorders: Yes Hx Blood Transfusions: Yes (03/2017) Hx Blood Transfusion Reaction: No - MUSCULOSKELETAL/RHEUMATOLOGICAL Hx Musculoskeletal Disorders: Yes Hx Back Pain: Yes - GASTROINTESTINAL Hx Gastrointestinal Disorders: Yes Hx Gall Bladder Disease: Yes Hx Gastroesophageal Reflux: Yes HX Swallowing Problems: Yes (patient states that she has difficulty swallowing) Other/Comment: hiatal hernia - PSYCHIATRIC Hx Psychophysiologic Disorder: Yes Hx Anxiety: Yes Hx Emotional Abuse: No Hx Physical Abuse: No Hx Substance Use: No - SURGICAL HISTORY Hx Cardiac Catheterization: Yes ("5 or 6 stents") - ANESTHESIA Hx Anesthesia Reactions: No Hx Malignant Hyperthermia: No Meds Allergies/Adverse Reactions: Allergies Allergy/AdvReac Type Severity Reaction Status Date / Time chicken derived Allergy Severe ANAPHYLAXIS Verified 03/26/18 11:58 Physical Exam - Constitutional Appears: Non-toxic, No Acute Distress - Head Exam Head Exam: NORMAL INSPECTION, NORMOCEPHALIC - Eye Exam Eye Exam: EOMI, Normal appearance. absent: Nystagmus, Scleral icterus - ENT Exam ENT Exam: Mucous Membranes Moist - Neck Exam Neck exam: Positive for: Normal Inspection - Respiratory Exam Respiratory Exam: Clear to Auscultation Bilateral, NORMAL BREATHING PATTERN. absent: Rales, Rhonchi, Wheezes - Cardiovascular Exam Cardiovascular Exam: REGULAR RHYTHM, +S1, +S2 - GI/Abdominal Exam GI & Abdominal Exam: Normal Bowel Sounds, Soft. absent: Tenderness - Extremities Exam Extremities exam: Positive for: normal inspection. Negative for: calf tenderness, pedal edema - Neurological Exam Neurological exam: Alert, Oriented x3 - Psychiatric Exam Psychiatric exam: Normal Affect, Normal Mood - Skin Skin Exam: Intact, Normal Color Results - Vital Signs Recent Vital Signs: Last Vital Signs Temp 98.0 F 05/08/18 14:38 Pulse 60 05/08/18 14:38 Resp 19 05/08/18 14:38 BP 110/67 05/08/18 12:35 Pulse Ox 97 05/08/18 14:38 - Labs Result Diagrams: 05/08/18 12:38 05/08/18 16:00 Labs: Laboratory Results - last 24 hr 05/08/18 05/08/18 05/08/18 12:26 12:38 12:38 WBC 5.2 D RBC 4.56 Hgb 14.0 Hct 41.7 MCV 91.4 MCH 30.7 MCHC 33.6 RDW 13.7 Plt Count 178 MPV 10.9 Gran % 62.0 Lymph % (Auto) 28.6 [place] % (Auto) 7.5 H Eos % (Auto) 1.7 Baso % (Auto) 0.2 Gran # 3.21 Lymph # (Auto) 1.5 [place] # (Auto) 0.4 Eos # (Auto) 0.1 Baso # (Auto) 0.01 ESR 15 PT INR APTT Sodium 143 Potassium 4.6 Chloride 106 Carbon Dioxide 25 Anion Gap 17 BUN 28 H Creatinine 1.6 H Est GFR ( Amer) 40 Est GFR (Non-Af Amer) 33 POC Glucose (mg/dL) 120 H Random Glucose 88 Serum Osmolality Calcium 9.7 Magnesium 1.9 Total Bilirubin 0.4 AST 21 ALT 18 Alkaline Phosphatase 57 Troponin I < 0.01 Total Protein 7.7 Albumin 4.6 Globulin 3.1 Albumin/Globulin Ratio 1.5 05/08/18 05/08/18 12:38 13:00 WBC RBC Hgb Hct MCV MCH MCHC RDW Plt Count MPV Gran % Lymph % (Auto) [place] % (Auto) Eos % (Auto) Baso % (Auto) Gran # Lymph # (Auto) [place] # (Auto) Eos # (Auto) Baso # (Auto) ESR PT 11.2 INR 0.97 APTT 29.7 Sodium Potassium Chloride Carbon Dioxide Anion Gap BUN Creatinine Est GFR ( Amer) Est GFR (Non-Af Amer) POC Glucose (mg/dL) Random Glucose Serum Osmolality 297 Calcium Magnesium Total Bilirubin AST ALT Alkaline Phosphatase Troponin I Total Protein Albumin Globulin Albumin/Globulin Ratio Assessment & Plan - Assessment and Plan (Free Text) Assessment: Patient is a 63 yo female with PMH of HTN, HLD, SLE, Scleroderma, Phan's, CKD, CAD, Hypothyroidism, NSTEMI with stents presents to the hospital for evaluation of dizziness and lightheadedness. Plan: Dizziness Likely due to low blood pressure Patient currently on no blood pressure meds Orthostatics pending NS @ 100 ml DEANA on CKD stage III Nephro Consulted- Dr. Moreira- recs appreciated NS @ 100 mls/hr Repeat CMP in AM Uosm, Alyssia pending U/A pending Hypothyroidism Synthroid 0.137 mcg TSH pending SLE No active flare Patient currently not taking meds for condition Scleroderma Patient currently on no active meds Hx of Phan's Esophagus Protonix 40mg po Hx of CAD Lipid panel pending PPX DVT: scds GI: protonix 40mg <Jaycob Proctor - Last Filed: 05/08/18 18:20> Results - Vital Signs Recent Vital Signs: Last Vital Signs Temp 97.6 F 05/08/18 17:44 Pulse 60 05/08/18 17:44 Resp 19 05/08/18 17:44 BP 143/72 05/08/18 17:44 Pulse Ox 98 05/08/18 17:08 - Labs Result Diagrams: 05/08/18 12:38 05/08/18 16:00 Labs: Laboratory Results - last 24 hr 05/08/18 05/08/18 05/08/18 12:26 12:38 12:38 WBC 5.2 D RBC 4.56 Hgb 14.0 Hct 41.7 MCV 91.4 MCH 30.7 MCHC 33.6 RDW 13.7 Plt Count 178 MPV 10.9 Gran % 62.0 Lymph % (Auto) 28.6 [place] % (Auto) 7.5 H Eos % (Auto) 1.7 Baso % (Auto) 0.2 Gran # 3.21 Lymph # (Auto) 1.5 [place] # (Auto) 0.4 Eos # (Auto) 0.1 Baso # (Auto) 0.01 ESR 15 PT INR APTT Sodium 143 Potassium 4.6 Chloride 106 Carbon Dioxide 25 Anion Gap 17 BUN 28 H Creatinine 1.6 H Est GFR ( Amer) 40 Est GFR (Non-Af Amer) 33 POC Glucose (mg/dL) 120 H Random Glucose 88 Serum Osmolality Calcium 9.7 Magnesium 1.9 Total Bilirubin 0.4 AST 21 ALT 18 Alkaline Phosphatase 57 Troponin I < 0.01 Total Protein 7.7 Albumin 4.6 Globulin 3.1 Albumin/Globulin Ratio 1.5 Triglycerides Cholesterol LDL Cholesterol Direct HDL Cholesterol 05/08/18 05/08/18 05/08/18 12:38 13:00 16:00 WBC RBC Hgb Hct MCV MCH MCHC RDW Plt Count MPV Gran % Lymph % (Auto) [place] % (Auto) Eos % (Auto) Baso % (Auto) Gran # Lymph # (Auto) [place] # (Auto) Eos # (Auto) Baso # (Auto) ESR PT 11.2 INR 0.97 APTT 29.7 Sodium Potassium Chloride Carbon Dioxide Anion Gap BUN Creatinine 1.5 H Est GFR ( Amer) Cancelled Est GFR (Non-Af Amer) Cancelled POC Glucose (mg/dL) Random Glucose Serum Osmolality 297 Calcium Magnesium Total Bilirubin AST ALT Alkaline Phosphatase Troponin I Total Protein Albumin Globulin Albumin/Globulin Ratio Triglycerides 115 Cholesterol 178 LDL Cholesterol Direct 91 HDL Cholesterol 38 Attending/Attestation - Attestation I have personally seen and examined this patient.: Yes I have fully participated in the care of the patient.: Yes I have reviewed all pertinent clinical information: Yes Notes (Text): 05/08/18 18:18 63 year old female with past medical history of hypertension, CAD, hypothyroidim and CAD s/p stents who presented with complaint of dizziness. Referred by nephrology for orthostatic hypotension and DEANA. Creatinine is 1.6. Will start on iv fluids. Obtain orthostatic vitals. Repeat labs in AM. Nephrology evaluation is requested. BP medications are held. Jaycob Proctor MD Hospitalist.
[2018-05-08 16:13] LABS: HDL CHOLESTEROL 38 mg/dL (29-60)
[2018-05-08 16:24] LABS: LDL CHOLESTEROL 91 mg/dL (0-129)
[2018-05-08 18:02] VITALS: BMI 24.9
[2018-05-08] MEDS ORDERED: Influenza Vaccine 60 mcg/0.5 mL SYR (4YR UP) IM ONE (18:02)
[2018-05-08] MEDS ORDERED: Pneumococcal 23-Valent Vaccine IM ONE (18:02)
[2018-05-08] MEDS: Pantoprazole 40 mg EC Tab PO SCH (19:06)
[2018-05-08 19:58] LABS: URINE BILIRUBIN NEGATIVE (NEGATIVE); URINE BLOOD NEGATIVE (NEGATIVE); URINE GLUCOSE (UA) NEGATIVE (NEGATIVE); URINE LEUKOCYTE ESTERASE NEGATIVE Leu/uL (NEGATIVE); URINE PROTEIN NEGATIVE mg/dL (<30 mg/dL); URINE UROBILINOGEN 0.2 E.U./dL (<1 E.U./dL)
[2018-05-08 20:04] LABS: URINE APPEARANCE CLEAR (CLEAR); URINE COLOR YELLOW (YELLOW)
[2018-05-08 20:38] LABS: CREATININE,RANDOM URINE 84 mg/dL
[2018-05-08 21:36] LABS: OSMOLALITY,URINE 505 mosm/kg (300-1000)
[2018-05-09] MEDS ORDERED: Levothyroxine 125 MCG TAB PO SCH (06:00)
[2018-05-09] MEDS ORDERED: Levothyroxine 25 MCG TAB PO ONE (06:00)
[2018-05-09 07:29] LABS: ALB/GLOB RATIO 1.2 (1.1-1.8); ALBUMIN 3.3 g/dL (3.0-4.8); CALCIUM 8.3 mg/dL (8.4-10.5)
[2018-05-09 08:21] LABS: FREE T4 1.01 ng/dL (0.78-2.19)
[2018-05-09 08:33] LABS: BASO # 0.02 K/mm3 (0.0-2.0); BASO % 0.6 % (0.0-3.0); EOS # 0.1 (0.0-0.7); EOS % 1.7 % (1.5-5.0); GRAN # 2.01 (1.4-6.5); GRAN % 58.3 % (50.0-68.0); HEMOGLOBIN 11.9 g/dL (12.0-16.0); LYMPH # 1.1 (1.2-3.4); LYMPH % 31.9 % (22.0-35.0); MEAN CELL VOLUME 92.9 fl (80.0-105.0); MEAN CORPUSCULAR HEMOGLOBIN 30.2 pg (25.0-35.0); MEAN CORPUSCULAR HGB CONC 32.5 g/dl (31.0-37.0); MEAN PLATELET VOLUME 10.9 fl (7.0-11.0); MONO # 0.3 (0.1-0.6); MONO % 7.5 % (1.0-6.0); RBC 3.94 10^6/uL (3.5-6.1); RED CELL DISTRIBUTION WIDTH 13.7 % (11.5-14.5); WHITE BLOOD COUNT 3.5 10^3/ul (4.5-11.0)
--- NOTE | 2018-05-09 09:09 | CARD ---
APPROVED REPORT Date of service: 05/08/2018 EKG Measurement Heart [id number] 156P-11 [id number] <Conclusion> Sinus bradycardia Q in lll No change
[2018-05-09] MEDS: Pantoprazole 40 mg EC Tab PO SCH (10:51)
--- NOTE | 2018-05-09 15:06 | CARD ---
APPROVED REPORT Date of service: 05/09/2018 EKG Measurement Heart [id number] 160P-12 [id number] <Conclusion> Marked sinus bradycardia with sinus arrhythmia Q in lll Peaked T waves V 3 - 6
--- NOTE | 2018-05-09 15:44 | CP.PCM.CON ---
History of Present Illness - History of Present Illness History of Present Illness: Nephrology Consultation Note: Assessment: Stable Acute kidney injury likely pre-renal and low BP related orthostatic hypotension ? due to intravascular depletion due to GI fluid loss . pt also bradycardic. can have autonomic dysfunction due to scleroderma as well SLE , scleroderma (anti-centromere Ab+), CAD, chronic dysphagia, greene esophagus, hypertension x 20 years and biopsy proven IgA nephropathy in 2013 CKD stage 3 with baseline cr 1.1-1.4 mg/dL,Anemia, MGUS Hypothyroidism, hyperlipidemia Plan No acute need for renal replacement therapy at this time. Maintain hemodynamics stable. Avoid hypotension. Patient not on ACEI/ARB due to recent DEANA and low BP Monitor Input/Output, daily weights and renal function with basic metabolic panel continue with IVF as NS monitor orthostatic BP. if continue to have it depsite adequate fluid resus, consider midodrine 10 mg/day cardiology eval for bradycardia fall precautions check renin/juani in AM Dose meds/antibiotics for reduced GFR. Avoid fleets enema/magnesium based laxatives. Avoid nephrotoxins/NSAIDs/ iodinated contrast (unless needed emergently) Glycemic control Further work up/management as per primary team Thanks for allowing me to participate in care of your patient. Will follow patient with you. Please call if any Qs. had d/w team Dr Tyler Moreira Office: [phone] CC: dizziness HPI: Pt is a 63 y/o F with reported hx of SLE , scleroderma (anti-centromere Ab+), CAD, chronic dysphagia, greene esophagus, hypertension x 20 years and biopsy proven IgA nephropathy in 2013 and CKD stage 3 with baseline cr 1.1-1.4 mg/dL, also Anemia, MGUS (f/up by heme), hypothyroidism admitted to hospital with symptomatic orthostatic hypotension nausea/vomiting and DEANA hence renal consulted. also episodes of bradycardia in hospital, HR 30-50 range pt feels same. no diarrhoea/nausea/vomiting. denies Wt loss. no fever/chills. reports family stress, says had a nervous breakdown. feels depressed due to family stress/situation. hasn't been taking most meds for last 1 month. Denies chest pain, palpitation, shortness of breath, leg swelling. no urinary complaints ROS; Cardiovascular: No chest pain. Pulmonary: No shortness of breath Gastrointestinal: denies abdominal pain better nausea. better vomiting. Genitourinary: No pain while urinating. Denies blood in urine. Rest all other negative except as mentioned in HPI Exam; General Appearance: Comfortable, in no acute respiratory distress, co- operative . Vitals reviewed and noted. Head; Atraumatic, normocephalic ENT: no ulcers no thrush. Tongue is midline. Oropharynx: no rash or ulcers. EYES: Pupils are equal, round and reactive to light accommodation. Eye muscles and extraocular movement intact. Sclera is anicteric. Neck; supple no lymphadenopathy, no thyromegaly or bruit Lungs: Normal respiratory rate/effort. Breath sounds bilateral equal and clear Heart: Normal rate. s1s2 normal. No rub or gallop. Extremities: no edema. No varicose veins Neurological: Patient is alert, awake and oriented to person, place and time. No focal deficit. Strength bilateral appropriate and equal Skin: Warm and dry. Normal turgor. No rash. Palpitation: Normal elasticity for age Abdomen: Abdomen is soft. Bowel sounds +. There is no abdominal tenderness, no guarding/rigidity or organomegaly Psych: normal insight and normal affect/mood MSK: no joint tenderness or swelling. Digits and nails normal, no deformity : kidney or bladder not palpable Work up: kidney BX 2013: IgA nephropathy [id number] Imaging: unremarkable for kidneys renin/juani and metanephrines level WNL, no FREDDY on doppler [place]/lambda 2.65 but SPEP neg 04/23/18: Hb 14.2 tsat 24% Ferritin 53 SPEP negative Na 140 K 4.3 Bicarb 24 BUN/cr 17/0.85 Ca 9.2 05/02/18: 05/02/18: Na 137 K 4.7 Bicarb 26 BUN/cr 33/1.9 Ca 9.2 TSH 10 Vit D 25 PTH 244 Phos 3.7 ESR 7, cortisol 15 c3/c4 normal PAT + witn anti-centromere ab+ and DNA ab neg urine pro/blood neg, pr/cr and alb/cr neg Past Patient History - Infectious Disease Hx of Infectious Diseases: None - Tetanus Immunizations Tetanus Immunization: Unknown - Past Medical History & Family History Past Medical History?: Yes - Past Social History Smoking Status: Never Smoked - CARDIAC Hx Cardiac Disorders: Yes (CAD, NSTEMI, S/P 6 stent placements.) Hx Hypercholesterolemia: Yes (Hyperlipidemia) Hx Hypertension: Yes - PULMONARY Hx Respiratory Disorders: No - NEUROLOGICAL Hx Neurological Disorder: Yes (raynauds syndrome) Hx Transient Ischemic Attacks (TIA): Yes (2012 no residual) - HEENT Hx HEENT Problems: Yes (eyeglasses) Hx Difficulty Chewing: Yes Hx Epistaxis: Yes (no longer) Other/Comment: pt has no mobility in esophagus was eating puree, now cuts her food up very small - RENAL Hx Chronic Kidney Disease: Yes Other/Comment: renal insufficiency - ENDOCRINE/METABOLIC Hx Hypothyroidism: Yes - HEMATOLOGICAL/ONCOLOGICAL Hx Blood Disorders: Yes Hx Anemia: Yes (blood transfusion 03/2017) - INTEGUMENTARY Hx Dermatological Problems: Yes Other/Comment: multiple small light skin pigmentation spots to both arms ad small red dots on hands - MUSCULOSKELETAL/RHEUMATOLOGICAL Hx Falls: Yes (2016) - GASTROINTESTINAL Hx Gastrointestinal Disorders: Yes Hx Gall Bladder Disease: Yes Hx Gastroesophageal Reflux: Yes HX Swallowing Problems: Yes (patient states that she has difficulty swallowing) Hx Ulcer: Yes Other/Comment: hiatal hernia, food allergy to chicken throat closes, barretts esophagus - PSYCHIATRIC Hx Substance Use: No - SURGICAL HISTORY Hx Surgeries: Yes (c section x2, cardiac cath and stents) Hx Cardiac Catheterization: Yes ("5 or 6 stents") Hx Cholecystectomy: Yes Other/Comment: cervical fusion sx 4 discswith plates and screws, colonoscopies and endoscopies - ANESTHESIA Hx Anesthesia Reactions: No Hx Malignant Hyperthermia: No Meds Allergies/Adverse Reactions: Allergies Allergy/AdvReac Type Severity Reaction Status Date / Time chicken derived Allergy Severe ANAPHYLAXIS Verified 03/26/18 11:58 - Medications Medications: Current Medications Aspirin (Aspirin Chewable) 81 mg PO DAILY PENDING SALE TO [facility] Last Admin: 05/09/18 10:51 Dose: 81 mg Sodium Chloride (Sodium Chloride 0.9%) 1,000 mls @ 100 mls/hr IV .Q10H PENDING SALE TO [facility] Last Admin: 05/08/18 12:30 Dose: 100 mls/hr Levothyroxine Sodium (Synthroid) 150 mcg PO 0600 PENDING SALE TO [facility] Pantoprazole Sodium (Protonix Ec Tab) 40 mg PO DAILY PENDING SALE TO [facility] Last Admin: 05/09/18 10:51 Dose: 40 mg Results - Vital Signs Recent Vital Signs: Last Vital Signs Temp 98.0 F 05/09/18 06:00 Pulse 55 L 05/09/18 06:00 Resp 19 05/09/18 06:00 BP 125/65 05/09/18 06:00 Pulse Ox 96 05/09/18 06:00 - Labs Result Diagrams: 05/09/18 08:15 05/09/18 06:30 Labs: Laboratory Results - last 24 hr 05/08/18 05/08/18 05/08/18 16:00 19:25 19:25 WBC RBC Hgb Hct MCV MCH MCHC RDW Plt Count MPV Gran % Lymph % (Auto) [place] % (Auto) Eos % (Auto) Baso % (Auto) Gran # Lymph # (Auto) [place] # (Auto) Eos # (Auto) Baso # (Auto) Sodium Potassium Chloride Carbon Dioxide Anion Gap BUN Creatinine 1.5 H Est GFR ( Amer) Cancelled Est GFR (Non-Af Amer) Cancelled Random Glucose Calcium Phosphorus Magnesium Total Bilirubin AST ALT Alkaline Phosphatase Troponin I Total Protein Albumin Globulin Albumin/Globulin Ratio Triglycerides 115 Cholesterol 178 LDL Cholesterol Direct 91 HDL Cholesterol 38 Free T4 TSH 3rd Generation Urine Color Yellow Urine Appearance Clear Urine pH 6.0 Ur Specific [place] 1.015 Urine Protein Negative Urine Glucose (UA) Negative Urine Ketones Negative Urine Blood Negative Urine Nitrate Negative Urine Bilirubin Negative Urine Urobilinogen 0.2 Ur Leukocyte Esterase Negative Urine Osmolality 505 Ur Random Creatinine 84 Ur Random Sodium 98 05/08/18 05/09/18 05/09/18 20:00 06:30 07:30 WBC RBC Hgb Hct MCV MCH MCHC RDW Plt Count MPV Gran % Lymph % (Auto) [place] % (Auto) Eos % (Auto) Baso % (Auto) Gran # Lymph # (Auto) [place] # (Auto) Eos # (Auto) Baso # (Auto) Sodium 142 Potassium 4.3 Chloride 112 H Carbon Dioxide 24 Anion Gap 11 BUN 21 Creatinine 1.3 H Est GFR ( Amer) 50 Est GFR (Non-Af Amer) 42 Random Glucose 99 Calcium 8.3 L Phosphorus 2.9 Magnesium 1.7 Total Bilirubin 0.2 AST 18 ALT 17 Alkaline Phosphatase 45 Troponin I Total Protein 6.1 Albumin 3.3 Globulin 2.8 Albumin/Globulin Ratio 1.2 Triglycerides Cholesterol LDL Cholesterol Direct HDL Cholesterol Free T4 1.01 TSH 3rd Generation 9.07 H 12.00 H Urine Color Urine Appearance Urine pH Ur Specific [place] Urine Protein Urine Glucose (UA) Urine Ketones Urine Blood Urine Nitrate Urine Bilirubin Urine Urobilinogen Ur Leukocyte Esterase Urine Osmolality Ur Random Creatinine Ur Random Sodium 05/09/18 05/09/18 08:15 10:00 WBC 3.5 L D RBC 3.94 Hgb 11.9 L D Hct 36.6 MCV 92.9 MCH 30.2 MCHC 32.5 RDW 13.7 Plt Count 144 MPV 10.9 Gran % 58.3 Lymph % (Auto) 31.9 [place] % (Auto) 7.5 H Eos % (Auto) 1.7 Baso % (Auto) 0.6 Gran # 2.01 Lymph # (Auto) 1.1 L [place] # (Auto) 0.3 Eos # (Auto) 0.1 Baso # (Auto) 0.02 Sodium Potassium Chloride Carbon Dioxide Anion Gap BUN Creatinine Est GFR ( Amer) Est GFR (Non-Af Amer) Random Glucose Calcium Phosphorus Magnesium Total Bilirubin AST ALT Alkaline Phosphatase Troponin I < 0.01 Total Protein Albumin Globulin Albumin/Globulin Ratio Triglycerides Cholesterol LDL Cholesterol Direct HDL Cholesterol Free T4 TSH 3rd Generation Urine Color Urine Appearance Urine pH Ur Specific [place] Urine Protein Urine Glucose (UA) Urine Ketones Urine Blood Urine Nitrate Urine Bilirubin Urine Urobilinogen Ur Leukocyte Esterase Urine Osmolality Ur Random Creatinine Ur Random Sodium
--- NOTE | 2018-05-09 18:29 | CP.PCM.PN ---
<Duncan Dickson - Last Filed: 05/09/18 18:54> Subjective - Date & Time of Evaluation Date of Evaluation: 05/09/18 Time of Evaluation: 10:45 - Subjective Subjective: PGY-1 Duncan Dickson Medicine Progress Note for Dr. Proctor's service Patient seen and examined at bedside. Patient states she felt dizzy when making quick turns with PT. Patient denies chest pain, sob, n/v, constipation or diarrhea, dysuria. Objective - Vital Signs/Intake and Output Vital Signs (last 24 hours): Temp Pulse Resp BP Pulse Ox 97.4 F L 41 L 18 146/63 96 05/09/18 18:00 05/09/18 18:00 05/09/18 18:00 05/09/18 18:00 05/09/18 06:00 Intake and Output: 05/09/18 05/09/18 06:59 18:59 Intake Total 240 Output Total 100 Balance 140 - Medications Medications: Current Medications Aspirin (Aspirin Chewable) 81 mg PO DAILY [facility] Last Admin: 05/09/18 10:51 Dose: 81 mg Sodium Chloride (Sodium Chloride 0.9%) 1,000 mls @ 100 mls/hr IV .Q10H [facility] Last Admin: 05/08/18 12:30 Dose: 100 mls/hr Levothyroxine Sodium (Synthroid) 150 mcg PO 0600 [facility] Pantoprazole Sodium (Protonix Ec Tab) 40 mg PO DAILY [facility] Last Admin: 05/09/18 10:51 Dose: 40 mg - Labs Labs: 05/09/18 08:15 05/09/18 06:30 PT 11.2 SECONDS (9.4-12.5) 05/08/18 12:38 INR 0.97 05/08/18 12:38 APTT 29.7 Seconds (25.1-36.5) 05/08/18 12:38 - Constitutional Appears: Non-toxic, No Acute Distress - Head Exam Head Exam: NORMAL INSPECTION, NORMOCEPHALIC - Eye Exam Eye Exam: EOMI, Normal appearance. absent: Nystagmus, Scleral icterus - ENT Exam ENT Exam: Mucous Membranes Moist - Respiratory Exam Respiratory Exam: Clear to Ausculation Bilateral, NORMAL BREATHING PATTERN. absent: Rales, Rhonchi, Wheezes - Cardiovascular Exam Cardiovascular Exam: Bradycardia, REGULAR RHYTHM, +S1, +S2 - GI/Abdominal Exam GI & Abdominal Exam: Soft, Normal Bowel Sounds. absent: Tenderness - Extremities Exam Extremities Exam: Normal Inspection. absent: Calf Tenderness, Pedal Edema - Back Exam Back Exam: NORMAL INSPECTION - Neurological Exam Neurological Exam: Alert, Awake - Psychiatric Exam Psychiatric exam: Normal Affect, Normal Mood - Skin Skin Exam: Intact, Normal Color Assessment and Plan - Assessment and Plan (Free Text) Assessment: Patient is a 63 yo female with PMH of HTN, HLD, SLE, Scleroderma, Phan's, CKD, CAD, Hypothyroidism, NSTEMI with stents presents to the hospital for evaluation of dizziness and lightheadedness. Plan: Dizziness Cardio Consult: Dr. Morgan - era appreciated Likely due to low blood pressure and low heart rate Patient currently on no blood pressure meds Orthostatics negative NS @ 100 ml DEANA on CKD stage III Nephro Consulted- Dr. Moreira- lore appreciated NS @ 100 mls/hr Repeat CMP in AM likely prerenal in etiology U/A benign; Cr trending down Hypothyroidism Synthroid 150mcg TSH within normal limits SLE No active flare Patient currently not taking meds for condition Scleroderma Patient currently on no active meds Hx of Phan's Esophagus Protonix 40mg po Hx of CAD Lipid panel shows no indication to start medications Crying outbursts Psych consult- Dr. Reyes PPX DVT: scds GI: protonix 40mg <Jaycob Proctor - Last Filed: 05/09/18 19:10> Objective - Vital Signs/Intake and Output Vital Signs (last 24 hours): Temp Pulse Resp BP Pulse Ox 97.4 F L 41 L 18 146/63 96 05/09/18 18:00 05/09/18 18:00 05/09/18 18:00 05/09/18 18:00 05/09/18 06:00 - Medications Medications: Current Medications Aspirin (Aspirin Chewable) 81 mg PO DAILY [facility] Last Admin: 05/09/18 10:51 Dose: 81 mg Sodium Chloride (Sodium Chloride 0.9%) 1,000 mls @ 100 mls/hr IV .Q10H [facility] Last Admin: 05/08/18 12:30 Dose: 100 mls/hr Levothyroxine Sodium (Synthroid) 150 mcg PO 0600 [facility] Pantoprazole Sodium (Protonix Ec Tab) 40 mg PO DAILY [facility] Last Admin: 05/09/18 10:51 Dose: 40 mg - Labs Labs: 05/09/18 08:15 05/09/18 06:30 PT 11.2 SECONDS (9.4-12.5) 05/08/18 12:38 INR 0.97 05/08/18 12:38 APTT 29.7 Seconds (25.1-36.5) 05/08/18 12:38 Attending/Attestation - Attestation I have personally seen and examined this patient.: Yes I have fully participated in the care of the patient.: Yes I have reviewed all pertinent clinical information, including history, physical exam and plan: Yes Notes (Text): 05/09/18 19:06 63 year old female with past medical history of hypertension, CAD, hypothyroidim and CAD s/p stents who presented with complaint of dizziness. She was referred by nephrology for orthostatic hypotension and DEANA. She was started on ivf and creatinine improved. Nephrology evaluation was appreciated. Will continue to monitor creatinine closely. Continue to hold bp meds for now. She was found to have elevated TSH likely secondary to medication noncompliance. Synthroid dose is increased. Today she was also found to have bradycardia with HR 35-50 range. Patient is not on BB. Case was discussed with Dr. Morgan who agrees to treat underlying hypothyroidism. Patient reports alot of stress at home and requested for psychiatry evaluation. Jaycob Proctor MD Hospitalist.
[2018-05-09] MEDS: Sodium Chloride 0.9% 1,000 ML IV SCH (21:08)
--- NOTE | 2018-05-10 03:16 | CON ---
DATE: 05/09/2018 ENDOCRINOLOGY CONSULT LOCATION: In room 264, bed 1. HISTORY OF PRESENT ILLNESS: This is a 63-year-old female with known history of hypothyroidism and underlying connective tissue disorders with systemic lupus and scleroderma, admitted here with progressively worsening dizziness and lightheadedness and generalized body weakness with supervening hypotension and is now being referred for endocrine evaluation and management. PAST MEDICAL HISTORY: As mentioned above, history of hypothyroidism, currently on levothyroxine taken as 137 mcg daily; history of hypertensive cardiovascular disease and dyslipidemia; history of systemic lupus with concomitant scleroderma with no current immunotherapy at this time. History of coronary artery disease with previous [id number] myocardial infarction and subsequent coronary stent placements, history of chronic kidney disease with underlying hypertensive related nephropathy from nephrosclerosis, history of chronic gastritis and Phan's esophagus with chronic upper abdominal pain and dyspepsia with episodic vomiting episodes. She also has biopsy proven IgA nephropathy and is followed closely by Nephrology at this time. FAMILY HISTORY: Positive for hypertension and diabetes and CVA. SOCIAL HISTORY: The patient has supportive family. No known substance use. PAST SURGICAL HISTORY: She had a prior cholecystectomy and C-sections as noted and also previous extensive GI and cardiac workup as noted. REVIEW OF SYSTEMS: As mentioned above. Admits to generalized body weakness with episodic bouts of dizziness and lightheadedness, worse on the day of admission. Also admits to bifrontal headaches and visual blurring with easy fatigability and tiredness and suboptimal energy level. Also admits to precordial chest pains with progressive shortness of breath especially on exertion. Her oral intake has been variable and suboptimal with nausea, dyspepsia and episodic vomiting episodes. No recent alterations of bowel and urinary patterns. PHYSICAL EXAMINATION: GENERAL: This is an asthenic female, in no apparent distress. VITAL SIGNS: Blood pressure of 100/70, pulse of 80 beats per minute, regular, temperature 98, respirations 20, height is 5 feet 1 inches, weight is 132 pounds. HEENT: Head normocephalic. Eyes anicteric with pink conjunctivae. Funduscopy not possible at this time. Ears, nose and throat otherwise normal. NECK: Supple. Thyroid gland shows mild nodular thyromegaly, which is firm and nontender, but no overt palpable nodules or masses or cervical adenopathy noted. HEART: Adynamic precordium. S1, S2 is rapid and regular. LUNGS; Clear to auscultation. ABDOMEN: Flat, soft with positive bowel sounds. EXTREMITIES: No peripheral edema. Pulses are +2 bilaterally. LABORATORY DATA: Her chemistries showed a BUN of 21, sodium 142, potassium 4.3, chloride 112, CO2 of 24, glucose 99 and creatinine 1.3. Her free T4 is 1.01 with a TSH of 12. ASSESSMENT: This is a 63-year-old female with subclinical hypothyroidism, most likely related to a subtherapeutic regimen with underlying autoimmune thyroiditis, presenting here with constitutional symptoms and gastrointestinal-related manifestations of nausea and dyspepsia and vomiting and is undergoing gastrointestinal and nephrology workup at this time. Although remote, but possible, we also have to exclude any other underlying autoimmune endocrinopathy such as hypoadrenalism or Marquis's disease. She also has significant connective tissue disorders with scleroderma and systemic lupus as mentioned in the historical data. PLAN OF MANAGEMENT: We will obtain a comprehensive thyroid hormonal profile with a total T4 and TSH and also include a thyroid peroxidase antibody, which will confirm and/or indicate the presence of underlying thyroid autoimmunity. We will also add a basal serum cortisol level with an ACTH level as ordered for tomorrow morning. We will obtain serial chemistries and supplement accordingly as needed. Concur with the present renal management as ordered. We will follow. Radha Colon MD
[2018-05-10] MEDS ORDERED: Levothyroxine 150 MCG TAB PO SCH (06:00)
[2018-05-10 06:37] LABS: BASO # 0.01 K/mm3 (0.0-2.0); BASO % 0.3 % (0.0-3.0); EOS # 0.1 (0.0-0.7); GRAN # 2.65 (1.4-6.5); GRAN % 66.2 % (50.0-68.0); HEMOGLOBIN 11.4 g/dL (12.0-16.0); MEAN CELL VOLUME 92.2 fl (80.0-105.0); MEAN CORPUSCULAR HEMOGLOBIN 29.6 pg (25.0-35.0); MEAN CORPUSCULAR HGB CONC 32.1 g/dl (31.0-37.0); MEAN PLATELET VOLUME 10.7 fl (7.0-11.0); MONO # 0.2 (0.1-0.6); MONO % 5.5 % (1.0-6.0); RBC 3.85 10^6/uL (3.5-6.1); RED CELL DISTRIBUTION WIDTH 13.8 % (11.5-14.5)
[2018-05-10 06:58] LABS: ALB/GLOB RATIO 1.2 (1.1-1.8); ALBUMIN 3.5 g/dL (3.0-4.8); CALCIUM 8.8 mg/dL (8.4-10.5)
[2018-05-10 07:12] LABS: T4 8.3 ug/dL (5.5-11.0)
[2018-05-10] MEDS: Pantoprazole 40 mg EC Tab PO SCH (09:52)
--- NOTE | 2018-05-10 10:33 | CON ---
DATE: 05/10/2018 CARDIOLOGY CONSULTATION HISTORY: The patient is a 63-year-old woman, who presents with dizziness and orthostatic hypotension. She was found to be bradycardic with sinus bradycardia down to the 30s. The patient's past medical history includes cardiac catheterization with angioplasty done in the past. Her last procedure, which was in 03/2018 revealed an ejection fraction of 50%. She has a documented chronically occluded RCA in the past. There is a patent stent in the LAD. In addition, the patient is hypothyroid and is currently on Synthroid replacement. SOCIAL HISTORY: The patient does not smoke. REVIEW OF SYSTEMS: No angina. No shortness of breath. No edema. The patient's symptoms are much improved today. PHYSICAL EXAMINATION: VITAL SIGNS: Blood pressure is 176/87, the heart rate is in the 70s. NECK: Negative JVD. LUNGS: Without rales. HEART: Reveals S1, S2. EXTREMITIES: Without edema. EKG shows sinus bradycardia. LABORATORY DATA: Hemoglobin is 11.4. Chemistries: Troponin is negative x1. Her thyroid function reveals TSH of 12. IMPRESSION: 1. Marked sinus bradycardia with symptomatic. 2. Gross hypothyroidism. 3. Stable angina. 4. Coronary artery disease. 5. Old [id number] inferior wall myocardial infarction. 6. Normal left ventricular function. 7. Hypertension. PLAN: Given these findings, we will keep the patient on telemetry until her thyroid can be adequately replaced and the patient is no longer hemodynamically compromised. Reese Morgan MD
[2018-05-10] MEDS ORDERED: Magnesium Oxide 400 mg Tab UD PO SCH (11:45)
[2018-05-10 11:47] VITALS: O2SAT 97
[2018-05-10] MEDS ORDERED: Magnesium Sulfate 2 gm/50 ml 2 GM/50 ML BAG IVPB ONE (12:52)
[2018-05-10 14:18] VITALS: BP 154/80; RESP 21; TEMP 98.1
[2018-05-10 15:08] VITALS: PULSE 62
--- NOTE | 2018-05-10 15:20 | CP.PCM.PN ---
Subjective - Date & Time of Evaluation Date of Evaluation: 05/10/18 Time of Evaluation: 15:18 - Subjective Subjective: Nephrology Consultation Note: Assessment: Stable Acute kidney injury likely pre-renal and low BP related orthostatic hypotension ? due to intravascular depletion due to GI fluid loss . pt also bradycardic. can have autonomic dysfunction due to scleroderma as well SLE , scleroderma (anti-centromere Ab+), CAD, chronic dysphagia, greene esophagus, hypertension x 20 years and biopsy proven IgA nephropathy in 2012 CKD stage 3 with baseline cr 1.1-1.4 mg/dL,Anemia, MGUS Hypothyroidism, hyperlipidemia Plan No acute need for renal replacement therapy at this time. Maintain hemodynamics stable. Avoid hypotension. Patient not on ACEI/ARB due to recent DEANA and low BP Monitor Input/Output, daily weights and renal function with basic metabolic panel can continue with IVF as NS monitor orthostatic BP. BP better with IVF and thryoid supplements cardiology eval for bradycardia fall precautions sent renin/juani Dose meds/antibiotics for reduced GFR. Avoid fleets enema/magnesium based laxatives. Avoid nephrotoxins/NSAIDs/ iodinated contrast (unless needed emergently) Glycemic control Further work up/management as per primary team pt stable for d/c from renal perspective when planned pt has f/up in 2 weeks Thanks for allowing me to participate in care of your patient. Will follow patient with you. Please call if any Qs. had d/w team Dr Tyler Moreira Office: [phone] CC: dizziness HPI: Pt is a 63 y/o F with reported hx of SLE , scleroderma (anti-centromere Ab+), CAD, chronic dysphagia, greene esophagus, hypertension x 20 years and biopsy proven IgA nephropathy in 2012 and CKD stage 3 with baseline cr 1.1-1.4 mg/dL, also Anemia, MGUS (f/up by heme), hypothyroidism admitted to hospital with symptomatic orthostatic hypotension nausea/vomiting and DEANA hence renal consulted. also episodes of bradycardia in hospital, HR 30-50 range pt feels same. no diarrhoea/nausea/vomiting. denies Wt loss. no fever/chills. reports family stress, says had a nervous breakdown. feels depressed due to family stress/situation. hasn't been taking most meds for last 1 month. Denies chest pain, palpitation, shortness of breath, leg swelling. no urinary complaints ROS; feels better. denies dizziness now Cardiovascular: No chest pain. Pulmonary: No shortness of breath Gastrointestinal: denies abdominal pain no nausea. no vomiting. Genitourinary: No pain while urinating. Denies blood in urine. Rest all other negative except as mentioned in HPI Exam; General Appearance: Comfortable, in no acute respiratory distress, co- operative . Vitals reviewed and noted. Head; Atraumatic, normocephalic ENT: no ulcers no thrush. Tongue is midline. Oropharynx: no rash or ulcers. EYES: Pupils are equal, round and reactive to light accommodation. Eye muscles and extraocular movement intact. Sclera is anicteric. Neck; supple no lymphadenopathy, no thyromegaly or bruit Lungs: Normal respiratory rate/effort. Breath sounds bilateral equal and clear Heart: Normal rate. s1s2 normal. No rub or gallop. Extremities: no edema. No varicose veins Neurological: Patient is alert, awake and oriented to person, place and time. No focal deficit. Strength bilateral appropriate and equal Skin: Warm and dry. Normal turgor. No rash. Palpitation: Normal elasticity for age Abdomen: Abdomen is soft. Bowel sounds +. There is no abdominal tenderness, no guarding/rigidity or organomegaly Psych: normal insight and normal affect/mood MSK: no joint tenderness or swelling. Digits and nails normal, no deformity : kidney or bladder not palpable Work up: kidney BX 2012: IgA nephropathy [id number] Imaging: unremarkable for kidneys renin/juani and metanephrines level WNL, no FREDDY on doppler Bovina/lambda 2.65 but SPEP neg 04/23/18: Hb 14.2 tsat 24% Ferritin 53 SPEP negative Na 140 K 4.3 Bicarb 24 BUN/cr 17/0.85 Ca 9.2 05/02/18: 05/02/18: Na 137 K 4.7 Bicarb 26 BUN/cr 33/1.9 Ca 9.2 TSH 10 Vit D 25 PTH 244 Phos 3.7 ESR 7, cortisol 15 c3/c4 normal PAT + witn anti-centromere ab+ and DNA ab neg urine pro/blood neg, pr/cr and alb/cr neg Objective - Vital Signs/Intake and Output Vital Signs (last 24 hours): Temp Pulse Resp BP Pulse Ox 98.1 F 62 21 154/80 H 97 05/10/18 12:00 05/10/18 12:00 05/10/18 12:00 05/10/18 12:00 05/10/18 10:00 Intake and Output: 05/10/18 05/10/18 06:59 18:59 Intake Total 1980 Output Total 1000 Balance 980 - Medications Medications: Current Medications Aspirin (Aspirin Chewable) 81 mg PO DAILY [facility] Last Admin: 05/10/18 09:52 Dose: 81 mg Levothyroxine Sodium (Synthroid) 150 mcg PO 0600 [facility] Last Admin: 05/10/18 05:14 Dose: 150 mcg Magnesium Oxide (Mag-Ox) 400 mg PO BID [facility] Last Admin: 05/10/18 12:18 Dose: 400 mg Pantoprazole Sodium (Protonix Ec Tab) 40 mg PO DAILY [facility] Last Admin: 05/10/18 09:52 Dose: 40 mg - Labs Labs: 05/10/18 05:30 05/10/18 05:30 PT 11.2 SECONDS (9.4-12.5) 05/08/18 12:38 INR 0.97 05/08/18 12:38 APTT 29.7 Seconds (25.1-36.5) 05/08/18 12:38
--- NOTE | 2018-05-10 19:27 | PN ---
DATE: 05/10/2018 ENDOCRINOLOGY FOLLOWUP NOTE LOCATION: In room 264. SUBJECTIVE: This is a 63-year-old female with recent overt hypothyroidism noted both historically, clinically, and biochemically related to inadvertent drug omission and is now being followed closely for metabolic management. Her constitutional symptoms, generalized body weakness, and fatigue have subsided as noted overnight. Moreover, the dizziness and lightheadedness have also improved accordingly. LABORATORY DATA: Her latest chemistries today showed a BUN of 15. Sodium 143, potassium 4.3, chloride 112, CO2 of 25. Glucose 96. Creatinine 1.2. Her latest thyroid study showed a T4 of 8.3 with a TSH of 16.8 and a serum cortisol of 11. So at this time, we will continue the modified and higher dosing of the levothyroxine given as 150 mcg daily before breakfast as ordered. We will obtain serial chemistries and supplement accordingly as needed. We will concur with the plan for eventual discharge and she will follow with her primary physician for ongoing medical and thyroid evaluation and management and also for future dose adjustments of her levothyroxine replacement therapy as indicated. So we will highly recommend the dosing of levothyroxine at 150 mcg daily as ordered. We will obtain serial chemistries and supplement accordingly as needed. We will follow. Radha Colon MD
--- NOTE | 2018-05-10 20:57 | CP.PCM.DIS ---
<Duncan Dickson - Last Filed: 05/10/18 20:53> Provider - Provider Date of Admission: 05/09/18 16:05 Attending physician: Jaycob Proctor MD Primary care physician: Donnell Hayward MD Time Spent in preparation of Discharge (in minutes): 45 Hospital Course - Lab Results Lab Results: Most Recent Lab Values WBC 4.0 10^3/ul (4.5-11.0) L 05/10/18 05:30 RBC 3.85 10^6/uL (3.5-6.1) 05/10/18 05:30 Hgb 11.4 g/dL (12.0-16.0) L 05/10/18 05:30 Hct 35.5 % (36.0-48.0) L 05/10/18 05:30 MCV 92.2 fl (80.0-105.0) 05/10/18 05:30 MCH 29.6 pg (25.0-35.0) 05/10/18 05:30 MCHC 32.1 g/dl (31.0-37.0) 05/10/18 05:30 RDW 13.8 % (11.5-14.5) 05/10/18 05:30 Plt Count 154 10^3/uL (120.0-450.0) 05/10/18 05:30 MPV 10.7 fl (7.0-11.0) 05/10/18 05:30 Gran % 66.2 % (50.0-68.0) 05/10/18 05:30 Lymph % (Auto) 26.0 % (22.0-35.0) 05/10/18 05:30 Leon % (Auto) 5.5 % (1.0-6.0) 05/10/18 05:30 Eos % (Auto) 2.0 % (1.5-5.0) 05/10/18 05:30 Baso % (Auto) 0.3 % (0.0-3.0) 05/10/18 05:30 Gran # 2.65 (1.4-6.5) 05/10/18 05:30 Lymph # (Auto) 1.0 (1.2-3.4) L 05/10/18 05:30 Leon # (Auto) 0.2 (0.1-0.6) 05/10/18 05:30 Eos # (Auto) 0.1 (0.0-0.7) 05/10/18 05:30 Baso # (Auto) 0.01 K/mm3 (0.0-2.0) 05/10/18 05:30 ESR 15 mm/hr (0.0-20.0) 05/08/18 12:38 PT 11.2 SECONDS (9.4-12.5) 05/08/18 12:38 INR 0.97 05/08/18 12:38 APTT 29.7 Seconds (25.1-36.5) 05/08/18 12:38 Sodium 143 mmol/L (132-148) 05/10/18 05:30 Potassium 4.3 mmol/L (3.6-5.0) 05/10/18 05:30 Chloride 112 mmol/L (98-107) H 05/10/18 05:30 Carbon Dioxide 25 mmol/L (21-33) 05/10/18 05:30 Anion Gap 11 (10-20) 05/10/18 05:30 BUN 15 mg/dL (7-21) 05/10/18 05:30 Creatinine 1.2 mg/dl (0.7-1.2) 05/10/18 05:30 Est GFR ( Amer) 55 05/10/18 05:30 Est GFR (Non-Af Amer) 46 05/10/18 05:30 POC Glucose (mg/dL) 120 mg/dL (65-110) H 05/08/18 12:26 Random Glucose 96 mg/dL (70-110) 05/10/18 05:30 Serum Osmolality 297 mosm/kg (272-300) 05/08/18 13:00 Calcium 8.8 mg/dL (8.4-10.5) 05/10/18 05:30 Phosphorus 2.8 mg/dL (2.5-4.5) 05/10/18 05:30 Magnesium 1.6 mg/dL (1.7-2.2) L 05/10/18 05:30 Total Bilirubin 0.2 mg/dL (0.2-1.3) 05/10/18 05:30 AST 21 U/L (14-36) 05/10/18 05:30 ALT 20 U/L (7-56) 05/10/18 05:30 Alkaline Phosphatase 52 U/L (38-126) 05/10/18 05:30 Troponin I < 0.01 ng/mL 05/09/18 10:00 Total Protein 6.4 g/dL (5.8-8.3) 05/10/18 05:30 Albumin 3.5 g/dL (3.0-4.8) 05/10/18 05:30 Globulin 2.9 gm/dL 05/10/18 05:30 Albumin/Globulin Ratio 1.2 (1.1-1.8) 05/10/18 05:30 Triglycerides 115 mg/dL (35-160) 05/08/18 16:00 Cholesterol 178 mg/dL (130-200) 05/08/18 16:00 LDL Cholesterol Direct 91 mg/dL (0-129) 05/08/18 16:00 HDL Cholesterol 38 mg/dL (29-60) 05/08/18 16:00 Free T4 1.01 ng/dL (0.78-2.19) 05/09/18 07:30 Thyroxine (T4) 8.3 ug/dL (5.5-11.0) 05/10/18 05:30 TSH 3rd Generation 16.80 mIU/mL (0.46-4.68) H 05/10/18 05:30 Cortisol AM Sample 11.0 ug/dL (4.46-22.7) 05/10/18 05:30 Urine Color Yellow (YELLOW) 05/08/18 19:25 Urine Appearance Clear (CLEAR) 05/08/18 19:25 Urine pH 6.0 (4.7-8.0) 05/08/18 19:25 Ur Specific [place] 1.015 (1.005-1.035) 05/08/18 19:25 Urine Protein Negative mg/dL (<30 mg/dL) 05/08/18 19:25 Urine Glucose (UA) Negative mg/dL (NEGATIVE) 05/08/18 19:25 Urine Ketones Negative mg/dL (NEGATIVE) 05/08/18 19:25 Urine Blood Negative (NEGATIVE) 05/08/18 19:25 Urine Nitrate Negative (NEGATIVE) 05/08/18 19:25 Urine Bilirubin Negative (NEGATIVE) 05/08/18 19:25 Urine Urobilinogen 0.2 E.U./dL (<1 E.U./dL) 05/08/18 19:25 Ur Leukocyte Esterase Negative Myla/uL (NEGATIVE) 05/08/18 19:25 Urine Osmolality 505 mosm/kg (300-1000) 05/08/18 19:25 Ur Random Creatinine 84 mg/dL 05/08/18 19:25 Ur Random Sodium 98 meq/L 05/08/18 19:25 - Hospital Course Hospital Course: Upon admission: Patient is a 63 yo female with PMH of HTN, HLD, SLE, Scleroderma, Phan's, CKD, CAD, Hypothyroidism, NSTEMI with stents presents to the hospital for evalu ation of dizziness and lightheadedness. Patient states that 2 months ago she noted her blood pressure to be very low in the 40s/20s. Patient started to take off blood pressure medications without advice of her doctors to improve her blood pressure because she was feeling dizzy. Patient continued to remove all of her blood pressures and noted when she measured that her blood pressure was 100/65 without any blood pressure medications. Patient went to speak with PMD, Dr. Hayward, who referred her to Dr. Moreira. Patient states she had similar symptoms a year ago and went through an extensive GI workup with no formal diagnosis. Of note she had anemia during the last workup which required GI involvement. Patient was nauseous last week with episodes of vomiting however no complaints of nausea this week. Patient states she has increased stress at home due to her daughter/ moving into the house with their children. Patient admits to dizziness, lightheadedness, and weight loss (does not know how much). Patient denies fevers, chills, sob, chest pain, diarrhea or constipation, nausea/vomiting, weakness, vision changes. Upon further discussion, patient admitted she stopped taking all at home medications. She also stopped following up with an cable respooler as the one she had been seeing had retired, and she was dissatisfied with the others in the practice. Hospital Course: 63 year old female who was admitted for dizziness. During hospital stay, patient had several episodes of bradycardia and was moved to telemetry. Orthostatic blood pressure was obtained and resulted within normal limits. Her blood pressure medications were stopped by patient herself as noted in HPI. Cardiology was consulted. As per cardiology, bradycardia was likely secondary to hypothyroidism. She was told to continue to follow up with them outpatient. TSH obtained was elevated, however, upon further discussion patient admitted to noncompliance with her home medications. 150mcg Synthroid was resumed and endocrinology was consulted. Endocrinology ordered comprehensive thyroid profile with thyroid peroxidase antibody and basal cortisol with ACTH. She recommended that patient continue with 150mcg Synthroid, and to follow up with her in the office outpatient. Also, her creatinine was found to be elevated. She was given fluids, repeat CMP obtained, and nephrology consulted. U/A was ordered and resulted benign. Nephrology recommended to continue with current treatment plan, and to follow up outpatient. During her admission, patient expressed having problems at home, resulting in crying outburst. She requested to be seen by psychiatry. Psychiatry evaluated patient and attributed crying episodes to patients social situation. Patient was evaluated by physical therapy, and was medically stable for discharge home. Discharge plan: Patient is stable for discharge to home as per Dr. Proctor. She was counseled to return to the emergency department if symptoms return or worsen. Patient is to follow up with primary medical doctor, Dr. Donnell Hayward, within 3-5 days of discharge. Patient is to follow up with Dr. Morgan, cardiology, as instructed. Patient to follow up with Dr. Moreira, nephrology, as scheduled. Patient to follow up with endocrinology, Dr. Colon, within 3-5 days of discharge. Patient is to resume all medications as prescribed and instructed in discharge. Patient understands and agrees with discharge plan. In length it was discussed with patient not to restart her blood pressure medications even if the blood pressure begins to rise on the synthroid medication. Patient was educated that is very importnat to followup with Dr. Hayward outpatient for further ambulatory blood pressure measurements. Patient understood and responded that both her PMD and Dr. Moreira are the doctors who manage her blood pressure. Patient on 3 blood pressure medications and was told to only continue synthroid until she meets with her pmd. Disclaimer: Written above is a synopsis of patients current hospital admission. For full admission refer to EMR. Discharge Exam - Head Exam Head Exam: NORMAL INSPECTION, NORMOCEPHALIC - Eye Exam Eye Exam: EOMI, Normal appearance. absent: Nystagmus, Scleral icterus - Respiratory Exam Respiratory Exam: NORMAL BREATHING PATTERN. absent: Rhonchi, Wheezes, Respiratory Distress - Cardiovascular Exam Cardiovascular Exam: REGULAR RHYTHM, +S1, +S2 - GI/Abdominal Exam GI & Abdominal Exam: Normal Bowel Sounds, Soft. absent: Tenderness - Extremities Exam Extremities exam: normal capillary refill, normal inspection, pedal pulses present - Neurological Exam Neurological exam: Alert, Normal Gait, Oriented x3 - Psychiatric Exam Psychiatric exam: Normal Affect, Normal Mood - Skin Skin Exam: Intact, Normal Color Discharge Plan - Discharge Medications Prescriptions: Levothyroxine [Levoxyl] 0.15 mg PO DAILY #30 tab - Follow Up Plan Condition: STABLE Disposition: HOME/ ROUTINE Instructions: Hypothyroidism (Underactive Thyroid), Acute Kidney Failure, Anxiety, Adult (DC) Additional Instructions: 1. Patient is stable for discharge to home as per Dr. Proctor. 2. Patient should followup within 3-5 days with primary medical doctor, Dr. Hayward. Patient should follow up with Dr. Moreira within 3-5 days of discharge from hospital. Patient is to follow up with Dr. Colon and her information will be given with this discharge instructions. 3. Patient educated to follow up with cable respooler Dr. Colon because she no longer follows up with her prior cable respooler. 3. Patient should followup with Dr. Hayward to restart home medications as patient has not been taking any of her medications for past 2 months. Patient will start taking Synthroid at 150 mcg once a day in the morning. 4. Patient should return to the hospital if the symptoms recur or worsen. 5. Patient understands this plan and agrees to the above. Referrals: Radha Colon MD [Medical Doctor] - Donnell Hayward MD [Primary Care Provider] - <Jaycob Proctor - Last Filed: 05/11/18 11:33> Provider - Provider Date of Admission: 05/09/18 16:05 Attending physician: Jaycob Proctor MD Primary care physician: Donnell Hayward MD Hospital Course - Lab Results Lab Results: Most Recent Lab Values WBC 4.0 10^3/ul (4.5-11.0) L 05/10/18 05:30 RBC 3.85 10^6/uL (3.5-6.1) 05/10/18 05:30 Hgb 11.4 g/dL (12.0-16.0) L 05/10/18 05:30 Hct 35.5 % (36.0-48.0) L 05/10/18 05:30 MCV 92.2 fl (80.0-105.0) 05/10/18 05:30 MCH 29.6 pg (25.0-35.0) 05/10/18 05:30 MCHC 32.1 g/dl (31.0-37.0) 05/10/18 05:30 RDW 13.8 % (11.5-14.5) 05/10/18 05:30 Plt Count 154 10^3/uL (120.0-450.0) 05/10/18 05:30 MPV 10.7 fl (7.0-11.0) 05/10/18 05:30 Gran % 66.2 % (50.0-68.0) 05/10/18 05:30 Lymph % (Auto) 26.0 % (22.0-35.0) 05/10/18 05:30 Leon % (Auto) 5.5 % (1.0-6.0) 05/10/18 05:30 Eos % (Auto) 2.0 % (1.5-5.0) 05/10/18 05:30 Baso % (Auto) 0.3 % (0.0-3.0) 05/10/18 05:30 Gran # 2.65 (1.4-6.5) 05/10/18 05:30 Lymph # (Auto) 1.0 (1.2-3.4) L 05/10/18 05:30 Leon # (Auto) 0.2 (0.1-0.6) 05/10/18 05:30 Eos # (Auto) 0.1 (0.0-0.7) 05/10/18 05:30 Baso # (Auto) 0.01 K/mm3 (0.0-2.0) 05/10/18 05:30 ESR 15 mm/hr (0.0-20.0) 05/08/18 12:38 PT 11.2 SECONDS (9.4-12.5) 05/08/18 12:38 INR 0.97 05/08/18 12:38 APTT 29.7 Seconds (25.1-36.5) 05/08/18 12:38 Sodium 143 mmol/L (132-148) 05/10/18 05:30 Potassium 4.3 mmol/L (3.6-5.0) 05/10/18 05:30 Chloride 112 mmol/L (98-107) H 05/10/18 05:30 Carbon Dioxide 25 mmol/L (21-33) 05/10/18 05:30 Anion Gap 11 (10-20) 05/10/18 05:30 BUN 15 mg/dL (7-21) 05/10/18 05:30 Creatinine 1.2 mg/dl (0.7-1.2) 05/10/18 05:30 Est GFR ( Amer) 55 05/10/18 05:30 Est GFR (Non-Af Amer) 46 05/10/18 05:30 POC Glucose (mg/dL) 120 mg/dL (65-110) H 05/08/18 12:26 Random Glucose 96 mg/dL (70-110) 05/10/18 05:30 Serum Osmolality 297 mosm/kg (272-300) 05/08/18 13:00 Calcium 8.8 mg/dL (8.4-10.5) 05/10/18 05:30 Phosphorus 2.8 mg/dL (2.5-4.5) 05/10/18 05:30 Magnesium 1.6 mg/dL (1.7-2.2) L 05/10/18 05:30 Total Bilirubin 0.2 mg/dL (0.2-1.3) 05/10/18 05:30 AST 21 U/L (14-36) 05/10/18 05:30 ALT 20 U/L (7-56) 05/10/18 05:30 Alkaline Phosphatase 52 U/L (38-126) 05/10/18 05:30 Troponin I < 0.01 ng/mL 05/09/18 10:00 Total Protein 6.4 g/dL (5.8-8.3) 05/10/18 05:30 Albumin 3.5 g/dL (3.0-4.8) 05/10/18 05:30 Globulin 2.9 gm/dL 05/10/18 05:30 Albumin/Globulin Ratio 1.2 (1.1-1.8) 05/10/18 05:30 Triglycerides 115 mg/dL (35-160) 05/08/18 16:00 Cholesterol 178 mg/dL (130-200) 05/08/18 16:00 LDL Cholesterol Direct 91 mg/dL (0-129) 05/08/18 16:00 HDL Cholesterol 38 mg/dL (29-60) 05/08/18 16:00 Free T4 1.01 ng/dL (0.78-2.19) 05/09/18 07:30 Thyroxine (T4) 8.3 ug/dL (5.5-11.0) 05/10/18 05:30 TSH 3rd Generation 16.80 mIU/mL (0.46-4.68) H 05/10/18 05:30 Cortisol AM Sample 11.0 ug/dL (4.46-22.7) 05/10/18 05:30 Urine Color Yellow (YELLOW) 05/08/18 19:25 Urine Appearance Clear (CLEAR) 05/08/18 19:25 Urine pH 6.0 (4.7-8.0) 05/08/18 19:25 Ur Specific [place] 1.015 (1.005-1.035) 05/08/18 19:25 Urine Protein Negative mg/dL (<30 mg/dL) 05/08/18 19:25 Urine Glucose (UA) Negative mg/dL (NEGATIVE) 05/08/18 19:25 Urine Ketones Negative mg/dL (NEGATIVE) 05/08/18 19:25 Urine Blood Negative (NEGATIVE) 05/08/18 19:25 Urine Nitrate Negative (NEGATIVE) 05/08/18 19:25 Urine Bilirubin Negative (NEGATIVE) 05/08/18 19:25 Urine Urobilinogen 0.2 E.U./dL (<1 E.U./dL) 05/08/18 19:25 Ur Leukocyte Esterase Negative Myla/uL (NEGATIVE) 05/08/18 19:25 Urine Osmolality 505 mosm/kg (300-1000) 05/08/18 19:25 Ur Random Creatinine 84 mg/dL 05/08/18 19:25 Ur Random Sodium 98 meq/L 05/08/18 19:25 Attending/Attestation - Attestation I have personally seen and examined this patient.: Yes I have fully participated in the care of the patient.: Yes I have reviewed all pertinent clinical information, including history, physical exam and plan: Yes Notes (Text): 05/10/18 63 year old female with past medical history of hypertension, CAD, hypothyroidim and CAD s/p stents who presented with complaint of dizziness. She was referred by nephrology for orthostatic hypotension and DEANA. She was started on ivf and creatinine improved. She was seen by nephrology who recommended close outpatient follow up. BP medications are on hold. She was also found to have elevated TSH likely secondary to medication noncompliance. She also had significant bradycardia with HR 35-50 range. Her synthroid dose wa s increased. HR improved. Cardiology evaluation was appeciated who recommended treating underlying hypothyroidism. Endocrinology evaluation was also appreciated who agreed with increasing synthroid and outpatient follow up. Patient is discharged home to follow up with her pmd. Follow up with nephrology and cardiology. Hold BP medications until cleared by pmd/nephrology. Avoid beta blockers. Follow up with endocrinology. Repeat TFTs in 4-6 weeks. Jaycob Proctor MD Hospitalist.
--- NOTE | 2018-05-11 05:58 | CON ---
DATE: 05/10/2018 HISTORY OF PRESENT ILLNESS: In short, the patient is a 63-year-old female. The patient has multiple medical issues including hypertension, hyperlipidemia, SLE, scleroderma, Phan's esophagus, chronic kidney disease, coronary artery disease, hypothyroidism, NSTEMI. The patient was admitted for evaluation of hypotension and dizziness. Psych consult was called for evaluation of mood symptoms which is related to the social situation the patient is currently in. The patient was seen in the Transition, presented to be talkative, over-inclusive. The patient said that her son's family moved in into her two-bedroom apartment, and at present moment, the situation out of control. The patient lives in senior public housing. The patient, her son and her are supposed to live in that place; but patient's other son, his , as well as 's mother and three kids moved in into her apartment. The patient was feeling overwhelmed. At the same time, the patient feels that she is obligated to help her grandkids. The patient feels that she has been used. The patient reported that family is very disrespectful to her. She is the one who is doing all the house chores, and at times she is cursed at. This law writer has the impression that depressive symptoms related directly to her social situation and she is the only one who is making decisions for her family and house situation. At the same time, the patient does not want to change this addition because the patient feeling responsible for the 3-year-old, 2-year-old and 1-year-old grandkids. The patient reported that she feels overwhelmed at times, depressed about situation, but denied thoughts of harming herself or others. The patient says that she already spoke to the geriatric social work professor, and herself, she called to multiple shelters in the area, but shelters are packed. The patient denied hearing voices, denied seeing things, denied paranoid ideation. The patient denied thoughts of harming herself or others, as this law writer mentioned above. Vital signs: Stable. Temperature 98.1, pulse is 62, blood pressure 154/80, respirations 21, oxygen saturation is 97. Medications reviewed. The patient is on aspirin, Protonix and sodium chloride. The patient denied history of mental illness, denied history of admissions. Labs reviewed. MENTAL STATUS EXAM: The patient presented to be alert and oriented, emotional. Mood described as overwhelmed. Affect was constricted. Thought process seems to be coherent and goal directed, but at times over-inclusive. Thought content; the patient denied visual, auditory, or tactile hallucinations. Denied paranoid ideation. The patient denied thoughts of harming herself or others. Denied intent or plan. Insight and judgment seems to be fair. Impulses are well controlled. IMPRESSION: Rule out adjustment disorder. PLAN: The patient said that one of the grandkids required to have surgery, and this surgery will take place in June, and after that she will make decision that her family need to leave the house. The patient reported that if her son's family would not move in, she would be perfectly fine. The patient denied that she is having any thoughts of harming herself or others. The patient was evaluated by geriatric social work professor. This law writer could not find any reasons why help the patient decide geriatric social work professor. The patient is not in any imminent danger to self or others. Thank you very much for letting me participate in the care of your patient. Should you have any questions, give me a call back. Esther Reyes MD
[2018-05-13 20:09] LABS: ALDO/PRA RATIO 14.3 Ratio (0.9-28.9)
== END 2018-05-10 17:14 | disposition home or self-care (01) | DRG 644 ==
LOC: ED 11:56 → ERH 13:16 → 3RSO 15:20 → 2RNO 05-09 14:39 → OBSVTOIN 05-09 16:05
PROVIDERS: ADMIT Internal Medicine; ATTEND Internal Medicine
DX: E02 Subclinical iodine-deficiency hypothyroidism (principal); N17.9 Acute kidney failure, unspecified; I95.1 Orthostatic hypotension; I12.9 Hypertensive chronic kidney disease with stage 1 through stage 4 chronic kidney disease, or unspecified chronic kidney disease; N18.3 Chronic kidney disease, stage 3 (moderate); R13.12 Dysphagia, oropharyngeal phase; M32.9 Systemic lupus erythematosus, unspecified; M34.9 Systemic sclerosis, unspecified; K22.70 Barrett's esophagus without dysplasia; I25.118 Atherosclerotic heart disease of native coronary artery with other forms of angina pectoris; R00.1 Bradycardia, unspecified; E06.3 Autoimmune thyroiditis; Z91.120 Patient's intentional underdosing of medication regimen due to financial hardship; E78.5 Hyperlipidemia, unspecified; Z79.82 Long term (current) use of aspirin; Z95.5 Presence of coronary angioplasty implant and graft; Z91.14 Patient's other noncompliance with medication regimen; I25.2 Old myocardial infarction; Z83.3 Family history of diabetes mellitus

== ENCOUNTER 2018-07-01 09:20 | Day surgery (SDC) | payer MEDICARE, MEDICAID ==
[2018-05-29 11:50] VITALS: BMI 23.2
[2018-07-01 09:53] VITALS: O2SAT 99
[2018-07-01] MEDS ORDERED: Propofol 10 mg/ml Inj (20 ML) ONE ×3 (12:25→12:54)
[2018-07-01] MEDS ORDERED: Sodium Chloride 0.9% 1,000 ML IV SCH (12:30)
[2018-07-02 00:17] VITALS: BP 127/59; PULSE 70; RESP 16; TEMP 98
== END 2018-07-01 14:47 | disposition home or self-care (01) ==
LOC: ENDO 09:20
PROVIDERS: ATTEND Internal Medicine Gastroenterology
DX: K22.70 Barrett's esophagus without dysplasia (principal); K29.50 Unspecified chronic gastritis without bleeding; K31.84 Gastroparesis; K44.9 Diaphragmatic hernia without obstruction or gangrene; I25.10 Atherosclerotic heart disease of native coronary artery without angina pectoris; I10 Essential (primary) hypertension
CPT/HCPCS: 43239; 88305; 88312; 88342; J2001; J2704; J7030; J7040